=== PATIENT | male | born 1980 | race Caucasian/White ===

== ENCOUNTER 2016-11-17 08:45 | Day surgery (SDC) | payer OTHER ==
[~2016-11-17] VITALS: Ht 165.1 cm; Wt 93.1 kg
[~2016-11-17 08:45] MED LIST: AMOXICILLIN500 MG PO; IBUPROFEN600 MG PO; IBUPROFEN800 MG PO; LUMIGAN2.5 M1 OPTH; NAPROSYN500 MG PO; NAPROXEN500 MG PO; NORCO 5-325 TA1 EACH PO
--- NOTE | 2016-11-17 10:34 | NUR ---
11/17/16 1034 Allison Sanchez 1020- PT ARRIVED TO PACU WITH ORAL AIRWAY IN PLACE. ICE PLACED ON RIGHT HAND. VSS. ABD SOFT AND ROUND.
--- NOTE | 2016-11-22 07:08 | OR ---
[facility] [address] [place], [place] [address] Signed DATE OF PROCEDURE: 11/17/16 PREOPERATIVE DIAGNOSIS: Carpal tunnel syndrome, right. POSTOPERATIVE DIAGNOSIS: Carpal tunnel syndrome, right. PROCEDURE: Carpal tunnel release, right. SURGEON: Saw Freitas MD. ANESTHESIA: Was Mariam block with sedation. SPECIMENS AND COMPLICATIONS: There were no specimens or complications. TOURNIQUET TIME: Was about 25 minutes. PROCEDURE The patient was taken to the operating room. After anesthesia was performed and a Mariam block set up, the patient was gently sedated and the right upper extremity was positioned, prepped and draped in a routine sterile fashion. A volar incision was made beginning at the distal wrist flexion crease and extending distally for about 1.5 cm in line with the anterior mid axial line of the 4th ray. Skin was divided sharp l y. Subcutaneous tissue was bluntly spread. A small Heiss self-retaining retractor was placed. The transverse volar carpal ligament was identified and released with the tip of the 15 blade. Miller Porter retractor was then placed under the distal edge and the tip of a curved tenotomy scissor was used to release the transverse volar carpal ligament until the entire nerve had been decompressed distally. We then reversed direction, put the Ragnell into the proximal flap and released the distal 3 cm of the ante brachial fascia. At this point, the nerve appeared to be completely released. The wound was gently irrigated, closed in standard fashion. A sterile dressing was applied and the patient was awakened in recovery room and arrived in stable condition. Counts w ere correct and antibiotic protocols were followed. MD AZAR Miller/Harriett Electronically Signed By: SAW FREITAS MD 11/22/16 0708 PATIENT NAME: ANURADHA LIRA JR OPERATIVE REPORT DATE OF : 84 PHYSICIAN: SAW FREITAS MD REPORT #: [id number] REPORT IS CONFIDENTIAL AND NOT TO BE RELEASED WITHOUT AUTHORIZATION [facility] [address] [place] [place] [address] Signed /[id number] Electronically Signed By: SAW FREITAS MD 11/22/16 0708 PATIENT NAME: ANURADHA LIRA JR OPERATIVE REPORT DATE OF : 84 PHYSICIAN: SAW FREITAS MD REPORT #: [id number] REPORT IS CONFIDENTIAL AND NOT TO BE RELEASED WITHOUT AUTHORIZATION
== END 2016-11-17 11:42 | disposition home or self-care (01) ==
LOC: OPS 08:45 → DS 08:45 → OPS 09:45
PROVIDERS: Orthopaedic Surgery
PROC: 01N50ZZ Release Median Nerve, Open Approach (ICD-10-PCS; principal; 2016-11-17 09:45)
DX: G56.01 Carpal tunnel syndrome, right upper limb (principal)
CPT/HCPCS: 01810; J0690; J1100; J1885; J2250; J2405; J2704; J2765; J3010; J7120

== ENCOUNTER 2017-05-16 09:00 | Emergency (ER) | payer OTHER, BC ==
[~2017-05-16] VITALS: Ht 165.1 cm; Wt 93.1 kg
--- OUTSIDE RECORDS SUMMARY | ~2017-05-16 | XMS ---
Demographics + + + | Address | [address] [facility] | | | [place] [address] | + + + | Preferred Language | Unknown | + + + | Marital Status | Unknown | + + + | Roman Catholic Affiliation | Unknown | + + + | Race | Unknown | + + + | Ethnic Group | Unknown | + + + Author + + + | Author | [facility] | + + + | Organization | [facility] | + + + | Address | [address] | | | [place] [phone] | + + + | Phone | | + + + Care Team Providers + + + + | Care Life Consultant Name | Role | Phone | + + + + Unavailable | Unavailable | + + + + PROBLEMS +---------+ + + +--------+ + + | Type | Condition | ICD9-CM | [id number] | Onset | Condition | SNOMED | | | | Code | Code | Dates | Status | Code | +---------+ + + +--------+ + + | Problem | Tobacco | | Z72.0 | | Active | [id number] | | | use | | | | | | +---------+ + + +--------+ + + ALLERGIES Unknown Allergies SOCIAL HISTORY No smoking Hx information available PLAN OF CARE VITAL SIGNS MEDICATIONS Unknown Medications RESULTS No Results PROCEDURES No Known procedures IMMUNIZATIONS No Known Immunizations"
--- OUTSIDE RECORDS SUMMARY | ~2017-05-16 | XMS ---
Demographics + + + | Address | [address] | | | [place] [address] | + + + | Preferred Language | Unknown | + + + | Marital Status | Unknown | + + + | Jehovah'S Witness Affiliation | Unknown | + + + | Race | Unknown | + + + | Ethnic Group | Unknown | + + + Author + + + | Author | [facility] | + + + | Organization | [facility] | + + + | Address | [address] | | | [place] [address] | + + + | Phone | | + + + Care Team Providers + + + + | Care Reporting Lead Name | Role | Phone | + + + + Unavailable | Unavailable | + + + + PROBLEMS +---------+ + + +--------+ + + | Type | Condition | ICD9-CM | [id number] | Onset | Condition | SNOMED | | | | Code | Code | Dates | Status | Code | +---------+ + + +--------+ + + | Problem | Tobacco | | Z72.0 | | Active | [id number] | | | use | | | | | | +---------+ + + +--------+ + + ALLERGIES + + + + +---------+ | Substance | Reaction | Event Type | Date | Status | + + + + +---------+ | N.K.D.A. | Unknown | Non Drug | Oct, | Unknown | | | | Allergy | | | + + + + +---------+ SOCIAL HISTORY No smoking Hx information available PLAN OF CARE + +---------+ | Activity | Details | + +---------+ +---+ | | +---+ + + + | Follow Up | 4 Weeks Reason:null | + + + VITAL SIGNS + + + + | Height | 65 in | 2016-10-18 | + + + + | Weight | 206.8 lbs | 2016-10-18 | + + + + | BMI | 34.41 kg/m2 | 2016-10-18 | + + + + | Temperature | 97.8 degrees Fahrenheit | 2016-10-18 | + + + + | Heart Rate | 63 /min | 2016-10-18 | + + + + | Blood pressure systolic | 139 mm Hg | 2016-10-18 | + + + + | Blood pressure diastolic | 82 mm Hg | 2016-10-18 | + + + + MEDICATIONS + + + + + + + +--------+ | Medicati | Instruct | Dosage | Frequenc | Start | End Date | Duration | Status | | on | ions | | y | Date | | | | + + + + + + + +--------+ | Mobic 15 | Orally | 1 tablet | 24h | Oct, | 4 Feb, | 30 | Active | | MG | Once a | | | 2016 | 2017 | day(s) | | | | day | | | | | | | + + + + + + + +--------+ RESULTS No Results PROCEDURES No Known procedures IMMUNIZATIONS No Known Immunizations"
--- OUTSIDE RECORDS SUMMARY | ~2017-05-16 | XMS ---
Demographics + + + | Address | [address] | | | [place] [address] | + + + | Preferred Language | Unknown | + + + | Marital Status | Unknown | + + + | Latter-Day Affiliation | Unknown | + + + | Race | Unknown | + + + | Ethnic Group | Unknown | + + + Author + + + | Author | [facility] | + + + | Organization | [facility] | + + + | Address | [address] | | | [place] [phone] | + + + | Phone | | + + + Care Team Providers + + + + | Care Grocery Department Manager Name | Role | Phone | + + + + Unavailable | Unavailable | + + + + PROBLEMS +---------+ + + +--------+ + + | Type | Condition | ICD9-CM | [id number] | Onset | Condition | SNOMED | | | | Code | Code | Dates | Status | Code | +---------+ + + +--------+ + + | Problem | Tobacco | | Z72.0 | | Active | [id number] | | | use | | | | | | +---------+ + + +--------+ + + ALLERGIES Unknown Allergies SOCIAL HISTORY No smoking Hx information available PLAN OF CARE VITAL SIGNS MEDICATIONS Unknown Medications RESULTS No Results PROCEDURES No Known procedures IMMUNIZATIONS No Known Immunizations"
--- OUTSIDE RECORDS SUMMARY | ~2017-05-16 | XMS ---
Demographics + + + | Address | [address] [facility] | | | [place] [address] | + + + | Preferred Language | Unknown | + + + | Marital Status | Unknown | + + + | Sikhism Affiliation | Unknown | + + + | Race | Unknown | + + + | Ethnic Group | Unknown | + + + Author + + + | Author | [facility] | + + + | Organization | [facility] | + + + | Address | [address] | | | [place] [address] | + + + | Phone | | + + + Care Team Providers + + + + | Care Electric Motor Mechanic Name | Role | Phone | + + + + Unavailable | Unavailable | + + + + PROBLEMS +---------+ + + +--------+ + + | Type | Condition | ICD9-CM | [id number] | Onset | Condition | SNOMED | | | | Code | Code | Dates | Status | Code | +---------+ + + +--------+ + + | Problem | Tobacco | | Z72.0 | | Active | [id number] | | | use | | | | | | +---------+ + + +--------+ + + ALLERGIES Unknown Allergies SOCIAL HISTORY No smoking Hx information available PLAN OF CARE VITAL SIGNS MEDICATIONS Unknown Medications RESULTS No Results PROCEDURES No Known procedures IMMUNIZATIONS No Known Immunizations"
--- OUTSIDE RECORDS SUMMARY | ~2017-05-16 | XMS ---
Demographics + + + | Address | [address] [facility] [facility] [address] | | | [place] [address] | + + + | Preferred Language | Unknown | + + + | Marital Status | Unknown | + + + | Zoroastrianism Affiliation | Unknown | + + + | Race | Unknown | + + + | Ethnic Group | Unknown | + + + Author + + + | Author | [facility] | + + + | Organization | [facility] | + + + | Address | [address] | | | [place] [address] | + + + | Phone | | + + + Care Team Providers + + + + | Care Director Diversity Name | Role | Phone | + + + + Unavailable | Unavailable | + + + + PROBLEMS +---------+ + + +--------+ + + | Type | Condition | ICD9-CM | [id number] | Onset | Condition | SNOMED | | | | Code | Code | Dates | Status | Code | +---------+ + + +--------+ + + | Problem | Tobacco | | Z72.0 | | Active | [id number] | | | use | | | | | | +---------+ + + +--------+ + + ALLERGIES + + + + +---------+ | Substance | Reaction | Event Type | Date | Status | + + + + +---------+ | N.K.D.A. | Unknown | Non Drug | Aug, | Unknown | | | | Allergy [...] + | Height | 65 in | 2016-08-12 | + + + + | Weight | 204.6 lbs | 2016-08-12 | + + + + | BMI | 34.04 kg/m2 | 2016-08-12 | + + + + | Temperature | 98.1 degrees Fahrenheit | 2016-08-12 | + + + + | Heart Rate | 93 /min | 2016-08-12 | + + + + | Blood pressure systolic | 147 mm Hg | 2016-08-12 | + + + + | Blood pressure diastolic | 83 mm Hg | 2016-08-12 | + + + + MEDICATIONS + + + + +--------+ + +--------+ | Medicati | Instruct | Dosage | Frequenc | Start | End Date | Duration | Status | | on | ions | | y | Date | | | | + + + + +--------+ + +--------+ | Mobic 15 | Orally | 1 tablet | 24h | | | | Active | | MG | Once a | | | | | | | | | day | | | | | | | + + + + +--------+ + +--------+ RESULTS No Results PROCEDURES + + + + + | Procedure | Date Ordered | Related Diagnosis | Body Site | + + + + + | Est Level III | August 12, 2016 | | | | Intermediate | | | | + + + + + IMMUNIZATIONS No Known Immunizations"
--- OUTSIDE RECORDS SUMMARY | ~2017-05-16 | XMS ---
Demographics + + + | Address | [address] [facility] [facility] | | | [place] [address] | + + + | Preferred Language | Unknown | + + + | Marital Status | Unknown | + + + | Worship Affiliation | Unknown | + + + | Race | Unknown | + + + | Ethnic Group | Unknown | + + + Author + + + | Author | [facility] | + + + | Organization | [facility] | + + + | Address | [address] | | | [place] [address] | + + + | Phone | | + + + Care Team Providers + + + + | Care Rnp Name | Role | Phone | + + + + Unavailable | Unavailable | + + + + PROBLEMS +---------+ + + +--------+ + + | Type | Condition | ICD9-CM | [id number] | Onset | Condition | SNOMED | | | | Code | Code | Dates | Status | Code | +---------+ + + +--------+ + + | Problem | Tobacco | | Z72.0 | | Active | [id number] | | | use | | | | | | +---------+ + + +--------+ + + ALLERGIES Unknown Allergies SOCIAL HISTORY No smoking Hx information available PLAN OF CARE VITAL SIGNS MEDICATIONS Unknown Medications RESULTS No Results PROCEDURES No Known procedures IMMUNIZATIONS No Known Immunizations"
--- OUTSIDE RECORDS SUMMARY | ~2017-05-16 | XMS ---
Demographics + + + | Address | [address] | | | [place] [address] | + + + | Preferred Language | Unknown | + + + | Marital Status | Unknown | + + + | Taoism Affiliation | Unknown | + + + | Race | Unknown | + + + | Ethnic Group | Unknown | + + + Author + + + | Author | [facility] | + + + | Organization | [facility] | + + + | Address | [address] | | | [place] [address] | + + + | Phone | | + + + Care Team Providers + + + + | Care Carcass Trimmer Name | Role | Phone | + + + + Unavailable | Unavailable | + + + + PROBLEMS +---------+ + + +--------+ + + | Type | Condition | ICD9-CM | [id number] | Onset | Condition | SNOMED | | | | Code | Code | Dates | Status | Code | +---------+ + + +--------+ + + | Problem | Tobacco | | Z72.0 | | Active | [id number] | | | use | | | | | | +---------+ + + +--------+ + + ALLERGIES No Known Allergies SOCIAL HISTORY Never Assessed PLAN OF CARE + +---------+ | Activity | Details | + +---------+ +---+ | | +---+ + + + | Follow Up | 3 Months Reason:null | + + + VITAL SIGNS + + + + | Height | 65 in | 2016-11-30 | + + + + | Weight | 215.2 lbs | 2016-11-30 | + + + + | BMI | 35.81 kg/m2 | 2016-11-30 | + + + + | Temperature | 98.3 degrees Fahrenheit | 2016-11-30 | + + + + | Heart Rate | 96 /min | 2016-11-30 | + + + + | Blood pressure systolic | 149 mm Hg | 2016-11-30 | + + + + | Blood pressure diastolic | 105 mm Hg | 2016-11-30 | + + + + MEDICATIONS Unknown Medications RESULTS No Results PROCEDURES No Known procedures IMMUNIZATIONS No Known Immunizations MEDICAL (GENERAL) HISTORY + + +------+ | Type | Description | Date | + + +------+ | Medical History | Tobacco Use Disorder | | + + +------+ | Surgical History | Appendectomy | 1989 | + + +------+"
--- OUTSIDE RECORDS SUMMARY | ~2017-05-16 | XMS ---
Demographics + + + | Address | [address] [facility] | | | [place] [address] | + + + | Preferred Language | Unknown | + + + | Marital Status | Unknown | + + + | Holiness Affiliation | Unknown | + + + | Race | Unknown | + + + | Ethnic Group | Unknown | + + + Author + + + | Author | [facility] | + + + | Organization | [facility] | + + + | Address | [address] | | | [place] [address] | + + + | Phone | | + + + Care Team Providers + + + + | Care Corporate Trust Officer Name | Role | Phone | + + + + Unavailable | Unavailable | + + + + PROBLEMS +---------+ + + +--------+ + + | Type | Condition | ICD9-CM | [id number] | Onset | Condition | SNOMED | | | | Code | Code | Dates | Status | Code | +---------+ + + +--------+ + + | Problem | Tobacco | | Z72.0 | | Active | [id number] | | | use | | | | | | +---------+ + + +--------+ + + ALLERGIES No Information SOCIAL HISTORY Never Assessed PLAN OF CARE + +---------+ | Activity | Details | + +---------+ +---+ | | +---+ + + + | Follow Up | prn Reason:null | + + + VITAL SIGNS MEDICATIONS + + + + + + + +--------+ | Medicati | Instruct | Dosage | Frequenc | Start | End Date | Duration | Status | | on | ions | | y | Date | | | | + + + + + + + +--------+ | Mobic 15 | Orally | 1 tablet | 24h | Oct, | Apr, | 30 | Active | | MG | Once a | | | 2017 | 2018 | day(s) | | | | day | | | | | | | + + + + + + + +--------+ RESULTS No Results PROCEDURES + + +--------+ + | Procedure | Date Ordered | Result | Body Site | + + +--------+ + | Doctor no charge/no | Oct 26, 2016 | | | | charge for visit | | | | + + +--------+ + IMMUNIZATIONS No Known Immunizations MEDICAL (GENERAL) HISTORY + + +------+ | Type | Description | Date | + + +------+ | Medical History | Tobacco Use Disorder | | + + +------+ | Surgical History | Appendectomy | 1989 | + + +------+"
--- OUTSIDE RECORDS SUMMARY | ~2017-05-16 | XMS ---
Demographics + + + | Address | [address] [facility] [facility] | | | [place] [address] | + + + | Preferred Language | Unknown | + + + | Marital Status | Unknown | + + + | Pentecostal Affiliation | Unknown | + + + | Race | Unknown | + + + | Ethnic Group | Unknown | + + + Author + + + | Author | [facility] | + + + | Organization | [facility] | + + + | Address | [address] | | | [place] [phone] | + + + | Phone | | + + + Care Team Providers + + + + | Care Financial Auditor Name | Role | Phone | + + + + Unavailable | Unavailable | + + + + PROBLEMS +---------+ + + +--------+ + + | Type | Condition | ICD9-CM | [id number] | Onset | Condition | SNOMED | | | | Code | Code | Dates | Status | Code | +---------+ + + +--------+ + + | Problem | Tobacco | | Z72.0 | | Active | [id number] | | | use | | | | | | +---------+ + + +--------+ + + ALLERGIES Unknown Allergies SOCIAL HISTORY No smoking Hx information available PLAN OF CARE VITAL SIGNS MEDICATIONS Unknown Medications RESULTS No Results PROCEDURES No Known procedures IMMUNIZATIONS No Known Immunizations"
--- OUTSIDE RECORDS SUMMARY | ~2017-05-16 | XMS ---
Demographics + + + | Address | [address] [facility] | | | [place] [address] | + + + | Preferred Language [...] [address] | | | [place] [address] | + + + | Phone | | + + + Care Team Providers + + + + | Care Dimensional Inspector Name | Role | Phone | + + + + Unavailable | Unavailable | + + + + PROBLEMS +---------+ + + +--------+ + + | Type | Condition | ICD9-CM | [id number] | Onset | Condition | SNOMED | | | | Code | Code | Dates | Status | Code | +---------+ + + +--------+ + + | Problem | Tobacco | | Z72.0 | | Active | [id number] | | | use | | | | | | +---------+ + + +--------+ + + ALLERGIES Unknown Allergies SOCIAL HISTORY No smoking Hx information available PLAN OF CARE + +---------+ | Activity | Details | + +---------+ +---+ | | +---+ + + + | Follow Up | 2 Months Reason:null | + + + VITAL [...] Once a | | | 2016 | 2018 | day(s) | | | | day | | | | | | | + + + + + + + +--------+ RESULTS No Results PROCEDURES + + + + + | Procedure | Date Ordered | Related Diagnosis | Body Site | + + + + + | Est Level II | Oct 27, 2016 | | | | Limited | | | | + + + + + IMMUNIZATIONS No Known Immunizations"
--- OUTSIDE RECORDS SUMMARY | ~2017-05-16 | XMS ---
Demographics + + + | Address | [address] [facility] | | | [place] [address] | + + + | Preferred Language [...] [address] | | | [place] [address] | + + + | Phone | | + + + Care Team Providers + + + + | Care Hl7 Interface Developer Name | Role | Phone | + + + + Unavailable | Unavailable | + + + + PROBLEMS +---------+ + + +--------+ + + | Type | Condition | ICD9-CM | [id number] | Onset | Condition | SNOMED | | | | Code | Code | Dates | Status | Code | +---------+ + + +--------+ + + | Problem | Tobacco | | Z72.0 | | Active | [id number] | | | use | | | [...] + + + | Follow Up | 5 wk, Reason:null | + + + VITAL SIGNS + + + + | Height | 65 in | 2016-09-09 | + + + + | Weight | 204.4 lbs | 2016-09-09 | + + + + | BMI | 34.01 kg/m2 | 2016-09-09 | + + + + | Temperature | 98.3 degrees Fahrenheit | 2016-09-09 | + + + + | Heart Rate | 104 /min | 2016-09-09 | + + + + | Blood pressure systolic | 139 mm Hg | 2016-09-09 | + + + + | Blood pressure diastolic | 87 mm Hg | 2016-09-09 | + + + + MEDICATIONS + [...] 1 tablet | 24h | | | 30 | Active | | MG [...] + + | Est Level II | September 09, 2016 | | | | Limited | | | | + + + + + IMMUNIZATIONS No Known Immunizations"
--- OUTSIDE RECORDS SUMMARY | ~2017-05-16 | XMS ---
Demographics + + + | Address | [address] [facility] | | | [place] [address] | + + + | Preferred Language | Unknown | + + + | Marital Status | Unknown | + + + | Latter Day [...] [address] | | | [place] [address] | + + + | Phone | | + + + Care Team Providers + + + + | Care Processing Technologist Name | Role | Phone | + + + + Unavailable | Unavailable | + + + + PROBLEMS +---------+ + + +--------+ + + | Type | Condition | ICD9-CM | [id number] | Onset | Condition | SNOMED | | | | Code | Code | Dates | Status | Code | +---------+ + + +--------+ + + | Problem | Tobacco | | Z72.0 | | Active | [id number] | | | use | | | | | | +---------+ + + +--------+ + + ALLERGIES No Information SOCIAL HISTORY Never Assessed PLAN OF CARE VITAL SIGNS MEDICATIONS Unknown [...]
--- OUTSIDE RECORDS SUMMARY | ~2017-05-16 | XMS ---
Demographics + + + | Address | [address] [facility] | | | [place] [address] | + + + | Preferred Language | Unknown | + + + | Marital Status | Unknown | + + + | Scientologist Affiliation | Unknown | + + + | Race | Unknown | + + + | Ethnic Group | Unknown | + + + Author + + + | Author | [facility] | + + + | Organization | [facility] | + + + | Address | [address] | | | [place] [phone] | + + + | Phone | | + + + Care Team Providers + + + + | Care Supervisor [employer] Name | Role | Phone | + + + + Unavailable | Unavailable | + + + + PROBLEMS +---------+ + + +--------+ + + | Type | Condition | ICD9-CM | SOH72-KZ | Onset | Condition | SNOMED | | | | Code | Code | Dates | Status | Code | +---------+ + + +--------+ + + | Problem | Tobacco | | Z72.0 | | Active | [id number] | | | use | | | [...]
[2017-05-16] MEDS ORDERED: PIROXICAM20 MG PO (09:08)
[2017-05-16] MEDS ORDERED: GABAPENTIN300 MG PO (09:09)
== END 2017-05-16 09:14 | disposition home or self-care (01) ==
LOC: ED 09:00
DX: M25.562 Pain in left knee (principal); M25.572 Pain in left ankle and joints of left foot

== ENCOUNTER 2017-06-22 09:49 | Emergency (ER) | payer OTHER, BC ==
[~2017-06-22] VITALS: Ht 165.1 cm; Wt 97.7 kg
[~2017-06-22 09:49] MED LIST changes: +GABAPENTIN300 MG PO; +PIROXICAM20 MG PO
== END 2017-06-22 10:13 | disposition home or self-care (01) ==
LOC: ED 09:49
DX: H57.12 Ocular pain, left eye (principal)

== ENCOUNTER 2017-08-16 18:40 | Emergency (ER) | payer OTHER, BC ==
[~2017-08-16] VITALS: Ht 165.1 cm; Wt 97.7 kg
[2017-08-16] MEDS ORDERED: ACETAMINOPHEN-1 EAC1 PO (20:34)
== END 2017-08-16 20:41 | disposition home or self-care (01) ==
LOC: ED 18:40
DX: M77.11 Lateral epicondylitis, right elbow (principal); F17.200 Nicotine dependence, unspecified, uncomplicated; Z79.899 Other long term (current) drug therapy
CPT/HCPCS: 99283

== ENCOUNTER 2019-01-24 22:23 | Emergency (ER) | payer MEDICARE ==
[~2019-01-24] VITALS: Ht 165.1 cm; Wt 98.6 kg
[~2019-01-24 22:23] MED LIST changes: +ACETAMINOPHEN-1 EAC1 PO
== END 2019-01-24 23:34 | disposition home or self-care (01) ==
LOC: ED 22:23
DX: S01.512A Laceration without foreign body of oral cavity, initial encounter (principal); F17.200 Nicotine dependence, unspecified, uncomplicated; X58.XXXA Exposure to other specified factors, initial encounter
CPT/HCPCS: 99282; A9270

== ENCOUNTER 2019-12-25 19:40 | Emergency (ER) | payer MEDICARE ==
[~2019-12-25] VITALS: Ht 165.1 cm; Wt 99.9 kg
--- OUTSIDE RECORDS SUMMARY | ~2019-12-25 | XMS | Encounter Summary ---
Demographics + + + | Address | [address] | | | [place] [address] | + + + | Home Phone | | + + + | Preferred Language | Unknown | + + + | Marital Status | | + + + | Evangelical Affiliation | Unknown | + + + | Race | White | + + + | Ethnic Group | Not or | + + + Author + + + | Author | [facility] | | | and [place] | + + + | Organization | [facility] | | | and [place] | + + + | Address | Unknown | + + + | Phone | Unavailable | + + + Support + + + + + | Name | Relationship | Address | Phone | + + + + + | Lucrecia Zabala | ECON | [place] | | | | | [address] | | + + + + + | Daysi Shafer | ECON | [address] | | | | | [place] [address] | | + + + + + Care Team Providers + +------+ + | Care Claim Clerk Name | Role | Phone | + +------+ + PCP | Unavailable | + +------+ + Encounter Details +--------+ + + + + | Date | Type | Department | Care Team | Description | +--------+ + + + + | 08/30/ | Hospital | [facility] | Jaqui Hayes | | | 2011 | Encounter | MED CTR EMERGENCY | MD Ta [address] | | | | | CENTER [address] | [facility], | | | | | [place], [place] | [place] [address] | | | | | [address] | [phone] | | | | | [phone] | | | +--------+ + + + + Social History + +-------+ +--------+------+ | Tobacco Use | Types | Packs/Day | Years | Date | | | | | Used | | + +-------+ +--------+------+ | Never Assessed | | | | | + +-------+ +--------+------+ + + + | Sex Assigned at | Date Recorded | | | | + + + | Not on file | | + + + documented as of this encounter Medications at Time of Discharge + + + +---------+ + + | Medication | Sig | Dispensed | Refills | Start | End Date | | | | | | Date | | + + + +---------+ + + | gabapentin | 1 capsule by mouth | | 0 | 02/22/20 | | | (NEURONTIN) 300 mg | at bedtime for 5-7 | | | 11 | 3 | | capsule | days, then increase | | | | | | | to 1 capsule twice | | | | | | | daily, then up to 3 | | | | | | | times daily as | | | | | | | tolerated | | | | | + + + +---------+ + + | traMADol (ULTRAM) | 1-2 tablets by mouth | | 0 | 03/25/19 | | | 50 mg tablet | three times daily | | | 12 | 7 | | | as needed. Must last | | | | | | | 30 days | | | | | + + + +---------+ + + documented as of this encounter ED Notes Jaqui Hayes MD - 08/31/2011 8:59 AM PDTDATE: 08/31/2011 PRIMARY CARE PHYSICIAN: [facility] CHIEF COMPLAINT: Back injury. HISTORY OF PRESENT ILLNESS: This is a 31-year-old male who comes ambulatory to the emergenc y [facility]. The patient indicates that he jumped off a trailer from about a 3-foot heigh t 2 days ago. He had onset of pain in his low back, radiating down his left leg. He has had previous problems with thoraci c degenerative disk disease. He has received injections fro ta [facility]. He is on tramadol, was n ot able to find his tramadol and had not made an y attempts to get some refills, but is more concerned about what might be causing his back pain in a new pattern. He denies any bowel or bladder incontine nce. PAST MEDICAL HISTORY: Previous appendectomy, thoracic back pain. MEDICATIONS 1. Tramadol. 2. He took some Advil this morning. ALLERGIES: NONE. REVIEW OF SYSTEMS: As noted above. No leg weakness. PHYSICAL EXAMINATION VITAL SIGNS: Temp 98.5, respirations 18, heart rate 92, blood pressure 129/82, O2 saturatio n 99% room air, 85 kg. GENERAL: A well-appearing male. SKIN: Warm, dry. HEAD: Normocephalic, atraumatic. NECK: Nontender. Normal range of motion. BACK: He is nontender to palpation along the midline thoracic and lumbar spine. There is no bony defo rmity, step-off, no external signs of trauma. He indicates his area of pain in t he left lumbosacral a chris and down into his left hip. He has a negative straight leg raise bilaterally. Excellent strength to bilateral lower extremities. Ambulatory here without dif ficulty. EMERGENCY DEPARTMENT COURSE: Plain films of the lumbar spine were obtained. These did not s how any ev idence of fracture, were compared with his previous MR of the thoracic spine, wh ich includes one. The se films will be over-read by Radiology. He was given tramadol and naproxen here, along with a cool pack, and advised he needs routi ne doses o f anti-inflammatory. He should avoid reinjury and follow up with his primary car e. IMPRESSION LOW BACK SPRAIN. DICTATED BY: Jaqui Hayes MD Emergency Medicine JOB #: [id number] EXT JOB #:[id number] <Electronicall y Signed by Jaqui Hayes MD> 09/02/11 1152 documented in this encounter Plan of Treatment Not on filedocumented as of this encounter Procedures + +--------+ + + + | Procedure Name | Priori | Date/Time | Associated Diagnosis | Comments | | | ty | | | | + +--------+ + + + | XR LUMBAR SPINE 2 OR | | 08/31/2011 | | Results for this | | 3 VW | | 8:59 AM | | procedure are in the | | | | PDT | | results section. | + +--------+ + + + documented in this encounter Results XR Lumbar Spine 2 or 3 Vw (08/31/2011 8:59 AM PDT) + + | Specimen | + + | | + + + + + | Narrative | Performed At | + + + | [facility] Diagnostic Imaging Department | [facility] | | [address] [facility] | [facility] | | THREE VIEWS LUMBAR SPINE, | DIAG IMG | | 08/31/2011 CLINICAL HISTORY: PAIN FOLLOWING INJURY. | | | COMPARISON: Thoracic radiographs 09/28/2009. FINDINGS: Five | | | non-rib bearing, lumbar-type vertebrae are visible. There is mild, | | | generalized right stratton lumbar curvature. Lumbar vertebral height, | | | disk spaces and alignment are otherwise maintained, without evident | | | fracture, convincing spondylolysis or spondylolisthesis. Sacroiliac | | | joints, imaged s acrum, bony pelvis and lower ribs are unremarkable. | | | There is moderate formed stool within the imaged colon. | | | IMPRESSION: 1. RIGHTWARD LUMBAR CURVATURE WITHOUT EVIDENCE OF | | | TRAUMATIC BONY INJURY. 2. COLONIC STOOL RETENTION. Dictated | | | Date/Time: 08/31/2011 10:46 Transcribed Date/Time: 08/31/2011 | | | 10:52 Conference Specialist: <Electronically Signed by Yonatan Hernandez | | | MD George> 08/31/11 1145 | | + + + + + | Procedure Note | + + | Ike Light Conversion - 04/19/2013 5:33 PM [facility] | | Diagnostic Imaging Department [address] [place] [address] | | THREE VIEWS LUMBAR SPINE, 08/31/2011 CLINICAL HISTORY: | | PAIN FOLLOWING INJURY. COMPARISON: Thoracic radiographs 09/28/2009. FINDINGS: Five | | non-rib bearing, lumbar-type vertebrae are visible. There is mild, generalized | | rightward lumbar curvature. Lumbar vertebral height, disk spaces and alignment are | | otherwise maintained, without evident fracture, convincing spondylolysis or | | spondylolisthesis. Sacroiliac joints, imaged sacrum, bony pelvis and lower ribs are | | unremarkable. There is moderate formed stool within the imaged colon. IMPRESSION: 1. | | RIGHTWARD LUMBAR CURVATURE WITHOUT EVIDENCE OF TRAUMATIC BONY INJURY. 2. COLONIC STOOL | | RETENTION. Dictated Date/Time: 08/31/2011 10:46Transcribed Date/Time: 08/31/2011 | | 10:52Transcriptionist: <Electronically Signed by Yonatan Vazquez MD> 08/31/11 4195 | |FINDINGS: Five non-rib bearing, lumbar-type vertebrae are visible. There is mild, general ized right | |stratton lumbar curvature. Lumbar vertebral height, disk spaces and alignment are otherwise ma intained, | |without evident fracture, convincing spondylolysis or spondylolisthesis. Sacroiliac joints , imaged s | |acrum, bony pelvis and lower ribs are unremarkable. There is moderate formed stool within the imaged | | colon. | | | |IMPRESSION: | |1. RIGHTWARD LUMBAR CURVATURE WITHOUT EVIDENCE OF TRAUMATIC BONY INJURY. | | | |2. COLONIC STOOL RETENTION. | | | |Dictated Date/Time: 08/31/2011 10:46 | |Transcribed Date/Time: 08/31/2011 10:52 | |Conference Specialist: | |<Electronically Signed by Yonatan Vazquez MD> 08/31/11 4284 | + + + +---------+ + + | Performing | Address | City/State/Zipcode | Phone Number | | Organization | | | | + +---------+ + + | [facility] | | | | | [place] | | | | + +---------+ + + documented in this encounter Visit Diagnoses Not on filedocumented in this encounter"
--- OUTSIDE RECORDS SUMMARY | ~2019-12-25 | XMS | Encounter Summary ---
Demographics + + + | Address | [address] | | | [place] [address] | + + + | Home Phone | | + + + | Preferred Language | Unknown | + + + | Marital Status | | + + + | Spiritism Affiliation | Unknown | + + + | Race | White | + + + | Ethnic Group | Not or | + + + Author + + + | Author | [facility] | | | and [place] | + + + | Organization | [facility] | | | and [place] | + + + | Address | Unknown | + + + | Phone | Unavailable | + + + Support + + + + + | Name | Relationship | Address | Phone | + + + + + | Lucrecia Zabala | ECON | [place] | | | | | [address] | | + + + + + | Daysi Shafer | ECON | [address] | | | | | [place] [address] | | + + + + + Care Team Providers + +------+ + | Care Safety Aide Name | Role | Phone | + +------+ + | No, Physician | PCP | Unavailable | + +------+ + Reason for Referral Evaluate & Treat (Routine) +--------+ + + + + + | Status | Reason | Specialty | Diagnoses / | Referred By | Referred To | | | | | Procedures | Contact | Contact | +--------+ + + + + + | Closed | Specialty | Physical | Diagnoses | Sukhdev, | Dipesh Cabrales | | | Services | Medicine and | Carpal | Rere Cisneros, | Chilo Pace MD [address] | | | Required | Rehabilitatio | tunnel | Need | [address] | | | | n | syndrome of | updated | [place], | | | | | left wrist | address | [place] [address] | | | | | | | Phone: | | | | | | | [phone] | | | | | | | Fax: | | | | | | | [phone] | +--------+ + + + + + Reason for Visit + + + | Reason | Comments | + + + | Wrist Pain | RM6; left wrist injury repetitive use | + + + Encounter Details +--------+---------+ + + + | Date | Type | Department | Care Team | Description | +--------+---------+ + + + | 09/23/ | Office | [facility] | Rere Santizo, | Carpal tunnel | | 2017 | Visit | CARE [address] | Need updated | syndrome of left | | | | [place] [facility] [place] | address | wrist (Primary Dx) | | | | [address] | | | | | | [phone] | | | +--------+---------+ + + + Social History + + + +--------+------+ | Tobacco Use | Types | Packs/Day | Years | Date | | | | | Used | | + + + +--------+------+ | Current Every Day | Cigarettes | 0.5 | | | | Smoker | | | | | + + + +--------+------+ + + +---------+ + | Alcohol Use | Drinks/Week | oz/Week | Comments | + + +---------+ + | Yes | | | | + + +---------+ + + + + | Sex Assigned at | Date Recorded | | | | + + + | Not on file | | + + + documented as of this encounter Last Filed Vital Signs + + + + + | Vital Sign | Reading | Time Taken | Comments | + + + + + | Blood Pressure | 140/80 | 09/23/2016 9:12 AM | | | | | PDT | | + + + + + | Pulse | 81 | 09/23/2016 9:12 AM | | | | | PDT | | + + + + + | Temperature | 37.2 C (99 F) | 09/23/2016 9:12 AM | | | | | PDT | | + + + + + | Respiratory Rate | 16 | 09/23/2016 9:12 AM | | | | | PDT | | + + + + + | Oxygen Saturation | 96% | 09/23/2016 9:12 AM | | | | | PDT | | + + + + + | Inhaled Oxygen | - | - | | | Concentration | | | | + + + + + | Weight | 93.9 kg (207 lb) | 09/23/2016 9:12 AM | | | | | PDT | | + + + + + | Height | 165.1 cm (5' 5") | 09/23/2016 9:12 AM | | | | | PDT | | + + + + + | Body Mass Index | 34.45 | 09/23/2016 9:12 AM | | | | | PDT | | + + + + + documented in this encounter Patient Instructions Patient Instructions Rere Santizo MD - 09/23/2016 9:15 AM PDT Carpal Tunnel Syndrome Carpal tunnel syndrome is a painful condition of the wrist and arm. It is caused by pressur e on the median nerve. The median nerve is one of the nerves that give feeling and movement to the hand. It passes through a tunnel in the wrist called the carpal tunnel. This tunnel is made up of bones and ligaments. Narrowing of this tunnel or swelling of the tissues inside the tunnel puts press ure on the median nerve. This causes numbness, pins and needles, or electric shooting pains in your hand and forearm. Often the pain is worse at night and may wake you when you are asl eep. Carpal tunnel syndrome may occur during and with use of control pills. It i s more common in workers who must often bend their wrists. It is also common in people who w ork with power tools that cause strong vibrations. Home care Rest the painful wrist. Avoid repeated bending of the wrist back and forth. This puts pr essure on the median nerve. Avoid using power tools with strong vibrations. If you were given a splint, wear it at night while you sleep. You may also wear it durin g the day for comfort. Move your fingers and wrists often to avoid stiffness. Elevate your arms on pillows when you lie down. Try using the unaffected hand more. Try not to hold your wrists in a bent, downward position. Sometimes changes in the work place may ease symptoms. If you type most of the day, it m ay help to change the position of your keyboard or add a wrist support. Your wrist should be in a neutral position and not bent back when typing. You may wedfmif-cwb-jeudfmz pain medicine to treat pain and inflammation, unless anoth er medicine was prescribed.Anti-inflammatory pain medicines, such as ibuprofen or naproxen may be more effective than acetaminophen, which treats pain, but not inflammation.If you have chronic liver or kidney disease or ever had a stomach ulcer or GI bleeding, talk with y our doctor before using these medicines. Opioid pain medicine will only give temporary relief and does not treat the problem. If pain continues, you may need a shot of a steroid drug into your wrist. If the above methods fail, you may need surgery. This will open the carpal tunnel and re lease the pressure on the trapped nerve. Follow-up care Follow up with your healthcare provider, keely advised, if the pain doesn t begin to imp rove within the next week. If X-rays were taken,you will be notified of any new findings that may affect your care. When to seek medical advice Call your healthcare provider right away if any of these occur: Pain not improving with the above treatment Fingers or hand become cold, blue, numb, or tingly Your whole arm becomes swollen or weak Date Last Reviewed: 02/02/201519992606-9988 [employer] [address] [place] [address], [place] [address]. All [facility] ts reserved. This information is not intended as a substitute for professional medical care. Always follow your healthcare professional's instructions. documented in this encounter Progress Notes Rere Santizo MD - 09/23/2016 9:15 AM PDTFormatting of this note might be different fro m the original. Subjective: Chief Complaint: Wrist Pain (RM6; left wrist injury repetitive use) History of Present Illness: Angel is a 36 y.o. male who comes in complaining of numbness L hand comes and goes wakes hi m up at night. He is working at [employer]. He just started there and he doesn't want to claim WC. He never had this before. He is working with his hands all day. He denies any w eakness. No other complaints. Patient's medications, allergies, past medical, surgical, social and family histories were reviewed and updated as appropriate. ROS: see HPI Objective: BP 140/80 | Pulse 81 | Temp 37.2 C (99 F) (Temporal) | Resp 16 | Ht 1.651 m (5' 5") | Wt 93.9 kg (207 lb) | SpO2 96% | BMI 34.45 kg/m General Appearance: Alert, cooperative, no distress, appears stated age Both hands are symmetric. No swelling bruising or deformity. 5/5 tar leveler strength bilat. +tinels on L neg phelans bilat. Assessment and Plans: 1. Carpal tunnel syndrome of left wrist EMG 1 LIMB * [facility] [place] [facility] - AMB Referral wrist brace at home and at night Ibuprofen 600 mg po tid w food for a week Ice the wrist when he gets home from work 20 min. Avoid any activity at home that would flare up the CTS. F/u in 2 wks. This note was dictated using [employer] voice recognition software. Occasional wrong- word or s ound-alike substitutions may have occurred due to the inherent limitations of voice recognit ion software. Please read the chart carefully and recognize, using context, where these subs titutions have occurred. documented in this en counter Plan of Treatment + + +--------+ + + | Name | Type | Priori | Associated Diagnoses | Order Schedule | | | | ty | | | + + +--------+ + + | EMG 1 LIMB | Neurology | Routin | Carpal tunnel | Ordered: 09/23/2016 | | | | e | syndrome of left | | | | | | wrist | | + + +--------+ + + + + +--------+ + + | Name | Type | Priori | Associated Diagnoses | Order Schedule | | | | ty | | | + + +--------+ + + | * [facility] [place] | Outpatient | Routin | Carpal tunnel | Ordered: 11/05/2016 | | Physiatry - AMB | Referral | e | syndrome of left | | | Referral | | | wrist | | + + +--------+ + + documented as of this encounter Visit Diagnoses + + | Diagnosis | + + | Carpal tunnel syndrome of left wrist - Primary Carpal tunnel syndrome | + + documented in this encounter
--- OUTSIDE RECORDS SUMMARY | ~2019-12-25 | XMS | Encounter Summary ---
Demographics + + + | Address | [address] | | | [place] [address] | + + + | Home Phone | | + + + | Preferred Language | Unknown | + + + | Marital Status | | + + + | Methodist Affiliation | Unknown | + + + | Race | White | + + + | Ethnic Group | Not or | + + + Author + + + | Author | [facility] | | | and [place] | + + + | Organization | [facility] | | | and [place] | + + + | Address | Unknown | + + + | Phone | Unavailable | + + + Support + + + + + | Name | Relationship | Address | Phone | + + + + + | Lucrecia Zabala | ECON | [place] | | | | | [address] | | + + + + + | Daysi Lira | ECON | [address] | | | | | [place] [address] | | + + + + + Care Team Providers + +------+ + | Care Director [facility] Name | Role | Phone | + +------+ + | Lydia Simpson PA-C | PCP | | + +------+ + Encounter Details +--------+ + + + + | Date | Type | Department | Care Team | Description | +--------+ + + + + | 06/04/ | Hospital | [facility] | Byron Pryor | | | 2012 - | Encounter | MED CTR EMERGENCY | MD Leon [address] | | | | | ETOILE [address] | [facility] | | | 06/05/ | | [place] | [place] [address] | | | 2012 | | [address] | [phone] | | | | | [phone] | | | +--------+ + + + + Social History + +-------+ +--------+------+ | Tobacco Use | Types | Packs/Day | Years | Date | | | | | Used | | + +-------+ +--------+------+ | Current Every Day | | | | | | Smoker | | | | | + +-------+ +--------+------+ + + +---------+ + | Alcohol Use | Drinks/Week | oz/Week | Comments | + + +---------+ + | Not Asked | | | | + + +---------+ [...] + + + +---------+ + + | ibuprofen | Take 600 mg by mouth | | 0 | 11/24/19 | | | (ADVIL,MOTRIN) 600 | 3 times daily. | | | 12 | | | MG tablet | | | | | | + + + +---------+ + + | amoxicillin | one tablet twice | | 0 | 11/24/19 | | | (AMOXIL) 500 MG | daily for 10 days | | | 12 | 7 | | tablet | | | | | | + + + +---------+ + + | naproxen | Take 500 mg by mouth | | 0 | 11/24/19 | | | (NAPROSYN) 500 mg | every 12 hours. | | | 12 | 7 | | tablet | | | | | | + + [...] documented as of this encounter ED Notes Byron Pryor MD - 06/04/2012 11:27 PM PDT [place], [place] [address] Patient Name: ANURADHA LIRA Coco BARRY Provider: Unit #: [id number] Location: : 1980 DATE: 06/04/2012 TIME OF EXAM: 2315. REASON FOR PRESENTATION: Left testicle pain. HISTORY OF PRESENT ILLNESS: The patient is a 32-year-old male with left testicle pain that has been present for about a week. Notes some swelling in the testicle over that time span as well. Pain is moderate severity, localized to left testicle, does not radiate up into the abdome n or flank. He has no associated dysuria or hematuria. Has not had any cloudiness in his ur ine. He notes that he had some whitish discharge with some diarrhea today, but no pain in h is anus. He has bi drainage or discharge from his penis. No lesions on his penis. He has not been febrile. No chest pain, palpitations, shortness of breath, abdomen pain, v omiting, diarrhea, dysuria, hematuria, flank pain, skin rashes, lesions, or other symptoms or complaints. PAST MEDICAL HISTORY: Gastroesophageal reflux disease, status post appendectomy. FAMILY HISTORY: Noncontributory. SOCIAL HISTORY: Smokes cigarettes. Denies alcohol or street drug use. MEDICATIONS 1. Doxycycline. 2. Ibuprofen. 3. Tramadol. ALLERGIES: NO KNOWN DRUG ALLERGIES. REVIEW OF SYSTEMS: As noted in HPI, otherwise negative. PHYSICAL EXAMINATION VITAL SIGNS: Blood pressure 137/92, heart rate 111, respiratory rate 18, temperature 98.1, oxygen saturation 97% room air. GENERAL: The patient is nontoxic appearing, in no acute distress. HEENT: Normocephalic. Oropharynx moist and patent. RESPIRATORY: The patient is in no respiratory distress. ABDOMEN: Soft, nontender to palpation. No rebound, guarding, palpable mass. No CVA tendern ess to percussion. SKIN: Intact without rashes or lesions. NEUROLOGIC: The patient alert, oriented, appropriate, [facility] with normal balance and gait. EXTREMITIES: Examination of the left testicle with minimal swelling. No erythema, warmth, or fluctuance of the scrotum. Minimal tenderness of the testicle, primarily along the epidi dymis. There is no hernia. Penis is without lesions or discharge. DISCUSSION: The patient declined rectal examination. The patient is currently being treate d with doxycycline for possible sexually transmitted infection. He was tested for the last week. He also received an injection of antibiotics at his primary care physician's office. It is possible his epididymitis could be caused by E coli, which would not be covered by t hese antibiotics. Will start him on Cipro, will have him followup for an outpatient ultraso und; an emergent ultrasound is not indicated given the duration of symptoms and a relativel y benign clinical course and exam. I do not suspect torsion. The patient is to continue his current antibiotic regimen, add ciprofloxacin as directed, continue ibuprofen as prescribed for pain, and followup with his primary care doctor as wel l as for ultrasound. He is agreeable with this plan. DIAGNOSIS TESTICULAR PAIN, SUSPECT EPIDIDYMITIS. PLAN: As above. DICTATED BY: Byorn Pryor MD Emergency Medicine JOB #: [id number] EXT JOB #:[id number] <<Signature on File>> Byron Pryor MD06/05/12 2151 < documented in this encounter Plan of Treatment Not on filedocumented as of this encounter Visit Diagnoses Not on filedocumented in this encounter"
--- OUTSIDE RECORDS SUMMARY | ~2019-12-25 | XMS | Encounter Summary ---
Demographics + + + | Address | [address] | | | [place] [address] | + + + | Home Phone | | + + + | Preferred Language | Unknown | + + + | Marital Status | | + + + | Jain Affiliation | Unknown | + + + | Race | White | + + + | Ethnic Group | Not or | + + + Author + + + | Author | [facility] | | | and [place] | + + + | Organization | [facility] | | | and [place] | + + + | Address | Unknown | + + + | Phone | Unavailable | + + + Support + + + + + | Name | Relationship | Address | Phone | + + + + + | Lucrecia Zabala | ECON | [place] | | | | | [address] | | + + + + + | Daysi Shafer | ECON | [address] | | | | | [place] [address] | | + + + + + Care Team Providers + +------+ + | Care Director Of Labor Relations Name | Role | Phone | + +------+ + PCP | Unavailable | + +------+ + Encounter Details +--------+ + + + + | Date | Type | Department | Care Team | Description | +--------+ + + + + | 03/11/ | Hospital | [facility] | Elias, Eric Bellamy, | | | 2008 | Encounter | [facility] | MD [address] | | | | | CENTER [address] | [facility] [place] | | | | | [place], [place] | [place] [address] | | | | | [address] | [phone] | | | | | [phone] | | | +--------+ + + + [...] + + documented as of this encounter Plan of Treatment Not on filedocumented as of this encounter Visit Diagnoses Not on filedocumented in this encounter"
--- OUTSIDE RECORDS SUMMARY | ~2019-12-25 | XMS | Encounter Summary ---
Demographics + + + | Address | [address] | | | [place] [address] | + + + | Home Phone | | + + + | Preferred Language | Unknown | + + + | Marital Status | | + + + | Yazidism Affiliation | Unknown | + + + | Race | White | + + + | Ethnic Group | Not or | + + + Author + + + | Author | [facility] | | | and [place] | + + + | Organization | [facility] | | | and [place] | + + + | Address | Unknown | + + + | Phone | Unavailable | + + + Support + + + + + | Name | Relationship | Address | Phone | + + + + + | Lucrecia Zabala | ECON | [place] | | | | | [address] | | + + + + + | Daysi Shafer | ECON | [address] | | | | | [place] [address] | | + + + + + Care Team Providers + +------+ + | Care Hydraulic Oil Tool Operator Name | Role | Phone | + +------+ + PCP | Unavailable | + +------+ + Encounter Details +--------+ + + + + | Date | Type | Department | Care Team | Description | +--------+ + + + + | 02/19/ | Hospital | [facility] | RennyyaimavirgilioMaximiliano woodward | | | 2009 - | Encounter | MED CTR [facility] | MD Annia [address] | | | | | [address] [place] | [place] | | | 03/12/ | | [place] [address] | [address] | | | 2009 | | [phone] | | | +--------+ + + + [...]
--- OUTSIDE RECORDS SUMMARY | ~2019-12-25 | XMS | Encounter Summary ---
Demographics + + + | Address | [address] | | | [place] [address] | + + + | Home Phone | | + + + | Preferred Language | Unknown | + + + | Marital Status | | + + + | Oriental Orthodox Affiliation | Unknown | + + + | Race | White | + + + | Ethnic Group | Not or | + + + Author + + + | Author | [facility] | | | and [place] | + + + | Organization | [facility] | | | and [place] | + + + | Address | Unknown | + + + | Phone | Unavailable | + + + Support + + + + + | Name | Relationship | Address | Phone | + + + + + | Lucrecia Zabala | ECON | [place] | | | | | [address] | | + + + + + | Daysi Shafer | ECON | [address] | | | | | [place] [address] | | + + + + + Care Team Providers + +------+ + | Care Approver Name | Role | Phone | + +------+ + | No, Physician | PCP | Unavailable | + +------+ + Reason for Visit +--------+--------+ + | Reason | Onset | Comments | | | Date | | +--------+--------+ + | Other | 11/18/ | | | | 2016 | | +--------+--------+ + Encounter Details +--------+ + + + + | Date | Type | Department | Care Team | Description | +--------+ + + + + | 11/18/ | Telephone | [facility] | Rere Santizo, | Other | | 2016 | | CARE [address] | Need updated | | | | | [place] | address | | | | | [address] | | | | | | [phone] | | | +--------+ + + + + Social History + + [...] + + documented as of this encounter Miscellaneous Notes Telephone Encounter - Jamia Ortiz Cert MA - 11/21/2016 3:36 PM PDTFormatting of this no te might be different from the original. After review the office contacting pt was Physiatry. (Referral Notes Number of Notes: 7 Type Date User Summary Attachment General 11/17/2016 Osmar Ram - - Note Called patient to schedule. He requested a call back or patient will return call. elephone Nuha Mathews 11/18/2016 4:52 PM PDTContact/Caller: angel Shafer Contact Number: [phone] Provider/Nurse: armando Reason for Call: Patient stated he missed a call from urgent care on 11/17/16 Last Appointment: 09/23/16 P M PDTdocumented in this encounter Plan of Treatment Not on filedocumented as of this encounter Visit Diagnoses Not on filedocumented in this encounter"
--- OUTSIDE RECORDS SUMMARY | ~2019-12-25 | XMS | Encounter Summary ---
Demographics + + + | Address | [address] | | | [place] [address] | + + + | Home Phone | | + + + | Preferred Language | Unknown | + + + | Marital Status | | + + + | Episcopalian Affiliation | Unknown | + + + | Race | White | + + + | Ethnic Group | Not or | + + + Author + + + | Author | [facility] | | | and [place] | + + + | Organization | [facility] | | | and [place] | + + + | Address | Unknown | + + + | Phone | Unavailable | + + + Support + + + + + | Name | Relationship | Address | Phone | + + + + + | Lucrecia Zabala | ECON | [place] | | | | | [address] | | + + + + + | Daysi Shafer | ECON | [address] | | | | | [place] [address] | | + + + + + Care Team Providers + +------+ + | Care Agricultural And Forestry Supervisor Name | Role | Phone | + +------+ + | Unknown, Doctor | PCP | | + +------+ + Reason for Visit + + + | Reason | Comments | + + + | Jaw Pain | x 2 days, left side | + + + Encounter Details +--------+---------+ + + + | Date | Type | Department | Care Team | Description | +--------+---------+ + + + | 04/17/ | Office | [facility] | Debbie Gil | Acute bacterial | | 2019 | Visit | [address] | [address] | sinusitis (Primary | | | | [address] | [address] | Dx); Failure of | | | | [address] [facility] | [place], [place] | outpatient | | | | [place] [address] | [id number] | treatment; Acute | | | | [phone] | [phone] | abscess of jaw; Oral | | | | | | thrush | +--------+---------+ + + + Social History + + + +--------+------+ | Tobacco Use | Types | Packs/Day | Years | Date | | | | | Used | | + + + +--------+------+ | Current Every Day | Cigarettes | 0.5 | 15 | | | Smoker | | | | | + + + +--------+------+ + +---+---+---+ | Smokeless Tobacco: | | | | | Never Used | | | | + +---+---+---+ + + +---------+ + | Alcohol Use | Drinks/Week | oz/Week | Comments | + + +---------+ + | Yes | | | Rare | + + +---------+ + + + [...] + + + | Blood Pressure | 132/78 | 04/17/2018 10:00 AM | | | | | PST | | + + + + + | Pulse | 118 | 04/17/2018 10:00 AM | | | | | PST | | + + + + + | Temperature | 36.4 C (97.5 F) | 04/17/2018 10:00 AM | | | | | PST | | + + + + + | Respiratory Rate | 18 | 04/17/2018 10:00 AM | | | | | PST | | + + + + + | Oxygen Saturation | 98% | 04/17/2018 10:00 AM | | | | | PST | | + + + + + | Inhaled Oxygen | - | - | | | Concentration | | | | + + + + + | Weight | 99.8 kg (220 lb) | 04/17/2018 10:00 AM | | | | | PST | | + + + + + | Height | 165.1 cm (5' 5") | 04/17/2018 10:00 AM | | | | | PST | | + + + + + | Body Mass Index | 36.61 | 04/17/2018 10:00 AM | | | | | PST | | + + + + + documented in this encounter Patient Instructions Patient Instructions Debbie Gil ARNP - 04/17/2018 10:17 AM PST Sinusitis (Antibiotic Treatment) The sinuses are air-filled spaces within the bones of the face. They connect to the inside of the nose.Sinusitisis an inflammation of the tissue that lines the sinuses. Sinusitis can occur during a cold. It can also happen due to allergies to pollens and other particles in the air. Sinusitis can cause symptoms of sinus congestion and a feeling of fullness. A si nus infection causes fever, headache, and facial pain. There is often green or yellow fluid draining from the nose or into the back of the throat (post-nasal drip). You have been given antibiotics to treat this condition. Home care Take the full course of antibiotics as instructed. Do not stop taking them, even when yo u feel better. Drink plenty of water, hot tea, and other liquids. This may help thin nasal mucus. It al so may help your sinuses drain fluids. Heat may help soothe painful areas of your face. Use a towel soaked in hot water. Or, st and in the shower and direct the warm spray onto your face. Using a vaporizer along with a m enthol rub at night may also help soothe symptoms. Anexpectorantwith guaifenesin may help thin nasal mucus and help your sinuses drain fluids. You can use an ncrh-kez-joaorfgifenzewosnjm,unless a similar medicine was prescribed to you. Nasal sprays work the fastest. Use one that contains phenylephrine or oxymetazoline . First blow your nose gently. Then use the spray. Do not use these medicines more often pearl n directed on the label. If you do, your symptoms may get worse. You may also take pills pearl t contain pseudoephedrine. Don t use products that combine multiple medicines. This is bec ause side effects may be increased. Read labels. You can also ask the pharmacist for help. ( People with high blood pressure should not use decongestants. They can raise blood pressure. ) Snvg-bwa-bbucsngydqbgjtssfkwgtqtf help if allergies contributed to your sinusitis. Do not use nasal rinses or irrigation during an acute sinus infection, unless your healt hcare provider tells you to. Rinsing may spread the infection to other areas in your sinuses . Use acetaminophen or ibuprofen to control pain, unless another pain medicine was prescri bed to you. If you have chronic liver or kidney disease or ever had a stomach ulcer, talk wi th your healthcare provider before using these medicines. (Aspirin should never be taken by anyone under age 18 who is ill with a fever. It may cause severe liver damage.) Don't smoke. This can make symptoms worse. Follow-up care Follow up with your healthcare provider or our staff if you are better in 1 week. When to seek medical advice Call your healthcare provider if any of these occur: Facial pain or headache that gets worse Stiff neck Unusual drowsiness or confusion Swelling of your forehead or eyelids Vision problems, such as blurred or double vision Fever of100.4F (38C)or higher, or as directed by your healthcare provider Seizure Breathing problems Symptoms don't go away in 10 days Prevention Here are steps you can take to help prevent an infection: Keep good hand washing habits. Don t have close contact with people who have sore throats, colds, or other upper resp iratory infections. Don t smoke, and stay away from secondhand smoke. Stay up to date with of your vaccines. Date Last Reviewed: 01/11/201719995971-4812 [employer]. [address] [place] [address], [place] [address]. All righ ts reserved. This information is not intended as a substitute for professional medical care. Always follow your healthcare professional's instructions. Krystina Infection: Thrush Thrush is a fungal infection in the mouth and throat. Thrush does not usually affect health y adults. It is more common in people with a weak immune system. It is also more likely if y ou take antibiotics. Thrush is normally not contagious. Understanding fungus in the mouth and throat Your mouth and throat normally contain millions of tiny organisms. These include bacteria a nd yeasts. Many of these do not cause any problems. In fact, they may help fight disease. Yeasts are a type of fungus. A type of yeast called Krystina normally lives on the membranes of your mouth and throat. Usually, this yeast grows only in small amounts and is harmless. But in some cases, Krystina can grow out of control and cause thrush. Thrush is related to ot her kinds of Krystina infections that can grow all over the body. Thrush refers to an infecti on of only the mouth and throat. What causes thrush? Thrush happens when something lets too much Krystina grow inside your mouth and throat. Cert ain things that change the normal balance of organisms in the mouth can lead to thrush. One example is antibiotic medicine. This medicine may kill some of the normal bacteria in your m outh. Krystina can then grow freely. People on antibiotics have an increased risk for thrush. You have a higher risk for thrush if you: Wear dentures Are getting chemotherapy Are getting radiation therapy Have diabetes Have a transplanted organ Use corticosteroids, including inhaled corticosteroids for lung disease Have a weak immune system, such as from AIDS Are an older adult Symptoms of thrush Symptoms of thrush can include: A dry, cottony feeling in your mouth Cracking at the corners of the mouth Loss of taste Pain while eating or swallowing White patches on the tongue and around the sides of the mouth Diagnosing thrush Your healthcare provider will ask about your medical history and your symptoms. He or she w ill look closely at your mouth and throat. White or red patches will be scraped with a tongu e depressor. The sample will be sent to a lab to test. This test can usually confirm thrush. If you have thrush, you may also have esophageal candidiasis. This is common in people who have HIV or a weak immune system. Your healthcare provider may check for this condition with an upper endoscopy. This is a procedure to look at the esophagus. A tissue sample may be ta dino to test. Treatment for thrush Thrush is usually treated with antifungal medicine. The medicine is put directly in your mo uth and throat. You may be given a swish and swallow medicine or an antifungal lozenge . In some cases, you may need an antifungal pill. This can remove Krystina throughout your bod y. Or you may need medicine through an intravenous line ( IV). These treatments depend on ho w severe your infection is, and what other health conditions you have. If you are at high risk for thrush, you may need to keep taking oral antifungal medicine. T his is to help prevent thrush in the future. What happens if you don t get treated for thrush? If untreated, the Krystina may spread throughout your body. They may even enter your bloodst ream. This can cause serious problems, such as organ failure and even . Bloodstream inf ection may need to be treated with high doses of antifungal medicine through an IV. Systemic infection is much more likely in people who are very ill. It is also more common i n those who have serious problems with their immune system. Additional risk factors for syst emic infection in very ill people include: Central venous lines IV nutrition Use of broad-spectrum antibiotics Kidney failure Recent surgery Preventing thrush You may be able to help prevent some cases of thrush. Make sure to: Practice good oral hygiene. Try using a chlorhexidine mouthwash. Clean your dentures regularly as instructed. Make sure they fit you correctly. After using a corticosteroid inhaler, rinse out your mouth with water or mouthwash. Do not use broad-spectrum antibiotics, if possible. Get treated for health problems that increase your risk for thrush, such as diabetes. When to call the healthcare provider Call your healthcare provider right away if you have any of these: Cottony feeling in your mouth Loss of taste Pain while eating or swallowing White patches or plaques on your tongue or inside your mouth Date Last Reviewed: 07/11/201619991393-3294 [employer] [address] [place] [address], [place] [id number]. All righ ts reserved. This information is not intended as a substitute for professional medical care. Always follow your healthcare professional's instructions. Dental Abscess An abscess is a sac of pus. A dental abscess forms when a tooth or the tissue around it bec omes infected with bacteria. The bacteria can enter through a cavity or a crack in a tooth. It can also infect the gum tissue or bone around a tooth. An untreated abscess can cause the loss of the tooth. It can even spread to other parts of the body and become life-threatenin g. Symptoms of a dental abscess Signs of a dental abscess include: Toothache, often severe Tooth pain with hot, cold, or pressure Pain in the gums, cheek, or jaw Bad breath or bitter taste in the mouth Trouble swallowing or opening the mouth Fever Swollen or enlarged glands in the neck Diagnosing a dental abscess An abscess is diagnosed by looking at your teeth and gums. You will be told if any tests ar e needed, such as dental X-rays. Treating a dental abscess Treatments for a dental abscess may include the following: Antibiotic medicines. These treat the underlying infection. Pain relievers. These help you feel more comfortable. Your healthcare provider may presc ribe a medicine for you. Or you may use ntjv-pvm-elcpnwx pain relievers, such as acetaminoph en or ibuprofen. Warm saltwater rinses. These can soothe discomfort and help clear away pus. Root canal surgery. This may be done if needed to save the tooth. With a root canal, t he infected part of the tooth is removed. A special substance is then used to fill the empty space in the tooth. Draining the abscess. This may be doneif needed. Incisions are made to allow the infecte d material to drain from the tooth. Removing the tooth. This is done in cases of severe infection that can t be treated an other way. You may need to be admitted to a hospital if the infection is severe, has spread, or doesn t respond to treatment. When to call the dentist Call your dentist right away if you have any of the following: Fever of 100.4F(38C)or higher Increased pain, redness, drainage, or swelling in the treated area Swelling of the face or jawbone Pain that can't be controlled with medicines Preventing dental abscess To prevent another abscess in the future, keep your teeth clean and healthy. Mobile twice a day and floss at least once daily. See your dentist for regular tooth cleanings. And stay aw ay from sugary foods and drinks that can lead to tooth decay. Date Last Reviewed: 08/11/201619997746-7594 [employer] [address] [place] [address], [place] [address]. All righ ts reserved. This information is not intended as a substitute for professional medical care. Always follow your healthcare professional's instructions. documented in this encounter Progress Notes Debbie Gil ARNP - 04/17/2018 10:20 AM PSTFormatting of this note might be differ ent from the original. Subjective: Angel Shafer Jr. is a 38 y.o. male who presents to the clinic with a complaint of J aw Pain (x 2 days, left side) Sinusitis This is a new problem. Episode onset: over 1 month ago. Progression since onset: jaw pain s tarted 2 days ago. Maximum temperature: low grade intermittently for almost 2 weeks. His elaine n is at a severity of 8/10. Associated symptoms include chills, coughing (dry NPC), diaphore sis, ear pain, headaches, a hoarse voice, sinus pressure and sneezing (improved). Pertinent negatives include no congestion, neck pain, shortness of breath, sore throat or swollen glan ds. (Left jaw pain) Treatments tried: Augmentin. The treatment provided no relief. Patient was seen on 04/08/18 and treated for maxillary sinusitis with Augmentin 500-125 twic e daily for 10 days. He is on his last day of antibiotics and does not feel this is improvin g. He woke with his left eye matted shut 2 days ago and now has a lump and pain on his left lower jaw area. He went to his dentist yesterday and was told it was not a dental problem. No Known Allergies Medications: Patient Reported Taking Dosage amoxicillin-clavulanate (AUGMENTIN) 500-125 mg per tablet (Taking/Discontinued) Take 1 ta blet by mouth 2 times daily for 10 days. Number of times this order has been changed since signin Order [place]it [place] ibuprofen (ADVIL,MOTRIN) 600 MG tablet (Taking) Take 600 mg by mouth 3 times daily. Past Medical History He has a past medical history of Back pain, thoracic; Carpal tunnel syndrome on left; Disc displacement, thoracic; Numbness of left hand; and Thoracic spondylosis without myelopathy. Past Surgical History He has a past surgical history that includes Appendectomy and Carpal tunnel release (Right) . Social History Substance Use Topics Smoking status: Current Every Day Smoker Packs/day: 0.50 Years: 15.00 Types: Cigarettes Smokeless tobacco: Never Used Alcohol use Yes Comment: Rare Review of Systems Constitutional: Positive for chills and diaphoresis. HENT: Positive for ear pain, hoarse voice, sinus pressure and sneezing (improved). Negative for congestion and sore throat. Respiratory: Positive for cough (dry NPC). Negative for shortness of breath. Musculoskeletal: Negative for neck pain. Neurological: Positive for headaches. See HPI Objective: Vitals: 04/17/18 1000 BP: 132/78 Pulse: 118 Resp: 18 Temp: 36.4 C (97.5 F) TempSrc: Temporal SpO2: 98% Weight: 99.8 kg (220 lb) Height: 1.651 m (5' 5") Physical Exam Constitutional: He is oriented to person, place, and time. He appears well-developed and we ll-nourished. He appears ill. No distress. HENT: Head: Normocephalic and atraumatic. Right Ear: External ear and ear canal normal. Tympanic membrane is not erythematous and not bulging. A middle ear effusion (mucoid) is present. Left Ear: Tympanic membrane, external ear and ear canal normal. Tympanic membrane is not er ythematous and not bulging. No middle ear effusion. Nose: Mucosal edema, rhinorrhea and sinus tenderness (maxillary and paranasal L>R) present. Mouth/Throat: Uvula is midline and mucous membranes are normal. Oral lesions present. Denta l abscesses present. Posterior oropharyngeal edema and posterior oropharyngeal erythema pres ent. No oropharyngeal exudate or tonsillar abscesses. Significant erythema and edema of turbinates with purulent drainage visible in paranasal si nuses and purulent thick green postnasal drainage. Buccal mucosa with many white patches with surrounding erythema, erythema and thick white/y ellow coating on tongue. Currently not wearing lower denture. Left lower jaw with palpable mass over the lateral mandible adjacent and inferior to the to premolar area. Palpable from inside the buccal mucosa as well, no fluctuance noted. No curr ent drainage. Eyes: Pupils are equal, round, and reactive to light. Right eye exhibits no discharge. Left eye exhibits no discharge. Right conjunctiva is injected (mild). Left conjunctiva is inject ed (mild). Undereye dark circles. Neck: Normal range of motion. Neck supple. No tracheal deviation present. Cardiovascular: Regular rhythm, S1 normal, S2 normal and normal heart sounds. Tachycardia present. Exam reveals no gallop and no friction rub. No murmur heard. Pulmonary/Chest: Effort normal and breath sounds normal. No stridor. No respiratory distres s. He has no decreased breath sounds. He has no wheezes. He has no rhonchi. He has no rales. He exhibits no tenderness. Lymphadenopathy: Head (right side): Submandibular adenopathy present. Head (left side): Submandibular adenopathy present. He has cervical adenopathy. Neurological: He is alert and oriented to person, place, and time. Skin: Skin is warm and dry. No rash noted. Psychiatric: He has a normal mood and affect. His behavior is normal. Nursing note and vitals reviewed. Assessment: 1. Acute bacterial sinusitis cetirizine (ZYRTEC) 10 mg tablet clindamycin (CLEOCIN) 300 MG capsule DISCONTINUED: cefuroxime (CEFTIN) 250 mg tablet 2. Failure of outpatient treatment 3. Acute abscess of jaw clindamycin (CLEOCIN) 300 MG capsule DISCONTINUED: cefuroxime (CEFTIN) 250 mg tablet 4. Oral thrush nystatin (MYCOSTATIN) 100,000 units/mL suspension fluconazole (DIFLUCAN) 150 mg tablet Plan: 1. Acute bacterial sinusitis - cetirizine (ZYRTEC) 10 mg tablet; Take 1 tablet by mouth Daily for 14 days. Then as neede d for congestion/runny nose Dispense: 90 tablet; Refill: 0 - clindamycin (CLEOCIN) 300 MG capsule; Take 1 capsule by mouth 4 times daily for 14 days. Dispense: 56 capsule; Refill: 0 - Take antibiotics as prescribed, complete entire course. May take with food if GI upset oc curs. - Taking probiotics or eating yogurt may help prevent yeast overgrowth or diarrhea. - Ibuprofen as needed with food for fever/pain, may alternate with acetaminophen for better coverage. - Patient refuses to use nasal sprays. - Antihistamine daily as needed for mucous production or allergy symptoms. - Saline sprays or rinses as needed/tolerated. - Cool mist vaporizer in room or warm steamy showers to help loosen mucous and relieve jose estion. - Rest, increase fluid intake, good hand hygiene. Cover coughs and sneezes. 2. Failure of outpatient treatment - With treatment failure with Augmentin and clinical presentation of jaw/dental abscess, wi ll change antibiotic to clindamycin. - Stop Augmentin, start clindamycin. 3. Acute abscess of jaw - clindamycin (CLEOCIN) 300 MG capsule; Take 1 capsule by mouth 4 times daily for 14 days. Dispense: 56 capsule; Refill: 0 - Follow up with Dentist within 3 days, especially if swelling continues to worsen. 4. Oral thrush - nystatin (MYCOSTATIN) 100,000 units/mL suspension; Swish and spit 5 ml four times daily u p to 48 hours after symptoms resolve Indications: Candidiasis Fungal Infection of the Oroph arynx Dispense: 180 mL; Refill: 1 - fluconazole (DIFLUCAN) 150 mg tablet; Take 1 tablet today and 1 tablet on last day of ant ibiotics. Dispense: 2 tablet; Refill: 0 - Due to severity of symptoms that are interfering with dentures, will treat aggressively t o encourage oral intake and reduce discomfort. - Diflucan today and on last day of antibiotics. - Nystatin as discussed, adjunct to diflucan to help control thrush while on new course of antibiotics. See AVS for patient instructions. Diagnosis and plan including medications and side effects were discussed with the patient a nd information handout was given. Patient voices understanding of the plan and all questions were answered. Follow up with Primary Care Provider or return to clinic if not improving in 3-5 days or if symptoms worsen. documented in this encounter Plan of Treatment Not on filedocumented as of this encounter Visit Diagnoses + + | Diagnosis | + + | Acute bacterial sinusitis - Primary Acute sinusitis, unspecified | + + | Failure of outpatient treatment | + + | Acute abscess of jaw Inflammatory conditions of jaw | + + | Oral thrush Candidiasis of mouth | + + documented in this encounter
--- OUTSIDE RECORDS SUMMARY | ~2019-12-25 | XMS | Encounter Summary ---
Demographics + + + | Address | [address] | | | [place] [address] | + + + | Home Phone | | + + + | Preferred Language | Unknown | + + + | Marital Status | | + + + | Religion Affiliation | Unknown | + + + | Race | White | + + + | Ethnic Group | Not or | + + + Author + + + | Author | [facility] | | | and [place] | [...] [place] | | | | | [address] | | + + + + + | Daysi Shafer | ECON | [address] | | | | | [place] [address] | | + + + + + Care Team Providers + +------+ + | Care Websphere Architect Name | Role | Phone | + +------+ + | Unknown, Doctor | PCP | | + +------+ + Reason for Visit +--------+ + | Reason | Comments | +--------+ + | Cough | | +--------+ + Encounter Details +--------+ + + + + | Date | Type | Department | Care Team | Description | +--------+ + + + + | 04/28/ | Emergency | [facility] | Branden Jennings, | Acute bronchitis | | 2019 | | [facility] | [place] [address] | with bronchospasm | | | | CENTER [address] | [place] | (Primary Dx); | | | | [place] | [phone] | Elevated blood | | | | [phone] | | pressure reading | | | | [phone] | | | +--------+ + + + [...] + + + | Blood Pressure | 125/75 | 04/28/2019 12:59 PM | | | | | PST | | + + + + + | Pulse | 87 | 04/28/2019 12:59 PM | | | | | PST | | + + + + + | Temperature | 37.3 C (99.2 F) | 04/28/2019 10:01 AM | | | | | PST | | + + + + + | Respiratory Rate | 14 | 04/28/2019 12:59 PM | | | | | PST | | + + + + + | Oxygen Saturation | 94% | 04/28/2019 12:59 PM | | | | | PST | | + + + + + | Inhaled Oxygen | - | - | | | Concentration | | | | + + + + + | Weight | - | - | | + + + + + | Height | - | - | | + + + + + | Body Mass Index | - | - | | + + + + + documented in this encounter Discharge Instructions AttachmentsThe following attachments cannot be sent through Care Everywhere.Acute Bronchiti s, What Is (Burkinan)Bronchitis, Antibiotic Treatment (Adult) (Burkinan)documented in this enc ounter Medications at Time of Discharge + + + +---------+ + + | Medication | Sig | Dispensed | Refills | Start | End Date | | | | | | Date | | + + + +---------+ + + | clotrimazole | Slowly dissolve one | 70 | 0 | 02//20 | | | (CLOTRIMAZOLE) 10 mg | lozenge by mouth 5 | Bro | | 19 | | | bro | times a day | | | | | + + + +---------+ + + | | Take 10 mLs by mouth | 237 mL | 0 | 02/16/20 | | | dextromethorphan-gua | every 6 hours as | | | 20 | | | iFENesin | needed for Cough. | | | | | | (ROBITUSSIN-DM) | | | | | | | 10-100 mg/5 mL | | | | | | | liquid | | | | | | + + + +---------+ + + | fluconazole | Take 1 tablet today | 2 | 0 | 04/17/19 | | | (DIFLUCAN) 150 mg | and 1 tablet on last | tablet | | 19 | | | tabletIndications: | day of antibiotics. | | | | | | Oral thrush | | | | | | + + + +---------+ + + | ibuprofen | Take 600 mg by mouth | | 0 | 11/24/19 | | | (ADVIL,MOTRIN) 600 | 3 times daily. | | | 12 | | | MG tablet | | | | | | + + + +---------+ + + | nystatin | Swish and spit 5 ml | 180 mL | 1 | 04/17/19 | | | (MYCOSTATIN) 100,000 | four times daily up | | | 19 | | | units/mL | to 48 hours after | | | | | | suspensionIndication | symptoms resolve | | | | | | s: Oropharyngeal | Indications: | | | | | | Candidiasis | Candidiasis Fungal | | | | | | | Infection of the | | | | | | | Oropharynx | | | | | + + + +---------+ + + | pseudoePHEDrine | Take 1 tablet by | 24 | 0 | 04/28/19 | | | (SUDAFED CONGESTION) | mouth every 6 hours | tablet | | 20 | | | 30 mg tablet | as needed for | | | | | | | Congestion. | | | | | + + + +---------+ + + | doxycycline | Take 1 capsule by | 20 | 0 | 04/28/19 | | | (VIBRAMYCIN) 100 mg | mouth 2 times daily | capsule | | 20 | 0 | | capsule | for 10 days. | | | | | + + + +---------+ + + documented as of this encounter ED Notes Branden Jennings MD - 04/28/2019 10:05 AM PSTFormatting of this note might be different f rom the original. [facility] Angel Shafer Jr. EMERGENCY DEPARTMENT ENCOUNTER NOTE [address], [place] [address] PCP:Doctor Unknown [phone] DIAGNOSIS: ICD-10-CM ICD-9-CM 1. Acute bronchitis with bronchospasm J20.9 466.0 2. Elevated blood pressure reading R03.0 796.2 CHIEF COMPLAINT: Chief Complaint Patient presents with Cough ED Room: ED11/ED11 04/28/2019 Triage Note: Pt reports productive cough with yellow mucous, chills, fevers, and some shortness of breat h since Monday but worsening yesterday. He states he returned from a [employer] cruise that visited [place], [facility], and [place] on the . 1001 HPI Angel Shafer is a 39 y.o. male who presents to the Emergency Department presents to the E D with 2 days of symptoms. He most recently returned from his travels on April 20. His s ymptoms started on the . He was recently on a cruise as documented above that states he went to the [place] that did visit [place], and the [facility], and [place]. He retur taryn to the [facility] on 20 April. He is not any immunosuppressive therapy. He has beyer d no recent falls or injuries. He does carry history of having tobacco abuse. He is not on any immunosuppressive therapy. He reports his symptoms are predominantly myalgias arthralgias a productive cough with yel low mucus, some chills, subjective fevers, and just feeling a little tight in his chest due to coughing. He has had no rash. He has had no difficulty moving his bladder or bowels. H e said no discomfort with urination. Does not endorse individual with positive during his travels with individuals from [facility] bu t uncertain. No travel to [employer] in the last 14 days. His traveled with him and is asymp tomatic. Travelled to [place] to board ship April 13. Ship name: [employer] with ports of call in the preceding noted countries with return of the cruise line tra emil back to [place] to [facility] and return [place] on April 20. PAST MEDICAL & SURGICAL HISTORY The patient has a past medical history of Back pain, thoracic, Carpal tunnel syndrome on le ft, Disc displacement, thoracic, Numbness of left hand, and Thoracic spondylosis without mye lopathy. The patient has a past surgical history that includes Appendectomy and Carpal tunn el release (Right). 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 (Patient not taking: Reported on 07/29/2018) ibuprofen (ADVIL,MOTRIN) 600 MG tablet Take 600 mg by mouth 3 times daily. 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 The patient reports that he has been smoking cigarettes. He has a 7.50 pack-year smoking history. He has never used smokeless tobacco. He reports current alcohol use. He reports that he does not use drugs. REVIEW OF SYSTEMS As in history of present illness. A 10 system review was otherwise negative. PHYSICAL EXAM VITAL SIGNS: (first vital signs):Temp: 37.3 C (99.2 F) Pulse: 117 Resp: 16 SpO2: 98 % B P: (!) 149/94 There is no height or weight on file to calculate BMI. Vitals: 04/28/19 1028 04/28/19 1044 04/28/19 1138 04/28/19 1259 BP: 145/83 (!) 146/93 125/75 Pulse: 107 104 95 87 Resp: 16 14 Temp: TempSrc: SpO2: 97% 94% 96% 94% General: Alert, no active distress and not requiring any emergent interventions Eyes: Normal inspection, pupils equal and round, non-icteric sclera ENT: Ears normal Nose normal Pharynx normal Neck: Normal inspection Supple Full ROM Cardiovascular: Normal rate and rhythm, no extra sounds No murmurs rubs or gallops Focal PMI Respiratory: No respiratory distress or wheezing Normal excursion No retractions Abdomen: Soft, non-tender, non-distended Normal active bowel sounds Back: Normal inspection Without tenderness or deformity Skin: Color normal Warm and dry Extremities: JACKSON with equal pulses in the upper and lower extremities bilaterally Neuro: No gross motor/sensory deficit GCS 15 No cerebellar deficits Alert and oriented to person, place, time and situation. EKG LABS Results for orders placed or performed during the hospital encounter of 04/28/19 Influenza A and B RNA, NAAT Result Value Ref Range Influenza A PCR Negative Negative, Test not performed Influenza B PCR Negative Negative, Test not performed IMAGING STUIDES (X-Rays interpreted by ED Physician) No results found for this or any previous visit (from the past 360 hour(s)). ED COURSE & MEDICAL DECISION MAKING Pertinent Labs & Imaging studies were reviewed along with EMS notes and detention record s if applicable. (See chart for details) Medications and Allergy list reviewed. Nurses note and old records were reviewed 16:20 The patient was seen and examined, I considered viral etiology, laryngotracheobronchi tis, croup, bacterial etiology, bacterial tracheobronchitis, lung abscess, pertussis, mycopl asmal etiology, mycoplasmal bronchitis, chlamydial etiology and chlamydial bronchitis as a p ossible cause of cough in this patient. I have considered pneumothorax, PE, large tumor, or mass. I believe that based on the patients clinical constellation that he is low probabilit y for PE. This is a partial list of diagnoses considered. No directed travel to [place] but u [facility] as far as other occupants and other riders on the cruise ship will discuss with our i nfectious disease staff for guidance on how to pursue a potential individual with a low risk probability of Covid-19. Medical Decision Making as of Apr 28 1619 Sun Apr 28, 2019 1227 Does not feel like marked improvement with duoneb. I personally reviewed the lab results and they have been posted to the chart. Pertinent po sitive and negative findings have been addressed appropriately and I have discussed any sign ificant abnormali Reviewed the digital chest x-ray 2 view. I did not identify any obvious pneumonia, large tumor, large masses, no evidence to suggest pneumothorax. No acute cardiop ulmonary source identified. Awaiting formal interpretation by the radiologist. The patient was informed that a formal interpretation would be available the next 24 hours. The patien t would be contacted if I failed to identify a bacterial infection. Its seems like his vital signs improved with the Duoneb. Although last vital signs improved and my last witnessed oxygen saturation in the room was 98% on room air. I have discussed my clinical impression and treatment plan with the pt. We have specificall y discussed the signs and symptoms that would constitute the need for an immediate return to the ED, the importance of continued outpatient f/u and the importance of compliance with th e d/c instructions. I have answered any questions that the pt has to the best of my ability. Based upon the pt s history, physical exam, ED course, and diagnostic studies, I feel pearl t there is no current emergent medical condition that warrants admission, transfer, or furth er ED treatment at this time. Last Set of Vital Signs: Temp: 37.3 C (99.2 F) Pulse: 87 Resp: 14 SpO2: 94 % BP: 125/75 Medications albuterol-ipratropium 2.5-0.5 mg/3 mL nebulizer solution 3 mL (3 mLs Nebulization Given 04/13 08/30 1136) Vitals: 04/28/19 1028 04/28/19 1044 04/28/19 1138 04/28/19 1259 BP: 145/83 (!) 146/93 125/75 Pulse: 107 104 95 87 Resp: 16 14 Temp: TempSrc: SpO2: 97% 94% 96% 94% FINAL IMPRESSION ICD-10-CM ICD-9-CM 1. Acute bronchitis with bronchospasm J20.9 466.0 2. Elevated blood pressure reading R03.0 796.2 Follow-up Information [facility]. Specialty: Emergency Medicine Why: As needed Contact information: [address] [place] [phone] Your primary care provider in 10-14 days for your ED visit. Discharge Medication List as of 04/28/2019 1:03 PM START taking these medications Details dextromethorphan-guaiFENesin (ROBITUSSIN-DM) 10-100 mg/5 mL liquid Take 10 mLs by mouth kendra ry 6 hours as needed for Cough.Disp-237 mL, R-0, Print doxycycline (VIBRAMYCIN) 100 mg capsule Take 1 capsule by mouth 2 times daily for 10 days.D isp-20 capsule, R-0, Print pseudoePHEDrine (SUDAFED CONGESTION) 30 mg tablet Take 1 tablet by mouth every 6 hours as n eeded for Congestion.Disp-24 tablet, R-0, Print Branden Jennings. This document has been prepared with a voice recognition system. The possibility of "sound alike" bisque kiln drawer errors, addition and/or deletions may occur. If there is any question p kendell contact the author of the document. Branden Jennings MD 04/28/19 1620 Radha Noe RN - 04/28/2019 9:59 AM PSTPt reports productive cough with yellow mucous, chills, feve rs, and some shortness of breath since Monday but worsening yesterday. He states he returne d from a [employer] cruise that visited [place], [facility], and [place] on the . Elec tronically signed by Radha Cyr RN at 04/28/2019 10:01 AM PSTdocumented in this e ncounter Plan of Treatment Not on filedocumented as of this encounter Procedures + +--------+ + + + | Procedure Name | Priori | Date/Time | Associated Diagnosis | Comments | | | ty | | | | + +--------+ + + + | INFLUENZA A AND B | STAT | 04/28/2019 | | Results for this | | RNA, NAAT | | 10:29 AM | | procedure are in the | | | | PST | | results section. | + +--------+ + + + | RESPIRATORY VIRUS | ANTHONY | 04/28/2019 | | Results for this | | ANTIGENS PROFILE | | 10:29 AM | | procedure are in the | | | | PST | | results section. | + +--------+ + + + | XR CHEST PA AND | STAT | 04/28/2019 | | Results for this | | LATERAL | | 10:27 AM | | procedure are in the | | | | PST | | results section. | + +--------+ + + + documented in this encounter Results Respiratory pathogen panel, NAAT (04/28/2019 10:29 AM PST) + + + + + + | Component | Value | Ref Range | Performed | Pathologist | | | | | At | Signature | + + + + + + | Parainfluen | Not Detected | Not Detected | [facility] | | | za [address] | | | [facility] | | | | | | [facility] | | | | | | [facility] - | | | | | | LABORATORY | | + + + + + + | Adenovirus | Not Detected | Not Detected | [facility] | | | | | | [facility] | | | | | | [facility] | | | | | | [facility] - | | | | | | LABORATORY | | + + + + + + | Human | Not Detected | Not Detected | [facility] | | | Metapneumov | | | [facility] | | | irus | | | [facility]ICAL | | | | | | [facility] - | | | | | | LABORATORY | | + + + + + + | Rhinovirus/ | Detected (A) | Not Detected | [facility] | | | Enterovirus | | | [facility] | | | | | | [facility] | | | | | | [facility] - | | | | | | LABORATORY | | + + + + + + | Parainfluen | Not Detected | Not Detected | [facility] | | | za 3 | | | [facility] | | | | | | [facility] | | | | | | [facility] - | | | | | | LABORATORY | | + + + + + + + + | Specimen | + + | Tissue - Entire | | nasopharynx (body | | structure) | + + + + + + + | Performing | Address | City/State/Zipcode | Phone Number | | Organization | | | | + + + + + | [facility] | [address] | [place] | [phone] | | [facility] | | [address] | | | - LABORATORY | | | | + + + + + Influenza A and B RNA, NAAT (04/28/2019 10:29 AM PST) + + + + + + | Component | Value | Ref Range | Performed | Pathologist | | | | | At | Signature | + + + + + + | Influenza A | Negative | Negative, Test | [facility] | | | PCR | | not performed | [facility] | | | | | | MEDICAL | | | | | | CENTER - | | | | | | LABORATORY | | + + + + + + | Influenza B | Negative | Negative, Test | [facility] | | | PCR | | not performed | [facility] | | | | | | [facility] | | | | | | [facility] - | | | | | | LABORATORY | | + + + + + + + + | Specimen | + + | Tissue - Entire | | nasopharynx (body | | structure) | + + + + + + + | Performing | Address | City/State/Zipcode | Phone Number | | Organization | | | | + + + + + | [facility] | [address] | [place] | [phone] | | [facility] | | [address] | | | - LABORATORY | | | | + + + + + XR Chest PA and Lateral (04/28/2019 10:27 AM PST) + + | Specimen | + + | | + + + + + | Impressions | Performed At | + + + | No acute intrathoracic abnormality identified. Dictated and | [facility] | | Signed by: Steven Peterson MD Electronically signed: 04/28/2019 5:49 | | | PM | | + + + + + + | Narrative | Performed At | + + + | XR CHEST PA AND LATERAL 04/28/2019 10:24 AM HISTORY: COUGH. | [facility] | | COMPARISON: 03/28/2015 Findings: The bilateral lungs are clear | | | with no evidence for pleural effusion or pneumothorax. Heart size is | | | within normal limits. Pulmonary vasculature is within normal limits. | | | Aorta is normal. Mediastinum is unremarkable. No acute osseous or | | | soft tissue abnormality identified. | | + + + + + | Procedure Note | + + | Kuldeep, Rad Results In - 04/28/2019 5:52 PM PST XR CHEST PA AND LATERAL 04/28/2019 10:24 | | AMHISTORY: COUGH.COMPARISON: 03/28/2015Findings:The bilateral lungs are clear with no | | evidence for pleural effusion orpneumothorax. Heart size is within normal limits. | | Pulmonary vasculature iswithin normal limits. Aorta is normal. Mediastinum is | | unremarkable. No acuteosseous or soft tissue abnormality identified. IMPRESSION: No | | acute intrathoracic abnormality identified.Dictated and Signed by: Steven Peterson MD | | Electronically signed: 04/28/2019 5:49 PM | |The bilateral lungs are clear with no evidence for pleural effusion or | |pneumothorax. Heart size is within normal limits. Pulmonary vasculature is | |within normal limits. Aorta is normal. Mediastinum is unremarkable. No acute | |osseous or soft tissue abnormality identified. | | | |IMPRESSION: | |No acute intrathoracic abnormality identified. | | | |Dictated and Signed by: Steven Peterson MD | | Electronically signed: 04/28/2019 5:49 PM | + + + +---------+ + + | Performing | Address | City/State/Zipcode | Phone Number | | Organization | | | | + +---------+ + + | [facility] | | | | + +---------+ + + documented in this encounter Visit Diagnoses + + | Diagnosis | + + | Acute bronchitis with bronchospasm - Primary Acute bronchitis | + + | Elevated blood pressure reading Elevated blood pressure reading without diagnosis of | | hypertension | + + documented in this encounter Administered Medications + +--------+ +-------+------+------+ | Medication Order | MAR | Action | Dose | Rate | Site | | | Action | Date | | | | + +--------+ +-------+------+------+ | albuterol-ipratropium 2.5-0.5 | Given | 04/28/19 | 3 mLs | | | | mg/3 mL nebulizer solution 3 mL | | 20 11:36 | | | | | 3 mL, Nebulization, RT Once, Sun | | AM PST | | | | | 04/28/19 at 1130, For 1 dose | | | | | | + +--------+ +-------+------+------+ +---+---+ | | | +---+---+ documented in this encounter Additional Health Concerns + + + + + | Infection | Onset Date | Last Indicated | Resolved Time | + + + + + | Rule out Respiratory | 04/28/2019 | 04/28/2019 | 04/28/2019 11:02 AM | | Infection | | | PST | + + + + + documented as of this encounter
--- OUTSIDE RECORDS SUMMARY | ~2019-12-25 | XMS | Encounter Summary ---
Demographics + + + | Address | [address] | | | [place] [address] | + + + | Home Phone | | + + + | Preferred Language | Unknown | + + + | Marital Status | | + + + | Christian Affiliation | Unknown | + + + | Race | White | + + + | Ethnic Group | Not or | + + + Author + + + | Author | [facility] | | | and [place] | + + + | Organization | [facility] | | | and [place] | + + + | Address | Unknown | + + + | Phone | Unavailable | + + + Support + + + + + | Name | Relationship | Address | Phone | + + + + + | Lucrecia Zabala | ECON | [place] | | | | | [address] | | + + + + + | Daysi Lira | ECON | [address] | | | | | [place] [address] | | + + + + + Care Team Providers + +------+ + | Care Asset Protection Officer Name | Role | Phone | + +------+ + | Lydia Simpson PA-C | PCP | | + +------+ + Encounter Details +--------+ + + + + | Date | Type | Department | Care Team | Description | +--------+ + + + + | 04/13/ | Hospital | [facility] | Eric Griffin, | | | 2012 | Encounter | MED CTR EMERGENCY | MD [address] | | | | | CENTER [address] | [facility] [place] | | | | | [place] | [place] [address] | | | | | [address] | [phone] | | | | | [phone] | | | +--------+ + + + [...] + + + +---------+ + + | cyclobenzaprine | Take 10 mg by mouth | | 0 | 11/24/19 | | | (FLEXERIL) 10 mg | nightly as needed. | | | 12 | 3 | | tablet | | | | [...] + + +---------+ + + | | 1-2 tablets daily as | | 0 | 11/24/19 | | | HYDROcodone-acetamin | needed | | | 12 | 3 | | ophen (VICODIN) | | | | | | | 5-500 mg per tablet | | | | | | + + + +---------+ + + | methocarbamol | one tablet every | | 0 | 11/24/19 | | | (ROBAXIN) 500 mg | 8-12 hours as needed | | | 12 | 3 | | tablet | | | | [...] documented as of this encounter ED Notes Eric Griffin MD - 04/13/2012 11:09 [place] [address] Patient Name: ANURADHA LIRA JR Provider: Unit #: [id number] Location: : 1980 DATE: 04/13/2012 IDENTIFICATION: A 32-year-old male. CHIEF COMPLAINT: Sore throat. HISTORY OF PRESENT ILLNESS: This patient presented to the emergency department for evaluat ion. He has a white spot on the right tonsil and he is having some discomfort as well as so me pain on the side of his neck on that side at one spot where he feels a lump. No particul ar fevers, no recent cold symptoms , and he presents to the ER at this time for evaluation. PAST MEDICAL HISTORY: He has had an appendectomy. He has some chronic back pain. MEDICATIONS 1. Omeprazole. 2. Tramadol. 3. Chantix. ALLERGIES: NONE REPORTED. SOCIAL HISTORY: He is giving his own history. He is a smoker. REVIEW OF SYSTEMS HEENT: He has throat pain with a white spot on his tonsil. All other systems reviewed and found negative. PHYSICAL EXAMINATION VITAL SIGNS: Blood pressure 137/64, pulse 86, respirations 16, temperature 98.2, saturatio n 96% on room air. GENERAL: This is a well-nourished 32-year-old male. HEENT: No trauma. Pupils are equal. Conjunctivae pink. Mucous membranes are moist. Right t onsil is tender. There is a white spot on the right tonsil. The uvula is normal. Left tonsi l is normal. No sublingual swelling. NECK: Supple. There is a tender tonsillar lymph node on the right. HEART: Regular rate and rhythm. LUNGS: Clear to auscultation. CHEST: Nontender. ABDOMEN: Soft, nontender, nondistended. EXTREMITIES: Warm and well perfused without edema. Good range of motion. No joint swelling or deformity. NEUROLOGIC: He is alert, interactive. Good muscle tone and strength. EMERGENCY DEPARTMENT COURSE: The patient was seen and examined shortly after arriving in [facility] emergency department. History and physical obtained. Vital signs were noted. He does hav e tonsillar inflammation with exudate on the right tonsil with a prominent tonsillar lymph node on the right that is tender. Outpatient treatment is indicated at this time. He will b e discharged. IMPRESSION EXUDATIVE TONSILLITIS, RIGHT SIDE. PLAN: The patient will be discharged home on Pen VK for 10 days. Tylenol and ibuprofen for pain. Rest , stay well hydrated, and follow up with his primary care provider. DICTATED BY: Eric Griffin MD Emergency Medicine JOB #: [id number] EXT JOB #:[id number] <<Signature on File>> Eric Griffin MD 0421 < documented in this encounter Plan of Treatment Not on filedocumented as of this encounter Visit Diagnoses Not on filedocumented in this encounter"
--- OUTSIDE RECORDS SUMMARY | ~2019-12-25 | XMS | Encounter Summary ---
Demographics + + + | Address | [address] | | | [place] [address] | + + + | Home Phone | | + + + | Preferred Language | Unknown | + + + | Marital Status | | + + + | Pentecostalism Affiliation | Unknown | + + + | Race | White | + + + | Ethnic Group | Not or | + + + Author + + + | Author | [facility] | | | and [place] | + + + | Organization | [facility] | | | and [place] | + + + | Address | Unknown | + + + | Phone | Unavailable | + + + Support + + + + + | Name | Relationship | Address | Phone | + + + + + | Lucrecia Zabala | ECON | [place] | | | | | [address] | | + + + + + | Daysi Shafer | ECON | [address] | | | | | [place] [address] | | + + + + + Care Team Providers + +------+ + | Care Sheet Metal Duct Worker Supervisor Name | Role | Phone | + +------+ + PCP | Unavailable | + +------+ + Encounter Details +--------+ + + + + | Date | Type | Department | Care Team | Description | +--------+ + + + + | 11/28/ | Hospital | [facility] | | | | 2006 - | Encounter | MED CTR EMERGENCY | | | | | | CENTER [address] | | | | 11/29/ | | [place] | | | | 2006 | | [address] | | | | | | [phone] | | | +--------+ + + + [...]
--- OUTSIDE RECORDS SUMMARY | ~2019-12-25 | XMS | Encounter Summary ---
Demographics + + + | Address | [address] | | | [place] [address] | + + + | Home Phone | | + + + | Preferred Language | Unknown | + + + | Marital Status | | + + + | Scientology Affiliation | Unknown | + + + | Race | White | + + + | Ethnic Group | Not or | + + + Author + + + | Author | [facility] | | | and [place] | + + + | Organization | [facility] | | | and [place] | + + + | Address | Unknown | + + + | Phone | Unavailable | + + + Support + + + + + | Name | Relationship | Address | Phone | + + + + + | Lucrecia Zabala | ECON | [place] | | | | | [address] | | + + + + + | Daysi Shafer | ECON | [address] | | | | | [place] [address] | | + + + + + Care Team Providers + +------+ + | Care Pigs Feet Cleaner Name | Role | Phone | + +------+ + | Unknown, Doctor | PCP | | + +------+ + Reason for Visit + +--------+ + | Reason | Onset | Comments | | | Date | | + +--------+ + | Medication Question | 04/17/ | | | | 2018 | | + +--------+ + Encounter Details +--------+ + + + + | Date | Type | Department | Care Team | Description | +--------+ + + + + | 04/17/ | Telephone | PATIENT ENGAGEMENT | Debbie Gil | Medication Question | | 2018 | | [facility] [address] | [address] | | | | | [place] | [facility] | | | | | [place], [place] | [place], [place] | | | | | [address] | [address] | | | | | [phone] | [phone] | | | | | | | | +--------+ + + + [...] this encounter Miscellaneous Notes Telephone Encounter - Janae Kemp, Manufacturing Industrial Engineer - 04/17/2018 6:17 PM PSTPer pharm acy there is a shortage of nystatin solution. Notified patient provider will send in Rx for lozenges. P STTelephone Encounter - Debbie Gil ARNP - 04/17/2018 5:47 PM PSTPlease call phar patti to find out when they will get this in. If it is 1-2 days he can wait or it can be sent to another pharmacy. If it is longer than 2 days I would like to do lozenges or another pha rmacy, patient preference. elephone Encounter - Schuyler Galindo - 04/17/2018 12:43 PM PSTCallback Phone Numb er: [phone] Date they were seen: 04/17/2018 Reason for calling: Patient was prescribed Nyastin, he says medication is out of stock at [facility]. documented in this encounte r Plan of Treatment Not on filedocumented as of this encounter Visit Diagnoses Not on filedocumented in this encounter"
--- OUTSIDE RECORDS SUMMARY | ~2019-12-25 | XMS | Encounter Summary ---
Demographics + + + | Address | [address] | | | [place] [address] | + + + | Home Phone | | + + + | Preferred Language | Unknown | + + + | Marital Status | | + + + | Tenriism Affiliation | Unknown | + + + | Race | White | + + + | Ethnic Group | Not or | + + + Author + + + | Author | [facility] | | | and [place] | + + + | Organization | [facility] | | | and [place] | + + + | Address | Unknown | + + + | Phone | Unavailable | + + + Support + + + + + | Name | Relationship | Address | Phone | + + + + + | Lucrecia Zabala | ECON | [place] | | | | | [address] | | + + + + + | Daysi Shafer | ECON | [address] | | | | | [place] [address] | | + + + + + Care Team Providers + +------+ + | Care Registered Travel Nurse Name | Role | Phone | + +------+ + | No Physician | PCP | Unavailable | + +------+ + Encounter Details +--------+ + + + + | Date | Type | Department | Care Team | Description | +--------+ + + + + | 12/19/ | Abstract | [facility] | Dipesh Cabrales, | | | 2016 | | PHYSIATRY [address] | MD [address] | | | | | [address] | [place], [place] | | | | | [place], [place] | [address] | | | | | [address] | | | | | | [phone] | | | +--------+ + + + [...]
--- OUTSIDE RECORDS SUMMARY | ~2019-12-25 | XMS | Encounter Summary ---
Demographics + + + | Address | [address] | | | [place] [address] | + + + | Home Phone | | + + + | Preferred Language | Unknown | + + + | Marital Status | | + + + | Moravian Affiliation | Unknown | + + + | Race | White | + + + | Ethnic Group | Not or | + + + Author + + + | Author | [facility] | | | and [place] | + + + | Organization | [facility] | | | and [place] | + + + | Address | Unknown | + + + | Phone | Unavailable | + + + Support + + + + + | Name | Relationship | Address | Phone | + + + + + | Lucrecia Zabala | ECON | [place] | | | | | [address] | | + + + + + | Daysi Shafer | ECON | [address] | | | | | [place] [address] | | + + + + + Care Team Providers + +------+ + | Care Service Center Specialist Name | Role | Phone | + +------+ + PCP | Unavailable | + +------+ + Encounter Details +--------+ + + + + | Date | Type | Department | Care Team | Description | +--------+ + + + + | 10/19/ | Hospital | [facility] | | | | 2009 | Encounter | MED CTR XRAY [address] | | | | | | [place] | | | | | | [place] [address] | | | | | | [phone] | | | +--------+ + + + [...]
--- OUTSIDE RECORDS SUMMARY | ~2019-12-25 | XMS | Encounter Summary ---
Demographics + + + | Address | [address] | | | [place] [address] | + + + | Home Phone | | + + + | Preferred Language | Unknown | + + + | Marital Status | | + + + | Episcopalian Affiliation | Unknown | + + + | Race | White | + + + | Ethnic Group | Not or | + + + Author + + + | Author | [facility] | | | and [place] | + + + | Organization | [facility] | | | and [place] | + + + | Address | Unknown | + + + | Phone | Unavailable | + + + Support + + + + + | Name | Relationship | Address | Phone | + + + + + | Lucrecia Zabala | ECON | [place] | | | | | [address] | | + + + + + | Daysi Shafer | ECON | [address] | | | | | [place] [address] | | + + + + + Care Team Providers + +------+ + | Care Dehydration Unit Operator Name | Role | Phone | + +------+ + | Lydia Simpson PA-C | PCP | | + +------+ + Encounter Details +--------+ + + + + | Date | Type | Department | Care Team | Description | +--------+ + + + + | 08/02/ | Hospital | [facility] | RennyyaimaMaximiliano clancy | | | 2012 | Encounter | MED CTR XRAY [address] | [address] | | | | | [place] | [place], [place] | | | | | [facility] [place] [address] | [id number] | | | | | [phone] | | | +--------+ + + + [...]
--- OUTSIDE RECORDS SUMMARY | ~2019-12-25 | XMS | Encounter Summary ---
Demographics + + + | Address | [address] | | | [place] [address] | + + + | Home Phone | | + + + | Preferred Language | Unknown | + + + | Marital Status | | + + + | Yarsani Affiliation | Unknown | + + + | Race | White | + + + | Ethnic Group | Not or | + + + Author + + + | Author | [facility] | | | and [place] | + + + | Organization | [facility] | | | and [place] | + + + | Address | Unknown | + + + | Phone | Unavailable | + + + Support + + + + + | Name | Relationship | Address | Phone | + + + + + | Lucrecia Zabala | ECON | [place] | | | | | [address] | | + + + + + | Daysi Shafer | ECON | [address] | | | | | [place] [address] | | + + + + + Care Team Providers + +------+ + | Care Clin Application Specialist Name | Role | Phone | + +------+ + | Unknown, Doctor | PCP | | + +------+ + Reason for Visit + +--------+ + | Reason | Onset | Comments | | | Date | | + +--------+ + | Appointment Question | 04/15/ | | | | 2018 | | + +--------+ + Encounter Details +--------+ + + + + | Date | Type | Department | Care Team | Description | +--------+ + + + + | 04/15/ | Telephone | PATIENT ENGAGEMENT | Shantelle Benson | Appointment Question | | 2018 | | [facility] [address] | [address] | | | | | [address] | [address] [place] | | | | | [place] | [place] [address] | | | | | [address] | [phone] | | | | | [phone] | | | +--------+ + + + [...] Miscellaneous Notes Telephone Encounter - Janae Kemp, E Commerce Analyst - 04/15/2018 10:07 AM PSTPatient n otified, he verbalized understanding. elephone Encounter - Shantelle Benson ARNP - 04/15/19 19 10:03 AM PSTPt would need to be seen to determine cause of eye issue, is taking Augmentin should be on day 7 of this treatment, this would not cover Bacterial conjunctivitisElectron ically signed by LISA Amezcua at 04/15/2018 10:04 AM PSTTelephone Encounter - Janae Kemp, E Commerce Analyst - 04/15/2018 10:01 AM PSTPlease advise, thank you.Ashley fried signed by Janae Kemp E Commerce Analyst at 04/15/2018 10:01 AM PSTTelephone En latoya - Krystyna Mcneill - 04/15/2018 9:47 AM PSTCallback Date they were seen:04/08/2018 Reason for calling:pt calling stating that he woe up this morning and his eye was all red a nd puffy. He was recently seen with your clinic for a sinus infection and just wants to know of this could maybe be another symptom of that. He would like a call back to let him know i f something can be sent in for him or if he needs to be seen again. Please call him back, he gave verbal permission to leave a detailed VM If he doesn't answer. documented in this encount er Plan of Treatment Not on filedocumented as of this encounter Visit Diagnoses Not on filedocumented in this encounter"
--- OUTSIDE RECORDS SUMMARY | ~2019-12-25 | XMS | Encounter Summary ---
Demographics + + + | Address | [address] | | | [place] [address] | + + + | Home Phone | | + + + | Preferred Language | Unknown | + + + | Marital Status | | + + + | Anabaptist Affiliation | Unknown | + + + | Race | White | + + + | Ethnic Group | Not or | + + + Author + + + | Author | [facility] | | | and [place] | + + + | Organization | [facility] | | | and [place] | + + + | Address | Unknown | + + + | Phone | Unavailable | + + + Support + + + + + | Name | Relationship | Address | Phone | + + + + + | Lucrecia Zabala | ECON | [place] | | | | | [address] | | + + + + + | Daysi Shafer | ECON | [address] | | | | | [place] [address] | | + + + + + Care Team Providers + +------+ + | Care Locomotive Firer/Fireman Name | Role | Phone | + +------+ + PCP | Unavailable | + +------+ + Encounter Details +--------+ + + + + | Date | Type | Department | Care Team | Description | +--------+ + + + + | 03/20/ | Hospital | [facility] | John, | | | 2009 | Encounter | MED CTR EMERGENCY | Alton Pace MD [address] | | | | | [place] [address] | [address] [facility] | | | | | [place], [place] | [place] [address] | | | | | [address] | [phone] | | | | | [phone] | | | +--------+ + + + [...]
--- OUTSIDE RECORDS SUMMARY | ~2019-12-25 | XMS | Encounter Summary ---
Demographics + + + | Address | [address] | | | [place] [address] | + + + | Home Phone | | + + + | Preferred Language | Unknown | + + + | Marital Status | | + + + | Judaism Affiliation | Unknown | + + + | Race | White | + + + | Ethnic Group | Not or | + + + Author + + + | Author | [facility] | | | and [place] | + + + | Organization | [facility] | | | and [place] | + + + | Address | Unknown | + + + | Phone | Unavailable | + + + Support + + + + + | Name | Relationship | Address | Phone | + + + + + | Lucrecia Zabala | ECON | [place] | | | | | [address] | | + + + + + | Daysi Lira | ECON | [address] | | | | | [place] [address] | | + + + + + Care Team Providers + +------+ + | Care Forest Practices Field Coordinator Name | Role | Phone | + +------+ + | Lydia Simpson PA-C | PCP | | + +------+ + Encounter Details +--------+ + + + + | Date | Type | Department | Care Team | Description | +--------+ + + + + | 05/08/ | Hospital | [facility] | Byron Pryor | | | 2013 - | Encounter | MED CTR EMERGENCY | MD Leon [address] | | | | | [address] | [facility] | | | 05/09/ | | [place] | [place] [address] | | | 2013 | | [address] | [phone] | | | | | [phone] | | | +--------+ + + + [...] encounter ED Notes Byron Pryor MD - 05/09/2013 12:15 AM [place], [place] [address] Patient Name: ANURADHA LIRA Coco BARRY Provider: Unit #: [id number] Location: : 1980 DATE: 05/08/2013 TIME OF EXAM: 2240 REASON FOR PRESENTATION: Chest discomfort. HISTORY OF PRESENT ILLNESS: The patient is a 33-year-old male who presents with left upper chest discomfort radiating up towards the left shoulder. Symptoms present for the past cou ple of hours. He describes it as dull, aching and not worsened or improved by anything. It has been constant since its onset. Nothing he can think of makes the pain better or worse. He has tried changing positions. He has tried sitting in different positions without any ch marisela in symptoms. He reports that it is not worsened by taking deep breaths. He is not ligh theaded or dizzy. He has not passed out. He notes no associated shortness of breath, diapho resis, nausea. He has no swelling or pain in his extremities. He has not been otherwise ill . Has no reported injuries or traumas to the area. PAST MEDICAL HISTORY: Asthma. He does not have history of diabetes, hypertension, renal di sease. FAMILY HISTORY: No history of early coronary disease, DVT or PE. SOCIAL HISTORY: Occasional alcohol, smokes cigarettes, denies street drug use. MEDICATIONS: None. ALLERGIES: NONE. REVIEW OF SYSTEMS: As noted in HPI, otherwise negative. PHYSICAL EXAMINATION VITAL SIGNS: Blood pressure 158/102, heart rate 105, respiratory rate 16, temperature 97.7 , oxygen saturation 97% on room air. GENERAL: The patient nontoxic appearing, in no acute distress, breathing comfortably, rest ing in bed, speaking in complete sentences with normal voice. HEENT: Normocephalic. Oropharynx moist and patent. Trachea midline. HEART: Regular, no murmurs, gallops, or rubs. LUNGS: Clear, symmetric. Good air movement at the bases bilaterally. Has no reproducible c hest tenderness. ABDOMEN: Nontender. No CVA tenderness. SKIN: Intact without rashes or lesions. EXTREMITIES: Lower extremities not swollen, tender, or edematous. NEUROLOGIC: The patient is alert, oriented, appropriate, ambulatory in the emergency depar tment without difficulty. Normal balance and gait. A 12-lead EKG obtained upon arrival to the emergency department shows sinus rhythm, rate 9 6, normal axis, normal intervals, normal ST and T segments, normal EKG. D-dimer is within n ormal limits at 0.35. Troponin is undetectable at less than 0.01. Portable chest x-ray shows no focal infiltrates, no pneumothorax, normal mediastinum, norm al cardiac shadow, no acute disease, normal x-ray. On reevaluation, the patient's blood pressure, heart rate and symptoms have improved. The patient's history and physical is not concerning for acute coronary syndrome, pulmonary emb olism or other life- threatening cardiopulmonary pathology. His EKG, x-ray and blood work a re normal. He is young and without significant risk factors for cardiac or pulmonary diseas e. Given that his symptoms improved, his vital signs have normalized and his unremarkable h istory, physical, and workup outpatient treatment is indicated. If his symptoms return, lawrence nge or worsen, he should return immediately. He is otherwise to follow up with his primary care doctor for further evaluation and workup. DIAGNOSIS CHEST PAIN, NONCARDIAC, IMPROVED. PLAN: As above. DICTATED BY: Byron Pryor MD Emergency Medicine JOB #: [id number] EXT JOB #:[id number] <<Signature on File>> Byron Pryor MD05/10/13 2147 < documented in this encounter Plan of Treatment Not on filedocumented as of this encounter Procedures + +--------+ + + + | Procedure Name | Priori | Date/Time | Associated Diagnosis | Comments | | | ty | | | | + +--------+ + + + | XR CHEST AP PORTABLE | Routin | 05/09/2013 | | Results for this | | | e | 8:37 AM | | procedure are in the | | | | PST | | results section. | + +--------+ + + + | TROPONIN I | Routin | 05/08/2013 | | Results for this | | | e | 10:54 PM | | procedure are in the | | | | PST | | results section. | + +--------+ + + + | D-DIMER | Routin | 05/08/2013 | | Results for this | | | e | 10:54 PM | | procedure are in the | | | | PST | | results section. | + +--------+ + + + documented in this encounter Results XR Chest AP Portable (05/09/2013 8:37 AM PST) + + | Specimen | + + | | + + + + + | Narrative | Performed At | + + + | [facility] | [place] | | Department [address] [place] [address] [place] | [facility] | | [ rep [address]] [ rep ct [facility] | | st zip] Signed | - IMAGING | | | | | Patient Name: ANURADHA LIRA JR | | | Physician: BARRON : 1980 Age: 33 Sex: M Unit | | | #: [id number] Exam Date: 05/08/13 Location: | | | ER Report #: [id number] Page: | | | %(RAD)RES..mtdd.print.filter("pg") of %(RAD) | | | RES..mtdd.print.filter("tpg") | | | | | | Accession Number: [id number] | | | CHEST, PORTABLE CLINICAL HISTORY: CHEST PAIN. | | | COMPARISON: 08/13/2010, 12/06/2002 FINDINGS: AP | | | view of the chest demonstrates normal lungs, heart, and osseous | | | structures. IMPRESSION: 1. NORMAL CHEST X-RAY. | | | Dictated Date/Time: 05/09/2013 08:37 Transcribed | | | Date/Time: 05/09/2013 08:50 Cytotechnologist/Histotechnologist: | | | <<Signature on File>> | | | Kin | | | MD Jimmy05/09/13916 <Electronically signed by Kin Marquez MD> | | | Kin Marquez MD 05/09/1337 Cytotechnologist/Histotechnologist: [employer] | | | [id number]/27/14 0850 Byron Pryor MD | | + + + + + + + + | Performing | Address | City/State/Zipcode | Phone Number | | Organization | | | | + + + + + | [facility] | [address] | [place] | [phone] | | [facility] | | [address] | | | - IMAGING | | | | + + + + + D-Dimer (05/08/2013 10:54 PM PST) + + + + + + | Component | Value | Ref Range | Performed | Pathologist | | | | | At | Signature | + + + + + + | D-DIMER, | 0.35Comment: This | <0.50 ug/mlFEU | [facility] | | | QUANTIT[facility]IV | quantitative D-Dimer | | [facility] | | | E | assay has been evaluated | | MEDICAL | | | | for screening for | | CENTER - | | | | venous thrombotic | | LABORATORY | | | | disease, and may be | | | | | | useful in ruling out, | | | | | | but not ruling in | | | | | | disease. Values less | | | | | | than 0.50 ug/mL FEU | | | | | | (Fibrinogen Equivalent | | | | | | Units) have a negative | | | | | | predictive value of | | | | | | approximately 95% for | | | | | | ruling out large | | | | | | pulmonary emboli or | | | | | | proximal deep vein | | | | | | thrombosis. Distal DVT | | | | | | are not excluded. An | | | | | | elevated D-dimer can be | | | | | | present in patients | | | | | | with liver disease, | | | | | | , eclampsia, | | | | | | heart disease and some | | | | | | cancers among other | | | | | | conditions. The | | | | | | presence of rheumatoid | | | | | | factor at a level >50 | | | | | | IU/mL may falsely | | | | | | elevate the determined | | | | | | D-dimer levels. | | | | + + + + + + + + | Specimen | + + | | + + + + + + + | Performing | Address | City/State/Zipcode | Phone Number | | Organization | | | | + + + + + | [facility] | [address] | [place] | [phone] | | [facility] | | [address] | | | - LABORATORY | | | | + + + + + | [facility] | [address] | [place], [place] | | | [facility] | | [address], [facility] | | | - LABORATORY | | | | + + + + + Troponin I (05/08/2013 10:54 PM PST) + + + + + + | Component | Value | Ref Range | Performed | Pathologist | | | | | At | Signature | + + + + + + | Troponin I | <0.01Comment: Reference | <0.06 ng/mL | [facility] | | | | Ranges: | | [facility] | | | | 0.00-0.06 = NORMAL | | MEDICAL | | | | >0.06 | | CENTER - | | | | = SUSPICIOUS FOR | | LABORATORY | | | | MYOCARDIAL DAMAGE | | | | | | NOTE: Values greater | | | | | | than 0.50 ng/mL have | | | | | | been shown to be | | | | | | strongly associated with | | | | | | acute myocardial | | | | | | infarction. The | | | | | | [employer] | | | | | | Cardiology (ACC) | | | | | | recommends a decision | | | | | | limit of 0.06 ng/mL for | | | | | | this assay. Results | | | | | | greater than 0.06 can | | | | | | reflect a pre-infarct | | | | | | acute coronary | | | | | | syndrome, but can also | | | | | | reflect myocardial | | | | | | necrosis or injury | | | | | | that is not due to | | | | | | coronary artery | | | | | | disease. Some of these | | | | | | causes are sepsis, | | | | | | hypocolemia, atrial | | | | | | fibrillation, heart | | | | | | failure, pulmonary | | | | | | embolism, myocarditis, | | | | | | myocardial contusion, | | | | | | and renal failure. The | | | | | | diagnosis of myocardial | | | | | | infarction should be | | | | | | based on a combination | | | | | | of the patient's | | | | | | clinical presentation | | | | | | and the clinical | | | | | | laboratory test results | | | | | | (especially serial | | | | | | troponin levels). | | | | + + + + + + + + | Specimen | + + | | + + + + + + + | Performing | Address | City/State/Zipcode | Phone Number | | Organization | | | | + + + + + | [facility] | [address] | [place] | [phone] | | [facility] | | [address] | | | - LABORATORY | | | | + + + + + | [facility] | [address] | [place] | | | [facility] | | [id number] [place] [address] | | | - LABORATORY | | | | + + + + + documented in this encounter Visit Diagnoses Not on filedocumented in this encounter
--- OUTSIDE RECORDS SUMMARY | ~2019-12-25 | XMS | Encounter Summary ---
Demographics + + + | Address | [address] | | | [place] [address] | + + + | Home Phone | | + + + | Preferred Language | Unknown | + + + | Marital Status | | + + + | Latter Day Affiliation | Unknown | + + + | Race | White | + + + | Ethnic Group | Not or | + + + Author + + + | Author | [facility] | | | and [place] | + + + | Organization | [facility] | | | and [place] | + + + | Address | Unknown | + + + | Phone | Unavailable | + + + Support + + + + + | Name | Relationship | Address | Phone | + + + + + | Lucrecia Zabala | ECON | [place] | | | | | [address] | | + + + + + | Daysi Shafer | ECON | [address] | | | | | [place] [address] | | + + + + + Care Team Providers + +------+ + | Care Vallez Filter Operator Name | Role | Phone | + +------+ + | Lydia Simpson PA-C | PCP | | + +------+ + Reason for Visit +--------+--------+ + | Reason | Onset | Comments | | | Date | | +--------+--------+ + | Other | 08/01/ | Schedule MRI | | | 2012 | | +--------+--------+ + Encounter Details +--------+ + + + + | Date | Type | Department | Care Team | Description | +--------+ + + + + | 08/01/ | Telephone | [facility] | Maximiliano Macias | Other (Schedule MRI) | | 2012 | | PHYSIATRY [address] | [address] | | | | | [address] | [place], [place] | | | | | [place], [place] | [address] | | | | | [address] | | | | | | [phone] | | | +--------+ + + + [...] this encounter Miscellaneous Notes Telephone Encounter - Chayito Cisse - 08/01/2012 4:58 PM PDTLeft second voicemail for patient to call our office in regards to scheduling MRI. documented in this encounter Plan of Treatment Not on filedocumented as of this encounter Visit Diagnoses Not on filedocumented in this encounter"
--- OUTSIDE RECORDS SUMMARY | ~2019-12-25 | XMS | Encounter Summary ---
Demographics + + + | Address | [address] | | | [place] [address] | + + + | Home Phone | | + + + | Preferred Language | Unknown | + + + | Marital Status | | + + + | Methodist Affiliation | Unknown | + + + | Race | White | + + + | Ethnic Group | Not or | + + + Author + + + | Author | [facility] | | | and [place] | + + + | Organization | [facility] | | | and [place] | + + + | Address | Unknown | + + + | Phone | Unavailable | + + + Support + + + + + | Name | Relationship | Address | Phone | + + + + + | Lucrecia Zabala | ECON | [place] | | | | | [address] | | + + + + + | Daysi Shafer | ECON | [address] | | | | | [place] [address] | | + + + + + Care Team Providers + +------+ + | Care Market Basket Maker Name | Role | Phone | + +------+ + PCP | Unavailable | + +------+ + Encounter Details +--------+ + + + + | Date | Type | Department | Care Team | Description | +--------+ + + + + | 11/25/ | Hospital | [facility] | Alton Macias | | | 2011 | Encounter | MED CTR EMERGENCY | Byron Sanz MD | | | | | CENTER [address] | [address] | | | | | [place], [place] | [place], [place] | | | | | [address] | [address] | | | | | [phone] | | | +--------+ + + + [...] documented as of this encounter ED Notes Alton Macias MD - 11/26/2011 5:53 AM PDTDATE: 11/26/2011 HISTORY OF PRESENT ILLNESS: This is a 31-year-old male who presents to the emergency room w ith right- sided lower jaw pain as well as right ear pain. He states that this has been goi ng on for the last 24 hours. He has a history of dental problems. He was seen at urgent car e approximately 1 week ago and was started on antibiotics. He started penicillin. Pain went away for a few days, but has returned and in much more severe condition. The nadya ent has no nausea, no vomiting, no fever at this point. REVIEW OF SYSTEMS Complete review of systems completed by me, all components negative. PAST MEDICAL HISTORY: Multiple visits to the ER for dental pain. SOCIAL HISTORY: He currently smokes. Denies substance abuse. MEDICATIONS: None. ALLERGIES TO MEDICATIONS: NONE. PHYSICAL EXAMINATION VITAL SIGNS: Blood pressure is 134/81, heart rate of 100. Respirations 14, O2 saturation 96 %, tempera ture is 97. HEENT: Pupils equal, round and reactive to light. Extraocular movements intact. NECK: Supple, nontender, no lymphadenopathy. EARS: Tympanic membranes bilaterally are clear. Otic canals are clear. MOUTH: Dentition is poor. He has marked caries in the right lower jaw with erosion at the gum line a nd tenderness at the gum line at the right lower jaw. No appreciable abscess or swelling at this time . RESPIRATORY: Equal breath sounds bilaterally. No wheezing, rales or rhonchi. CARDIOVASCULAR: Regular rate and rhythm. ABDOMEN: Soft, nontender, no organomegaly. BACK: Normal to inspection. FURTHER DISCUSSION: The patient has appreciable dental caries with inflammation of the gums . At this point, I think that penicillin was a good effort but I would like to change the p atient to clindamyci n and have him follow in the dental clinic. CLINICAL IMPRESSION: At this time is 1. DENTAL PAIN. 2. DENTAL CARIES. DICTATED BY: Alton Macias MD Emergency Medicine JOB #: [id number] EXT JOB #:[id number] <Electronicall y Signed by Alton Macias MD> 12/01/11 0736 documented in this encounter Plan of Treatment Not on filedocumented as of this encounter Visit Diagnoses Not on filedocumented in this encounter"
--- OUTSIDE RECORDS SUMMARY | ~2019-12-25 | XMS | Encounter Summary ---
Demographics + + + | Address | [address] | | | [place] [address] | + + + | Home Phone [...] + + + | Author | [facility] | | | and [place] | + + + | Organization | [facility] | | | and [place] | + + + | Address | Unknown | + + + | Phone | Unavailable | + + + Support + + + + + | Name | Relationship | Address | Phone | + + + + + | Lucrecia Zabala | ECON | [place] | | | | | [address] | | + + + + + | Daysi Shafer | ECON | [address] | | | | | [place] [address] | | + + + + + Care Team Providers + +------+ + | Care Telephone Messenger Name | Role | Phone | + +------+ + | Unknown, Doctor | PCP | | + +------+ + Reason for Visit + + + | Reason | Comments | + + + | Testicle Pain | | + + + Encounter Details +--------+ + + + + | Date | Type | Department | Care Team | Description | +--------+ + + + + | 08/04/ | Emergency | [facility] | Freddie Reis MD | Epididymitis | | 2019 | | [facility] | [address] | (Primary Dx) | | | | CENTER [address] | [place] | | | | | [place] | [address] | | | | | [address] | | | | | | [phone] | | | +--------+ + + + [...] + + + | Blood Pressure | 130/91 | 08/04/2018 9:14 PM | | | | | PDT | | + + + + + | Pulse | 81 | 08/04/2018 9:14 PM | | | | | PDT | | + + + + + | Temperature | 36.4 C (97.5 F) | 08/04/2018 7:11 PM | | | | | PDT | | + + + + + | Respiratory Rate | 18 | 08/04/2018 9:14 PM | | | | | PDT | | + + + + + | Oxygen Saturation | 95% | 08/04/2018 9:14 PM | | | | | PDT | | + + + + + | Inhaled Oxygen | - | - | | | Concentration | | | | + + + + + | Weight | 97.1 kg (214 lb) | 08/04/2018 7:11 PM | | | | | PDT | | + + + + + | Height | 165.1 cm (5' 5") | 08/04/2018 7:11 PM | | | | | PDT | | + + + + + | Body Mass Index | 35.61 | 08/04/2018 7:11 PM | | | | | PDT | | + + + + + documented in this encounter Discharge Instructions Instructions Freddie Reis MD - 08/04/2018Fill prescription for antibiotics if different fr om your current antibiotics. Follow-up with Dr. Martin. Return for any worsening symptoms, fevers, chills. AttachmentsThe following attachments cannot be sent through Care Everywhere.Epididymitis (E dipti)Acetaminophen; Hydrocodone tablets or capsules (Italian)documented in this encounter Medications at Time of Discharge + + + +---------+ + + | Medication | Sig | Dispensed | Refills | Start | End Date | | | | | | Date | | + + + +---------+ + + | clotrimazole | Slowly dissolve one | 70 | 0 | 04/17/19 | | | (CLOTRIMAZOLE) 10 mg | [...] + +---------+ + + | | Take 1 tablet by | 12 | 0 | 08/05/19 | | | HYDROcodone-acetamin | mouth every 6 hours | tablet | | 19 | 9 | | ophen (NORCO) 5-325 | as needed for Pain | | | | | | mg per tablet | for up to 3 days. | | | | | + + + +---------+ + + | levoFLOXacin | Take 1 tablet by | 10 | 0 | 08/05/19 | | | (LEVAQUIN) 500 mg | mouth Daily for 10 | tablet | | 19 | 9 | | tablet | days. | | | | | + + + +---------+ + + documented as of this encounter ED Notes Freddie Reis MD - 08/04/2018 7:21 PM PDTFormatting of this note might be different from t apryl singh. [facility] Joseph Hollis Aceves. Emergency Department Encounter Note [address] [place] [id number] PCP:Doctor Unknown [phone] CHIEF COMPLAINT: Chief Complaint Patient presents with Testicle Pain ED Room: ED15/ED15 HPI Angel Shafer is a 38 y.o. male who presents to the Emergency Department with right testic ular pain. Patient has been having testicular pain since last Monday. He was evaluated her e and found to have a cyst. He was referred to urology. He was evaluated by Dr. Howell and diagnosed with epididymitis and placed on antibiotics. He does not know what antibiotic he was placed on. The past several days he said worsening of that right is. Denies any new s exual partners over the past 15 years. Has a history of gonorrhea but that was years ago. Denies any penile discharge, no dysuria hematuria. Denies any diarrhea or constipation. St ates that he feels like somebody kicked him in the testicles and some pain radiating up his groin. No history of kidney stones. PAST MEDICAL & SURGICAL HISTORY Past Medical History: Diagnosis Date Back pain, thoracic Carpal tunnel syndrome on left Disc displacement, thoracic Numbness of left hand Thoracic spondylosis without myelopathy Past Surgical History: Procedure Laterality Date APPENDECTOMY CARPAL TUNNEL RELEASE Right Dr. Kaur; [facility] [place]. 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 Medications Medication Sig clotrimazole (CLOTRIMAZOLE) 10 mg [...] No Known Allergies FAMILY AND SOCIAL HISTORY Family History Problem Relation Age of Onset Other (see comment) Mother Lung problems No known problems Father No known problems Maternal Grandmother No known problems Maternal Grandfather No known problems Paternal Grandmother No known problems Paternal Grandfather Diabetes Paternal Uncle Social History Socioeconomic History Marital status: Spouse name: Daysi Shafer Number of children: 5 Years of education: Not on file Highest education level: Not on file Occupational History Employer: [employer] Comment: On Leave Tobacco Use Smoking status: Current Every Day Smoker Packs/day: 0.50 Years: 15.00 Pack years: 7.50 Types: Cigarettes Smokeless tobacco: Never Used Substance and Sexual Activity Alcohol use: Yes Comment: Rare Drug use: No Comment: In past Sexual activity: Yes REVIEW OF SYSTEMS As in history of present illness. A 10 system review was otherwise negative. PHYSICAL EXAM VITAL SIGNS: (first vital signs):Temp: 36.4 C (97.5 F) Pulse: 110 Resp: 12 SpO2: 97 % B P: (!) 133/93 Body mass index is 35.61 kg/m. Constitutional: male patient, pleasant male in no acute distress HEENT: Atraumatic, PERRL, Oropharynx benign. Neck: Supple with full range of motion. Respiratory: Good air movement bilaterally. Cardiovascular: Normal S1 S2 Abdomen: Soft, nontender, nondistended, no CVA tenderness : Anam at bedside RN, tenderness over the inferior pole of the right testicle, positive cremasteric reflex, no erythema, no ecchymosis Extremities: Nontender. Skin: Warm, Dry, No rashes Neurologic: Alert & oriented. Psychiatric: Normal mood, affect and judgement. EKG 12-lead EKG shows LABS Results for orders placed or performed during the hospital encounter of 08/04/18 Urinalysis with Microscopic with Culture if Indicated Result Value Ref Range Color Yellow Light Yellow, Yellow, Straw Clarity Clear Clear pH, Urine 5.0 5.0 - 8.0 Specific [place] 1.027 1.001 - 1.030 Protein, Urine 30 mg/dL (A) Negative Blood, Urine Negative Negative Glucose, Urine Negative Negative Ketones, Urine Negative Negative Bilirubin, Urine Negative Negative Nitrite, Urine Negative Negative Leukocyte Esterase, Urine Negative Negative Urobilinogen, Urine 2.0 mg/dL (A) 0.2 mg/dL, 1.0 mg/dL, Negative WBC UA 0-2 0 - 2 /HPF RBC UA 0-2 0 - 2 /HPF SQUAMOUS EPITHELIAL UA 0-2 0 - 2 /LPF BACTERIA UA Negative Negative /HPF MUCUS UA Present (A) Negative /LPF URINE COMMENT Urine Culture Not Indicated IMAGING STUDIES (X-Rays interpreted by ED Physician) Ultrasound revealed a fluid collection in inferior pole. That location was where he was mo st sensitive per pattern grader cutter ED COURSE & MEDICAL DECISION MAKING Pertinent Labs & Imaging studies were reviewed along with EMS notes and penitentiary record s if applicable. (See chart for details) Medications and Allergy list reviewed. Nurses note and old records were reviewed The patient was seen and examined, Patient has been on antibiotics since Monday. Unsure what antibiotics he is on right now. We do not have medical records of [facility] and write it was closed. He will be given a prescription for Levaquin for 10 days if the antibiotic is different from what he is currently on. He will be given a pressures were pain medication. Encouraged a follow-up w isma Howell. Asked him to return for any worsening symptoms. Last Set of Vital Signs: Temp: 36.4 C (97.5 F) Pulse: 81 Resp: 18 SpO2: 95 % BP: (!) 13 FINAL IMPRESSION ICD-10-CM ICD-9-CM 1. EpididymitisAcute N45.1 604.90 Follow-up Information Doctor Unknown. Contact information: [phone] [facility]. Specialty: Emergency Medicine Why: If symptoms worsen Contact information: [address] [facility] [address] Discharge Medication List as of 08/04/2018 21:52 START taking these medications Details HYDROcodone-acetaminophen (NORCO) 5-325 mg per tablet Take 1 tablet by mouth every 6 hours as needed for Pain for up to 3 days.Disp-12 tablet, R-0, Print levoFLOXacin (LEVAQUIN) 500 mg tablet Take 1 tablet by mouth Daily for 10 days.Disp-10 tabl et, R-0, Normal Freddie Reis MD 08/04/182199 É MANUELRingVarun garza RN - 08/04/2018 7:13 PM PDTPt. Seen here last Monday for groin pain. He saw urologist and he was put on antibiotics not getting better. He has epidydimitis. documented in this encounter Plan of Treatment Not on filedocumented as of this encounter Procedures + +--------+ + + + | Procedure Name | Priori | Date/Time | Associated Diagnosis | Comments | | | ty | | | | + +--------+ + + + | US SCROTUM AND | STAT | 08/04/2018 | | Results for this | | TESTICLES | | 9:17 PM | | procedure are in the | | | | PDT | | results section. | + +--------+ + + + | URINALYSIS WITH | STAT | 08/04/2018 | | Results for this | | MICROSCOPIC WITH | | 8:05 PM | | procedure are in the | | CULTURE IF INDICATED | | PDT | | results section. | + +--------+ + + + documented in this encounter Results US Scrotum And Testicles (08/04/2018 9:17 PM PDT) + + | Specimen | + + | | + + + + + | Narrative | Performed At | + + + | US SCROTUM AND TESTICLES 08/04/2018 8:25 PM HISTORY: TESTICLE | [facility] | | PAIN. COMPARISON: 07/29/2018. PROTOCOL: Santos scale and Doppler | | | images of the scrotum. FINDINGS: Right testicle: The parenchyma | | | is normal with normal color flow. The testicle measures 4.1 x 2.5 x | | | 3.1 cm. Spermatocele/epididymal head cyst measures 7 mm. 9 mm | | | hypoechoic cystic lesion along the inferior epididymis is new since | | | prior examination and correlates with patient's area of pain. | | | Asymmetrically increased size of the right epididymis. Normal with | | | normal color flow. Small hydrocele. Left testicle: The parenchyma | | | is normal with normal color flow. The testicle measures 4.3 x 2.7 x | | | 3.1 cm. The left epididymis is normal with normal color flow. Small | | | varicocele is noted. Small left-sided hydrocele. IMPRESSION - 9 | | | mm hypoechoic cystic lesion along the inferior epididymis is new since | | | prior examination and correlates with patient's area of pain. | | | Asymmetric size with enlargement of the right epididymis in comparison | | | to the left. No suspicious abnormal color flow in this area to | | | suggest epididymitis at this time. The preliminary findings were | | | conveyed to the ordering provider, by the pattern grader cutter, immediately | | | following the exam. Dictated and Signed by: Steven Peterson MD | | | Electronically signed: 08/05/2018 11:26 AM | | + + + + + | Procedure Note | + + | Kuldeep, Rad Results In - 08/05/2018 11:29 AM PDT US SCROTUM AND TESTICLES 08/04/2018 8:25 | | PM HISTORY: TESTICLE PAIN.COMPARISON: 07/29/2018.PROTOCOL: Santos scale and Doppler images | | of the scrotum.FINDINGS:Right testicle: The parenchyma is normal with normal color | | flow. The testiclemeasures 4.1 x 2.5 x 3.1 cm. Spermatocele/epididymal head cyst | | measures 7 mm. 9mm hypoechoic cystic lesion along the inferior epididymis is new since | | priorexamination and correlates with patient's area of pain. Asymmetrically | | increasedsize of the right epididymis. Normal with normal color flow. Small | | hydrocele.Left testicle: The parenchyma is normal with normal color flow. The | | testiclemeasures 4.3 x 2.7 x 3.1 cm. The left epididymis is normal with normal | | colorflow. Small varicocele is noted. Small left-sided hydrocele.IMPRESSION -9 mm | | hypoechoic cystic lesion along the inferior epididymis is new since priorexamination and | | correlates with patient's area of pain.Asymmetric size with enlargement of the right | | epididymis in comparison to theleft. No suspicious abnormal color flow in this area to | | suggest epididymitis atthis time.The preliminary findings were conveyed to the ordering | | provider, by thesonographer, immediately following the exam.Dictated and Signed by: Steven | | MD Nicholas Electronically signed: 08/05/2018 11:26 AM | |measures 4.3 x 2.7 x 3.1 cm. The left epididymis is normal with normal color | |flow. Small varicocele is noted. Small left-sided hydrocele. | | | |IMPRESSION - | |9 mm hypoechoic cystic lesion along the inferior epididymis is new since prior | |examination and correlates with patient's area of pain. | | | |Asymmetric size with enlargement of the right epididymis in comparison to the | |left. No suspicious abnormal color flow in this area to suggest epididymitis at | |this time. | | | |The preliminary findings were conveyed to the ordering provider, by the | |pattern grader cutter, immediately following the exam. | | | |Dictated and Signed by: Steven Peterson MD | | Electronically signed: 08/05/2018 11:26 AM | + + + +---------+ + + | Performing | Address | City/State/Zipcode | Phone Number | | Organization | | | | + +---------+ + + | [facility] | | | | + +---------+ + + Urinalysis with Microscopic with Culture if Indicated (08/04/2018 8:05 PM PDT) + + + + + + | Component | Value | Ref Range | Performed | Pathologist | | | | | At | Signature | + + + + + + | Color, | Yellow | Light Yellow, | [facility] | | | Urine | | Yellow, Straw | [facility] | | | | | | [facility] | | | | | | [facility] - | | | | | | LABORATORY | | + + + + + + | Clarity, | Clear | Clear | [facility] | | | Urine | | | [facility] | | | | | | [facility] | | | | | | [facility]ENTER - | | | | | | LABORATORY | | + + + + + + | pH, Urine | 5.0 | 5.0 - 8.0 | [facility] | | | | | | [facility] | | | | | | [facility] | | | | | | C[facility] - | | | | | | LABORATORY | | + + + + + + | Specific | 1.027 | 1.001 - 1.030 | [facility] | | | [place], | | | [facility] | | | Urine | | | MEDICAL | | | | | | CENTER - | | | | | | LABORATORY | | + + + + + + | Protein, | 30 mg/dL (A) | Negative | [facility] | | | Urine | | | [facility] | | | | | | [facility] | | | | | | CENTER - | | | | | | LABORATORY | | + + + + + + | Blood, | Negative | Negative | [facility] | | | Urine | | | [facility] | | | | | | [facility] | | | | | | CENTER - | | | | | | LABORATORY | | + + + + + + | Glucose, | Negative | Negative | [facility] | | | Urine | | | [facility] | | | | | | [facility] | | | | | | CENTER - | | | | | | LABORATORY | | + + + + + + | Ketones, | Negative | Negative | [facility] | | | Urine | | | [facility] | | | | | | [facility] | | | | | | CENTER - | | | | | | LABORATORY | | + + + + + + | Bilirubin, | Negative | Negative | [facility] | | | Urine | | | [facility] | | | | | | [facility] | | | | | | CENTER - | | | | | | LABORATORY | | + + + + + + | Nitrite, | Negative | Negative | [facility] | | | Urine | | | [facility] | | | | | | [facility] | | | | | | CENTER - | | | | | | LABORATORY | | + + + + + + | Leukocyte | Negative | Negative | [facility] | | | Esterase, | | | [facility] | | | Urine | | | MEDICAL | | | | | | CENTER - | | | | | | LABORATORY | | + + + + + + | Urobilinoge | 2.0 mg/dL (A) | 0.2 mg/dL, 1.0 | [facility] | | | n, Urine | | mg/dL, Negative | [facility] | | | | | | [facility] | | | | | | CENTER - | | | | | | LABORATORY | | + + + + + + | White Blood | 0-2 | 0 - 2 /HPF | [facility] | | | Cells, | | | [facility] | | | Urine | | | MEDICAL | | | | | | CENTER - | | | | | | LABORATORY | | + + + + + + | Red Blood | 0-2 | 0 - 2 /HPF | [facility] | | | Cells, | | | [facility] | | | Urine | | | MEDICAL | | | | | | CENTER - | | | | | | LABORATORY | | + + + + + + | Squamous | 0-2 | 0 - 2 /LPF | [facility] | | | Epithelial | | | [facility] | | | Cells, | | | MEDICAL | | | Urine | | | CENTER - | | | | | | LABORATORY | | + + + + + + | Bacteria, | Negative | Negative /HPF | [facility] | | | Urine | | | [facility] | | | | | | MEDICAL | | | | | | CENTER - | | | | | | LABORATORY | | + + + + + + | Mucus, | Present (A) | Negative /LPF | [facility] | | | Urine | | | [facility] | | | | | | MEDICAL | | | | | | CENTER - | | | | | | LABORATORY | | + + + + + + | Urine | Urine Culture Not | | [facility] | | | Comment | Indicated | | [facility] | | | | | | [facility] | | | | | | [facility] - | | | | | | LABORATORY | | + + + + + + + + | Specimen | + + | Urine - Urine | | specimen obtained by | | clean catch | | procedure (specimen) | + + + + + + + | Performing | Address | City/State/Zipcode | Phone Number | | Organization | | | | + + + + + | [facility] | [address] | [place] | [phone] | | [facility] | | [address] | | | - LABORATORY | | | | + + + + + documented in this encounter Visit Diagnoses + + | Diagnosis | + + | Epididymitis - Primary Orchitis and epididymitis, unspecified | + + documented in this encounter Administered Medications + + + + +------+------+ | Medication Order | MAR | Action | Dose | Rate | Site | | | Action | Date | | | | + + + + +------+------+ | HYDROcodone-acetaminophen | Dispense | 08/05/19 | 1 tablet | | | | (NORCO) 5-325 mg per tablet (ER | to Home | 19 9:55 | | | | | Prepack) 1 tablet 1 tablet, | | PM PDT | | | | | Oral, EVERY 6 HOURS PRN, pain, | | | | | | | Starting 08/04/18 at 2150, | | | | | | | Patient Address: [address] [place] [address], | | | | | | | [place] [address], | | | | | | + + + + +------+------+ +---+---+ | | | +---+---+ documented in this encounter
--- OUTSIDE RECORDS SUMMARY | ~2019-12-25 | XMS | Encounter Summary ---
Demographics + + + | Address | [address] | | | [place] [address] | + + + | Home Phone | | + + + | Preferred Language | Unknown | + + + | Marital Status | | + + + | Hoahaoism Affiliation | Unknown | + + + | Race | White | + + + | Ethnic Group | Not or | + + + Author + + + | Author | [facility] | | | and [place] | + + + | Organization | [facility] | | | and [place] | + + + | Address | Unknown | + + + | Phone | Unavailable | + + + Support + + + + + | Name | Relationship | Address | Phone | + + + + + | Lucrecia Zabala | ECON | [place] | | | | | [address] | | + + + + + | Daysi Shafer | ECON | [address] | | | | | [place] [address] | | + + + + + Care Team Providers + +------+ + | Care Computer System Technician Name | Role | Phone | + +------+ + PCP | Unavailable | + +------+ + Encounter Details +--------+ + + + + | Date | Type | Department | Care Team | Description | +--------+ + + + + | 12/09/ | Hospital | [facility] | RennyyaimavirgilioMaximiliano woodward | | | 2009 - | Encounter | MED CTR OP REHAB | MD Annia [address] | | | | | [address] | [place] | | | 12/10/ | | [facility] [place] [address] | [address] | | | 2009 | | [phone] | | | +--------+ + + + [...]
--- OUTSIDE RECORDS SUMMARY | ~2019-12-25 | XMS | Encounter Summary ---
Demographics + + + | Address | [address] | | | [place] [address] | + + + | Home Phone | | + + + | Preferred Language | Unknown | + + + | Marital Status | | + + + | Protestant Affiliation | Unknown | + + + | Race | White | + + + | Ethnic Group | Not or | + + + Author + + + | Author | [facility] | | | and [place] | + + + | Organization | [facility] | | | and [place] | + + + | Address | Unknown | + + + | Phone | Unavailable | + + + Support + + + + + | Name | Relationship | Address | Phone | + + + + + | Lucrecia Z[place]ala | ECON | [place] | | | | | [address] | | + + + + + | Daysi Shafer | ECON | [address] | | | | | [place] [address] | | + + + + + Care Team Providers + +------+ + | Care Elementary Reading Tutor Name | Role | Phone | + +------+ + PCP | Unavailable | + +------+ + Encounter Details +--------+ + + + + | Date | Type | Department | Care Team | Description | +--------+ + + + + | 07/20/ | Hospital | [facility] | Jaqui Hayes | | | 2009 | Encounter | MED CTR EMERGENCY | MD Todd [address] | | | | | CENTER [address] | [facility], | | | | | [place], [place] | [place] [address] | | | | | [address] | [phone] | | | | | [phone] | | | +--------+ + + + [...]
--- OUTSIDE RECORDS SUMMARY | ~2019-12-25 | XMS | Encounter Summary ---
Demographics + + + | Address | [address] | | | [place] [address] | + + + | Home Phone | | + + + | Preferred Language | Unknown | + + + | Marital Status | | + + + | Lutheran Affiliation | Unknown | + + + | Race | White | + + + | Ethnic Group | Not or | + + + Author + + + | Author | [facility] | | | and [...] [place], [place] | | | | | [address] | | + + + + + | Daysi Shafer | ECON | [address] | | | | | [place] [address] | | + + + + + Care Team Providers + +------+ + | Care Finance Assistant Name | Role | Phone | + +------+ + | Lydia Simpson PA-C | PCP | | + +------+ + Reason for Visit +--------+--------+ + | Reason | Onset | Comments | | | Date | | +--------+--------+ + | Other | 05/23/ | | | | 2012 | | +--------+--------+ + Encounter Details +--------+ + + + + | Date | Type | Department | Care Team | Description | +--------+ + + + + | 05/23/ | Telephone | [facility] | Maximiliano Macias | Other | | 2012 | | PHYSIATRY [address] | | | | | [address] [facility] [address] | [place], [place] | | | | | [place], [place] | [address] | | | | | [address] | | | | | | [phone] | | | +--------+ + + + [...] Notes Telephone Encounter - Chayito Cisse - 05/23/2012 4:59 PM PDTLeft message for patient malick o call our office. Needing to get him scheduled for the MRI Thoracic spine that was approved . documented in this enco unter Plan of Treatment Not on filedocumented as of this encounter Visit Diagnoses Not on filedocumented in this encounter"
--- OUTSIDE RECORDS SUMMARY | ~2019-12-25 | XMS | Clinical Summary ---
Demographics + + + | Address | [address] | | | [place] [address] | + + + | Home Phone | | + + + | Preferred Language | Unknown | + + + | Marital Status | | + + + | Denominational Affiliation | Unknown | + + + | Race | White | + + + | Ethnic Group | Not or | + + + Author + + + | Author | [facility] | | | [...] [place] | | | | | [address] | | + + + + + | Daysi Shafer | ECON | [address] | | | | | [place] [address] | | + + + + + Care Team Providers + +------+ + | Care Direct Chill Caster Name | Role | Phone | + +------+ + | Mariella Doctor | PCP | | + +------+ + Allergies No Known Allergies Medications + + + +---------+------+------+-------+ | Medication | Sig | Dispensed | Refills | Star | End | Statu | | | | | | t | Date | s | | | | | | Date | | | + + + +---------+------+------+-------+ | ibuprofen | Take 600 mg by mouth | | 0 | 11/11 | | Activ | | (ADVIL,MOTRIN) 600 | 3 times daily. | | | 05/30 | | e | | MG tablet | | | | 12 | | | + + + +---------+------+------+-------+ +---+ + | | Additional | | | InformationPatient | | | not taking. 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 Reported | | | on 07/29/2018 10:37 | | | AM | +---+ + + + +--------+---+------+---+-------+ | fluconazole | Take 1 tablet today | 2 | 0 | 02/0 | | Activ | | (DIFLUCAN) 150 mg | and 1 tablet on last | tablet | | 07/30 | | e | | tabletIndications: | day of antibiotics. | | | 19 | | | | Oral thrush | | | | | | | + + +--------+---+------+---+-------+ +---+ + | | Additional | | | InformationPatient | | | not taking. Reported | | | on 07/29/2018 10:37 | | | AM | +---+ + + + +--------+---+------+---+-------+ | clotrimazole | Slowly dissolve one | 70 | 0 | 02/0 | | Activ | | (CLOTRIMAZOLE) 10 mg | lozenge by mouth 5 | Bro | | 20 | | e | | bro | times a day | | | 19 | | | + + +--------+---+------+---+-------+ +---+ + | | Additional | | | InformationPatient | | | not taking. Reported | | | on 07/29/2018 10:37 | | | AM | +---+ + + + + +---+------+---+-------+ | | Take 10 mLs by mouth | 237 mL | 0 | 02/1 | | Activ | | dextromethorphan-gua | every 6 hours as | | | 620 | | e | | iFENesin | needed for Cough. | | | 20 | | | | (ROBITUSSIN-DM) | | | | | | | | 10-100 mg/5 mL | | | | | | | | liquid | | | | | | | + + + +---+------+---+-------+ | pseudoePHEDrine | Take 1 tablet by | 24 | 0 | 02/ | | Activ | | (SUDAFED CONGESTION) | mouth every 6 hours | tablet | | 6/20 | | e | | 30 mg tablet | as needed for | | | 20 | | | | | Congestion. | | | | | | + + + +---+------+---+-------+ Active Problems + + + | Problem | Noted Date | + + + | UNSPECIFIED DISORDER TEETHandSUPPORTING STRUCTURES | 11/11/2011 | + + + + + | Overview: ICD-10 Record update | + + + +---+ | THORACIC SPONDYLOSIS WITHOUT MYELOPATHY | | + +---+ | NECK PAIN | | + +---+ | BACK PAIN, THORACIC REGION | | + +---+ | THORACIC DISC DISPLACEMENT | | + +---+ Immunizations + + + + | Name | Administration Dates | Next Due | + + + + | INFLUENZA, | 03/12/2014 | | | UNSPECIFIED | | | | FORMULATION | | | + + + + | TDAP, (ADOL/ADULT) | 04/16/2012 | | + + + + Family History + + +------+ + | Medical History | Relation | Name | Comments | + + +------+ + | No known problems | Father | | | + + +------+ + | No known problems | Maternal | | | | | Grandfath | | | | | er | | | + + +------+ + | No known problems | Maternal | | | | | Grandmoth | | | | | er | | | + + +------+ + | Other (see comment) | Mother | | Lung problems | + + +------+ + | No known problems | Paternal | | | | | Grandfath | | | | | er | | | + + +------+ + | No known problems | Paternal | | | | | Grandmoth | | | | | er | | | + + +------+ + | Diabetes | Paternal | | | | | Uncle | | | + + +------+ + + +------+ + + | Relation | Name | Status | Comments | + +------+ + + | Father | | | | + +------+ + + | Maternal Grandfather | | | | + +------+ + + | Maternal Grandmother | | | | + +------+ + + | Mother | | | Lung problems | | | | (Age | | | | | 32) | | + +------+ + + | Paternal Grandfather | | | | + +------+ + + | Paternal Grandmother | | | | + +------+ + + | Paternal Uncle | | Alive | | + +------+ + + Social History + + + [...] on file | | + + + Last Filed Vital Signs + + + [...] | | + + + + + Plan of Treatment + + + + + | Health Maintenance | Due Date | Last | Comments | | | | Done | | + + + + + | Hepatitis C | | | | | Screening | 3 | | | + + + + + | Med Mgmt: BUN | | | | | | 3 | | | + + + + + | Med Mgmt: Cr | | | | | | 3 | | | + + + + + | Medication | | | | | Management | 3 | | | + + + + + | Vaccine: | | | | | Pneumococcal 19-64 | 9 | | | | (1 of 1 - PPSV23) | | | | + + + + + | Vaccine: Influenza | | 03/12/20 | | | (#1) | 0 | 14 | | + + + + + | Vaccine: | | 04/16/19 | | | Dtap/Tdap/Td (2 - | 3 | 13 | | | Td) | | | | + + + + + Results Not on filefrom Last 3 Months Insurance +--------+--------+ +--------+-------+---------+------+ | Payer | Benefi | Subscriber | Effect | Phone | Address | Type | | | t Plan | ID | giana | | | | | | / | | Dates | | | | | | Group | | | | | | +--------+--------+ +--------+-------+---------+------+ | ARMAS | ARMAS | [id number] | 09/11/19 | | | PPO | | | ADD | | 19-Pre | | | | | | CHOICE | | sent | | | | | | FRST | | | | | | | | HLTH | | | | | | +--------+--------+ +--------+-------+---------+------+ + +--------+ +--------+ + + | Guarantor Name | Accoun | Relation to | Date | Phone | Billing Address | | | t Type | Patient | of | | | | | | | | | | + +--------+ +--------+ + + | Angel Shafer | Person | Self | [birth year] | [address] | | Jr. | al/Fam | | 1981 | [phone] | [place] [address] | | | deepti | | | 5 (Home) | | + +--------+ +--------+ + + Advance Directives + + + + + | Type | Date Recorded | Patient | Explanation | | | | Medical Records Assistant | | + + + + + | Power of | | | | | Graphic Design Assistant | | | | + + + + + | Advance | 07/29/2018 10:25 | | | | Directive | AM | | | + + + + +
--- OUTSIDE RECORDS SUMMARY | ~2019-12-25 | XMS | Encounter Summary ---
Demographics + + + | Address | [address] | | | [place] [address] | + + + | Home Phone | | + + + | Preferred Language | Unknown | + + + | Marital Status | | + + + | Uatsdin Affiliation | Unknown | + + + | Race | White | + + + | Ethnic Group | Not or | + + + Author + + + | Author | [facility] | | | and [place] [...] [place] | | | | | [address] | | + + + + + | Daysi Shafer | ECON | [address] | | | | | [place] [address] | | + + + + + Care Team Providers + +------+ + | Care Sales Outfitter Name | Role | Phone | + +------+ + PCP | Unavailable | + +------+ + Encounter Details +--------+ + + + + | Date | Type | Department | Care Team | Description | +--------+ + + + + | 01/16/ | Hospital | [facility] | | | | 2002 | Encounter | [facility] EM[facility] | | | | | | CENTER [address] | | | | | | [place] | | | | | | [address] | | | | | | [phone] | | | +--------+ + + + [...]
--- OUTSIDE RECORDS SUMMARY | ~2019-12-25 | XMS | Encounter Summary ---
Demographics + + + | Address | [address] | | | [place] [address] | + + + | Home Phone | | + + + | Preferred Language | Unknown | + + + | Marital Status | | + + + | Samaritan Affiliation | Unknown | + + + | Race | White | + + + | Ethnic Group | Not or | + + + Author + + + | Author | [facility] | | | and [place] | + + + | Organization | [facility] | | | and [place] | + + + | Address | Unknown | + + + | Phone | Unavailable | + + + Support + + + + + | Name | Relationship | Address | Phone | + + + + + | Lucrecia Zabala | ECON | [place] | | | | | [address] | | + + + + + | Daysi Shafer | ECON | [address] | | | | | [place] [address] | | + + + + + Care Team Providers + +------+ + | Care Human Factors Engineer Name | Role | Phone | + +------+ + PCP | Unavailable | + +------+ + Encounter Details +--------+ + + + + | Date | Type | Department | Care Team | Description | +--------+ + + + + | 10/18/ | Hospital | [facility] | Jaqui Hayes | | | 2010 | Encounter | MED CTR EMERGENCY | MD Todd [address] | | | | | CENTER [address] | [facility], | | | | | [place], [place] | [place] [address] | | | | | [address] | [phone] | | | | | [phone] | | | +--------+ + + + [...] encounter ED Notes Jaqui Hayes MD - 10/18/2010 12:57 AM PDTDATE: 10/18/2010 PRIMARY CARE: Lydia Nelson at the [facility] CHIEF COMPLAINT: Dental pain. HISTORY OF PRESENT ILLNESS: This is a 30-year-old male who comes ambulatory to the [facility] ent. The patient has multiple carious and eroded teeth. He complains of pain of the left mandible wor sening over the last 24 hours so he came in for evaluation. He has be en referred to an oral surgeon b ut he was not able to afford the cost. PAST MEDICAL HISTORY: Previous appendectomy, GERD. MEDICATIONS: His records indicate he took something earlier but not specifically by name. REVIEW OF SYSTEMS: He has not had any facial swelling. PHYSICAL EXAMINATION VITAL SIGNS: Temperature 95.8, respirations 20, heart rate 108, blood pressure 130/82, O2 saturation 97% on room air. GENERAL: A well-appearing male. SKIN: Warm, dry. HEENT: There is no facial erythema or induration. Oral exam: He is fully able to open his mouth. The re is no trismus. Floor of the mouth is soft. There are multiple carious and ero ded teeth, #20, 19, 1 8, and I believe 17 as well. There are definite gingival inflammatory change. There is no prema purul ence. EMERGENCY DEPARTMENT COURSE: The patient was offered and given a dental block with bupivac bassem. He w ill be given some pen VK and Colliers out of our night stock and a total of 20 anni tional Colliers as well as 5 more days of penicillin. He was given a handout on definitive car e. IMPRESSION: DENTAL PAIN, EARLY ODONTOGENIC ABSCESS. DICTATED BY: Jaqui Hayes MD Emergency Medicine JOB #: [id number] EXT JOB #:[id number] <Electronicall y Signed by Jaqui Hayes MD> 12/15/10 1600 documented in this encounter Plan of Treatment Not on filedocumented as of this encounter Visit Diagnoses Not on filedocumented in this encounter"
--- OUTSIDE RECORDS SUMMARY | ~2019-12-25 | XMS | Encounter Summary ---
Demographics + + + | Address | [address] | | | [place] [address] | + + + | Home Phone | | + + + | Preferred Language | Unknown | + + + | Marital Status | | + + + | Baptist Affiliation | Unknown | + + + | Race | White | + + + | Ethnic Group | Not or | + + + Author + + + | Author | [facility] | | | and [place] | + + + | Organization | [facility] | | | and [place] | + + + | Address | Unknown | + + + | Phone | Unavailable | + + + Support + + + + + | Name | Relationship | Address | Phone | + + + + + | Lucrecia Zabala | ECON | [place] | | | | | [address] | | + + + + + | Daysi Shafer | ECON | [address] | | | | | [place] [address] | | + + + + + Care Team Providers + +------+ + | Care Professor Of Journalism Name | Role | Phone | + +------+ + PCP | Unavailable | + +------+ + Encounter Details +--------+ + + + + | Date | Type | Department | Care Team | Description | +--------+ + + + + | 11/22/ | Abstract | [facility] | DATA MIGRATION TEJINDER | | | 2011 | | Conversion Location | SR | | | | | [address] [facility] | | | | | | [place], [place] | | | | | | [address] | | | | | | [phone] | | | +--------+ + + + [...] + | Blood Pressure | 140/80 | 11/11/2011 12:00 AM | | | | | PDT | | + + + + + | Pulse | - | - | | + + + + + | Temperature | - | - | | + + + + + | Respiratory Rate | - | - | | + + + + + | Oxygen Saturation | - | - | | + + + + + | Inhaled Oxygen | - | - | | | Concentration | | | | + + + + + | Weight | 86.2 kg (190 lb) | 11/11/2011 12:00 AM | | | | | PDT | | + + + + + | Height | 163.8 cm (5' 4.5") | 10/22/2009 12:00 AM | | | | | PDT | | + + + + + | Body Mass Index | 32.11 | 10/22/2009 12:00 AM | | | | | PDT | | + + + + + documented in this encounter Plan of Treatment Not on filedocumented as of this encounter Visit Diagnoses Not on filedocumented in this encounter
--- OUTSIDE RECORDS SUMMARY | ~2019-12-25 | XMS | Encounter Summary ---
Demographics + + + | Address | [address] | | | [place] [address] | + + + | Home Phone | | + + + | Preferred Language | Unknown | + + + | Marital Status | | + + + | Christianity Affiliation | Unknown | + + + | Race | White | + + + | Ethnic Group | Not or | + + + Author + + + | Author | [facility] | | | and [place] | + + + | Organization | [facility] | | | and [place] | + + + | Address | Unknown | + + + | Phone | Unavailable | + + + Support + + + + + | Name | Relationship | Address | Phone | + + + + + | Lucrecia Zabala | ECON | [place] | | | | | [address] | | + + + + + | Daysi Shafer | ECON | [address] | | | | | [place] [address] | | + + + + + Care Team Providers + +------+ + | Care Rate Quoting Operator Name | Role | Phone | + +------+ + PCP | Unavailable | + +------+ + Encounter Details +--------+ + + + + | Date | Type | Department | Care Team | Description | +--------+ + + + + | 08/03/ | Hospital | [facility] | | | | 2011 | Encounter | MED CTR EMERGENCY | | | | | | CENTER [address] | | | | | | [place] | | | | | | [address] | | | | | | [phone] | | | +--------+ + + + [...]
--- OUTSIDE RECORDS SUMMARY | ~2019-12-25 | XMS | Encounter Summary ---
Demographics + + + | Address | [address] | | | [place] [address] | + + + | Home Phone | | + + + | Preferred Language | Unknown | + + + | Marital Status | | + + + | Shinto Affiliation | Unknown | + + + | Race | White | + + + | Ethnic Group | Not or | + + + Author + + + | Author | [facility] | | | and [place] | + + + | Organization | [facility] | | | and [place] | + + + | Address | Unknown | + + + | Phone | Unavailable | + + + Support + + + + + | Name | Relationship | Address | Phone | + + + + + | Lucrecia Zabala | ECON | [place] | | | | | [address] | | + + + + + | Daysi Shafer | ECON | [address] | | | | | [place] [address] | | + + + + + Care Team Providers + +------+ + | Care It Quality Assurance Analyst Name | Role | Phone | + +------+ + PCP | Unavailable | + +------+ + Encounter Details +--------+ + + + + | Date | Type | Department | Care Team | Description | +--------+ + + + + | 09/28/ | Hospital | [facility] | | | | 2009 | Encounter | MED CTR XRAY [address] | | | | | | [place] | | | | | | [place] [address] | | | | | | [phone] | | | +--------+ + + + [...]
--- OUTSIDE RECORDS SUMMARY | ~2019-12-25 | XMS | Encounter Summary ---
Demographics + + + | Address | [address] | | | [place] [address] | + + + | Home Phone | | + + + | Preferred Language | Unknown | + + + | Marital Status | | + + + | Adventist Affiliation | Unknown | + + + | Race | White | + + + | Ethnic Group | Not or | + + + Author + + + | Author | [facility] | | | and [place] | + + + | Organization | [facility] | | | and [place] | + + + | Address | Unknown | + + + | Phone | Unavailable | + + + Support + + + + + | Name | Relationship | Address | Phone | + + + + + | Lucrecia Zabala | ECON | [place] | | | | | [address] | | + + + + + | Daysi Shafer | ECON | [address] | | | | | [place] [address] | | + + + + + Care Team Providers + +------+ + | Care Trailer Steerer Name | Role | Phone | + +------+ + | Lydia Simpson PA-C | PCP | | + +------+ + Encounter Details +--------+ + + + + | Date | Type | Department | Care Team | Description | +--------+ + + + + | 06/06/ | Hospital | [facility] | Byron Pryor | | | 2012 - | Encounter | MED CTR XRAY [address] | MD [place] [address] | | | | | [place] | [address] [place] | | | 06/08/ | | [place] [address] | [place] [address] | | | 2012 | | [phone] | [phone] | | | | | | | [...] + + | US SCROTUM AND | Routin | 06/06/2012 | | Results for this | | TESTICLES | e | 10:27 AM | | procedure are in the | | | | PDT | | results section. | + +--------+ + + + documented in this encounter Results US Scrotum And Testicles (06/06/2012 10:27 AM PDT) + + | Specimen | + + | | + + + + + | Narrative | Performed At | + + + | [facility] | [place] | | Department [address] | [facility] | | [ rep [address]] [ rep [facility] | | [facility]] Signed | - IMAGING | | | | | Patient Name: SORAYAANURADHA Coco BARRY | | | Physician: BARRON : 1980 Age: 32 Sex: M Unit | | | #: [id number] Exam Date: 06/06/12 Location: | | | [facility] Report #: [id number] Page: | | | %(RAD)RES..mtdd.print.filter("pg") of %(RAD) | | | RES..mtdd.print.filter("tpg") | | | | | | Accession Number: [id number] | | | ULTRASOUND OF THE SCROTUM CLINICAL HISTORY: LEFT SCROTAL | | | PAIN. COMPARISON: None. PROTOCOL: Ultrasound | | | images of the scrotum. FINDINGS: The right testicle is | | | 4.4 x 1.9 x 2.8 cm. The parenchyma is normal. There is a tiny | | | hypoechoic structure with vascular flow, consistent with a blood | | | vessel. There is normal color flow to the testicle. The right | | | epididymis is normal with normal color flow. There is minimal | | | hydrocele. The left testicle is 4.3 x 2.3 x 2.8 cm. The | | | parenchyma is normal. There is normal color flow. The left | | | epididymis is normal with normal color flow. Mild left hydrocele is | | | seen. A few veins are observed in the lateral and posterior aspects | | | of the scrotum which do not show impressive Valsalva response. | | | IMPRESSION: 1. NO EVIDENCE FOR LEFT TESTICULAR TORSION, | | | NORMAL RIGHT TESTICLE. 2. MINIMAL RIGHT, MILD LEFT | | | HYDROCELES. 3. A FEW VEINS IN THE LATERAL AND POSTERIOR | | | ASPECT OF THE LEFT SCROTUM THAT DO NOT SHOW IMPRESSIVE VALSALVA | | | RESPONSES. Dictated Date/Time: 06/06/2012 10:27 | | | Transcribed Date/Time: 06/06/2012 11:55 Incinerator Attendant: | | | <<Signature on File>> | | | Kin | | | MD Jimmy06/06/12 1329 <Electronically signed by Kin Marquez MD> | | | Kin Marquez MD 06/06/12 1027 Incinerator Attendant: [employer] | | | [id number]/27/13 1155 Byron Pryor MD | | | | | + + + + + + + + | Performing | Address | City/State/Zipcode | Phone Number | | Organization | | | | + + + + + | [facility] | [address] | [place] | [phone] | | [facility] | | [address] | | | - IMAGING | | | | + + + + + documented in this encounter Visit Diagnoses Not on filedocumented in this encounter
--- OUTSIDE RECORDS SUMMARY | ~2019-12-25 | XMS | Encounter Summary ---
Demographics + + + | Address | [address] [facility] | | | [place] [address] | + + + | Home Phone | | + + + | Preferred Language | Unknown | + + + | Marital Status | | + + + | Baptism Affiliation | Unknown | + + + | Race | White | + + + | Ethnic Group | Not or | + + + Author + + + | Author | [facility] | | | and [place] | + + + | Organization | [facility] | | | and [place] | + + + | Address | Unknown | + + + | Phone | Unavailable | + + + Support + + + + + | Name | Relationship | Address | Phone | + + + + + | Lucrecia Zabala | ECON | [place] | | | | | [address] | | + + + + + | Daysi Lira | ECON | [address] | | | | | [place] [address] | | + + + + + Care Team Providers + +------+ + | Care Industry Analyst Name | Role | Phone | + +------+ + PCP | Unavailable | + +------+ + Encounter Details +--------+ + + + + | Date | Type | Department | Care Team | Description | +--------+ + + + + | 03/13/ | Hospital | [facility] | Byron Pryor | | | 2012 | Encounter | MED CTR EMERGENCY | MD [address] | | | | | [place] [address] | [facility] | | | | | [place], [place] | [place] [address] | | | | | [address] | [phone] | | | | | [phone] | | | +--------+ + + + [...] as of this encounter ED Notes Byron Pyror MD - 03/13/2012 6:36 AM [facility] [place] [address] Patient Name: ANURADHA LIRA Provider: Unit #: [id number] Location: : 1980 DATE: 03/13/2012 TIME OF EXAM: 06. REASON FOR PRESENTATION: Sore throat. HISTORY OF PRESENT ILLNESS: The patient is a 31-year-old male who presents with chief comp laint of sore throat. He feels like he is having acid reflux. He has had acid reflux proble ms in the past. Describes the pain as burning, coming up into his throat with a bad taste. He is not running fever. He is not been nauseated. He has not actually vomited. No diarrhea or constipation. No dysuria, hematuria , flank pain. He has not noted any bloody stools or dark tarry stools. No other symptoms or complaints. PAST MEDICAL HISTORY: Gastroesophageal reflux disease. FAMILY HISTORY: Noncontributory. SOCIAL HISTORY: No alcohol, drug, or tobacco use. MEDICATIONS 1. Amoxicillin. 2. Hydrocodone/acetaminophen. 3. Tramadol. 4. Mylanta type medication for reflux. ALLERGIES: NONE. REVIEW OF SYSTEMS As noted in HPI. PHYSICAL EXAMINATION VITAL SIGNS: Blood pressure 127/88, heart rate 84, respiratory rate 12, temperature 98.6, oxygen saturation 97%. GENERAL: Nontoxic appearing, no acute distress. HEENT: Normocephalic. Oropharynx moist and patent. No erythema, exudate or swelling. NECK: Supple. No meningismus. HEART: Regular. No murmurs, gallops, or rubs. LUNGS: Clear, symmetric, good air movement. ABDOMEN: Soft, nontender to palpation. No rebound, guarding, or palpable mass. SKIN: Intact without rash, lesions. NEUROLOGIC: The patient is alert, oriented, appropriate, ambulatory in the emergency depar tment without difficulty. DISCUSSION: The patient here with symptoms consistent with gastric reflux. Will treat with GI cocktail and provide him prescription for Prilosec. He is to return here if symptoms ch marisela or worsen or if new symptoms develop. DIAGNOSIS GASTRIC REFLUX. PLAN: As above. DICTATED BY: Byron Pryor MD Emergency Medicine JOB #: [id number] EXT JOB #:[id number] <<Signature on File>> Byron Pryor MD03/18/12 5420 < documented in this encounter Plan of Treatment Not on filedocumented as of this encounter Visit Diagnoses Not on filedocumented in this encounter"
--- OUTSIDE RECORDS SUMMARY | ~2019-12-25 | XMS | Encounter Summary ---
Demographics + + + | Address | [address] [facility] [facility] | | | [place] [address] | + + + | Home Phone [...] Author + + + | Author | [facility] | | | and [place] | + + + | Organization | [facility] | | | and [place] | + + + | Address | Unknown | + + + | Phone | Unavailable | + + + Support + + + + + | Name | Relationship | Address | Phone | + + + + + | Lucrecia Zabala | ECON | [place] | | | | | [address] | | + + + + + | Dayis Shafer | ECON | [address] | | | | | [place] [address] | | + + + + + Care Team Providers + +------+ + | Care Straightedge Worker Name | Role | Phone | + +------+ + | Unknown, Doctor | PCP | | + +------+ + Reason for Referral Evaluate & Treat (Routine) +--------+ + + + + + | Status | Reason | Specialty | Diagnoses / | Referred By | Referred To | | | | | Procedures | Contact | Contact | +--------+ + + + + + | Closed | Specialty | Physical | Diagnoses | Cabrales, | Dipesh Cabrales | | | Services | Medicine and | Numbness | Dipesh Pace MD | Chilo Pace MD [address] | | | Required | Rehabilitatio | and tingling | [address] | | | | n | in left | [address] | [place], | | | | | hand Left | [place], | [place] [address] | | | | | hand | [place] [address] | Phone: | | | | | weakness | Phone: | [phone] | | | | | Left hand | [phone] | Fax: | | | | | pain | Fax: | [phone] | | | | | Procedures | [phone] | | | | | | DOS 01/25/17 | | | +--------+ + + + + + Reason for Visit + + + | Reason | Comments | + + + | Numbness | left hand | + + + | Carpal Tunnel | post op one month carpal tunnel release | + + + Evaluate & Treat (Routine) +--------+ + + [...] Rehabilitatio | tunnel | Need | [address] | | | | n | syndrome of | updated | [place], | | | | | left wrist | address | [place] [address] | | | | | | | Phone: | | | | | | | [phone] | | | | | | | Fax: | | | | | | | [phone] | +--------+ + + + + + Encounter Details +--------+---------+ + + + | Date | Type | Department | Care Team | Description | +--------+---------+ + + + | 12/23/ | Office | [facility] | Dipesh Cabrales, | Numbness and | | 2017 | Visit | PHYSIATRY [address] | MD [address] | tingling in left | | | | [address] | [place] | hand (Primary Dx); | | | | [place] | [id number] | Left hand weakness; | | | | [address] | | Left hand pain; | | | | [phone] | | History of carpal | | | | | | tunnel surgery of | | | | | | right wrist; | | | | | | Crushing injury of | | | | | | right elbow, | | | | | | subsequent | | | | | | encounter; Family | | | | | | history of diabetes | | | | | | mellitus | +--------+---------+ + + + Social History [...] + + + | Blood Pressure | 136/92 | 12/23/2016 10:55 AM | | | | | PDT | | + + + + + | Pulse | 70 | 12/23/2016 10:55 AM | | | | | PDT | | + + + + + | Temperature | - | - | | + + + + + | Respiratory Rate | 18 | 12/23/2016 10:55 AM | | | | | PDT | | + + + + + | Oxygen Saturation | - | - | | + + + + + | Inhaled Oxygen | - | - | | | Concentration | | | | + + + + + | Weight | 99.8 kg (220 lb) | 12/23/2016 10:55 AM | | | | | PDT | | + + + + + | Height | 165.1 cm (5' 5") | 12/23/2016 10:55 AM | | | | | PDT | | + + + + + | Body Mass Index | 36.61 | 12/23/2016 10:55 AM | | | | | PDT | | + + + + + documented in this encounter Patient Instructions Patient Instructions Mariama Griffin RN - 12/23/2016 8:20 AM PDTPurchase and wear carpal tunnel wrist splints. Wear them at night, only at night, every night, never during waking hours. Make sure they are not too tight. They only need to prevent the wrists from bending during sleep. Please attend your scheduled nerve conduction study and EMG appointment. Nerve conduction studies and EMG require a great deal of time to complete. If you will be unable to make your appointment please contact the clinic at least one full business day alida or to your appointment . Missed appoints without cancellation will only be re scheduled once. Children under the age of 13 are not permitted in the room during the nerve study. If acco mpanied by children under the age of 13, they will need an adult to supervise them, while ey wait in the lobby. Prior to your appointment wash the skin with soap and water. This is to remove any of the natural oils on the skin which may interfere with the completion of the study. Please do not wear any lotion prior to the study as lotion may also interfere with the comp letion of the study. When attending your study please bring appropriate attire. If you are having a study of th e upper extremities please bring a short sleeve shirt to wear during the study. If you are having a study of the lower extremities please bring shorts to wear during the study. At the time of your study, please remind the physician if you are taking any blood thinning medications such as Coumadin, or heparin. At the time of your study, please remind the physician if you have an implanted electronic device such as a pacemaker. documented in this encounter Progress Notes Dipesh Cabrales MD - 12/23/2016 8:20 AM PDTFormatting of this note might be different fro m the original. Physical Medicine & Rehabilitation Consult Referring Provider: Rere Santizo MD Date of Service: 12/23/16 Patient ID: Angel Shafer Jr. is a 36 y.o. male with left hand numbness, history of right sided carpal tunnel post op one month. HPI Angel Shafer Jr. reports that he started having numbness in the left upper extremit y, in June of 2016. He reports left hand symptoms started after starting increased use of the left hand using a air drill while at work. Angel Shafer Jr. reports having to us e his left hand due to a right elbow crush injury and right carpal tunnel syndrome. Angel Shafer Jr. is right handed. Angel Shafer Jr. is one month post op from a right carpal tunnel surgical release with Dr. Freitas. His symptoms have been improving overtime s jada being off of work, but he still continues to have symptoms. Angel Shafer Jr. denies neck pain. He report that his pain is not associated with his upper extremity symptoms. He rate his neck pain as 0 on a numerical pain scale. His upper extremity numbness is intermittent, occurring about every several times daily, an d lasting 10-15 seconds per episode. His upper extremity numbness is strongest over the first, second, and third fingers. His upper extremity numbness is exacerbated by: use of air drill, sleep, driving, talking on the phone, all activity and gripping. His upper extremity numbness is reduced by: rest, shaking hands and changing activity. His numbness does not wake him from sleep. Angel Shafer Jr. denies weakness. He denies dropping objects. Angel Shafer Jr. denies taking blood thinning medications such as Coumadin or hepar in. He denies having implanted electronic device such as a pacemaker. He denies a history of diabetes. Angel Shafer Jr. reports a family history of diabe angelica. He denies a history of thyroid disease. He denies a history of rheumatoid arthritis. He denies a history of chemical exposure. He denies a history of frequent alcohol consumption. Angel Shafer Jr. reports that they have had previous nerve conduction study. Past Medical History Past Medical History: Diagnosis Date Back pain, thoracic Carpal tunnel syndrome on left Disc displacement, thoracic Numbness of left hand Thoracic spondylosis without myelopathy Past Surgical History Past Surgical History: Procedure Laterality Date APPENDECTOMY CARPAL TUNNEL RELEASE Right Dr. Kaur; [facility] [place]. Family History: Family History Problem Relation Age of Onset Other (see comment) Mother Lung problems No Known Problems Father No Known Problems Maternal Grandmother No Known Problems Maternal Grandfather No Known Problems Paternal Grandmother No Known Problems Paternal Grandfather Diabetes Paternal Uncle Social History: Social History Social History Marital status: Spouse name: Daysi Shafer Number of children: 5 Years of education: N/A Occupational History [employer] Social History Main Topics Smoking status: Current Every Day Smoker Packs/day: 0.50 Years: 15.00 Types: Cigarettes Smokeless tobacco: Never Used Alcohol use Yes Comment: Rare Drug use: No Comment: In past Sexual activity: Yes Other Topics Concern Not on file Social History Narrative No narrative on file Allergies: No Known Allergies Medications: Outpatient Encounter Prescriptions as of 12/23/2016 Medication Sig Dispense Refill ibuprofen (ADVIL,MOTRIN) 600 MG tablet Take 600 mg by mouth 3 times daily. meloxicam (MOBIC) 15 mg tablet Take 15 mg by mouth Daily. No facility-administered encounter medications on file as of 12/23/2016. Review of Systems: Review of Systems Constitutional: Negative for chills, diaphoresis, fever, malaise/fatigue and weight loss. HENT: Negative for congestion, ear discharge, ear pain, hearing loss, nosebleeds, sinus elaine n, sore throat and tinnitus. Eyes: Negative for blurred vision, double vision, photophobia, pain, discharge and redness. Glasses Respiratory: Negative for cough, hemoptysis, sputum production, shortness of breath, wheezi ng and stridor. Cardiovascular: Negative for chest pain, palpitations, orthopnea, claudication, leg swellin g and PND. Gastrointestinal: Negative for abdominal pain, blood in stool, constipation, diarrhea, hear tburn, melena, nausea and vomiting. Genitourinary: Negative for dysuria, flank pain, frequency, hematuria and urgency. Musculoskeletal: Negative for back pain, falls, joint pain, myalgias and neck pain. Hand pain Skin: Negative for itching and rash. Neurological: Positive for tingling. Negative for dizziness, tremors, sensory change, speec h change, focal weakness, seizures, loss of consciousness, weakness and headaches. Endo/Heme/Allergies: Negative for environmental allergies and polydipsia. Does not bruise/b leed easily. Psychiatric/Behavioral: Negative for depression, hallucinations, memory loss, substance abu se and suicidal ideas. The patient is not nervous/anxious and does not have insomnia. Vitals: 12/23/16 1055 BP: (!) 136/92 Pulse: 70 Resp: 18 Objective Physical Exam: General Appearance: Alert and Oriented to person, place, time and situation, no distress. Limited examination of right upper extremity due to right elbow crush injury and recent rig ht carpal tunnel release HEENT: PERRL, conjunctiva clear, no scleral icterus, EOM's intact Neck: No tenderness to cervical paraspinal muscles, normal ROM Heart: Regular Rate and Rhythm Lungs: No audible wheezing or crackles. Abdomen: Soft, non-tender, non-distended Back: Symmetric Extremities: No clubbing, cyanosis or edema in all four extremities Skin Carpal tunnel scar to Neurological: Cranial Nerves: Grossly Intact Speech: Normal Sensory: Intact to light touch and pin prick in all four extremities. hyperesthesic to righ t hand Motor: Normal 5/5 strength in left upper extremity including biceps, triceps, wrist dorsiflexion, and finger abduction. Hand guest services officer. 4-/5 to right and 4/5 left. 4/5 wrist dorsiflexion on the right. 4-/5 right biceps* inhibition due to pain, and NT right triceps Reflexes: 2+ normal and symmetric over the brachioradialis of both upper extremities. Right biceps 1+ , left biceps 2+ Tinel's test positive over the median nerve at left wrists. NT on the right*p/o carpal tunn el release Database: No imaging to review at this time. Assessment 1. Numbness and tingling in left hand 2. Left hand weakness 3. Left hand pain 4. History of carpal tunnel surgery of right wrist 5. Crushing injury of right elbow, subsequent encounter 6. Family history of diabetes mellitus Plan 1. The differential diagnosis for Angel Shafer Jr.'s symptoms included, but are no t limited to: left carpal tunnel syndrome. Angel Shafer Jr.'s clinical presentatio n is most consistent with left carpal tunnel syndrome. 2.Today we reviewed that the nerve study will hopefully help us localize the origin of symp toms. We discussed that if carpal tunnel syndrome is discovered, that the nerve study can h elp determine if the carpal tunnel syndrome is mild, moderate or severe. We discussed that if carpal tunnel is mild the treatments tend to be conservative such as antiinflammatories, hand therapy, wrist splints and sometimes steroid injection. We discussed that moderate and severe carpal tunnel syndrome generally require surgical release. We discussed that with s evere carpal tunnel syndrome there may be permanent damage to the nerve that does not resolv e despite adequate surgical release. We discussed natural progress of carpal tunnel syndrom e. We reviewed that carpal tunnel if left untreated, tends to get progressively worse over time. We discussed that if severe carpal tunnel syndrome is left untreated that the amount of permanent nerve damage can get worse leading to worse disability. Today we discussed how to prepare for nerve conduction study and EMG. We discussed not wea ring lotion and bringing a short sleeve shirt to wear. We discussed the process of the test , which involves small shocks to the nerves and that the study may include pin sticks, witho ut shock into the muscles. 3. Angel Shafer Jr. will have a 2 hour glucose competed to evaluate for evidence of diabetes, as this may contribute to the development of carpal tunnel syndrome. Today we re viewed the association between carpal tunnel syndrome and diabetes. Since he has had right CTS with release and now left sided symptoms, screening for diabetes is prudent. 4. Angel Shafer Jr. was advised to purchase and wear a left wrist carpal tunnel wri st splint. He was advised to wear it at night, only at night, every night, never during wak ing hours. He was advised to make sure it is not too tight, it only needs to prevent the wr ist from bending during sleep. 5. Angel Joseph Hollis AcevseDionte will be scheduled to return to the clinic for a left upper ext remity nerve conduction study to evaluate for the differential diagnosis above. Will plan to review lab results at this time. Thank you for allowing me to be involved in the care of your patient. If you have any ques tions regarding the care of your patient please don't hesitate to call. Approximately 45 minutes was spent face to face with Angel Shafer Jr., over half of which was spent formulating and discussing their medical treatment plan. I, Dipesh Cabrales MD personally performed the services described in this documentation, as scribed by in my presence, Mariama Griffin RN and are both accurate and complete. Dipesh Cabrales MD - 12/23/2016 documented in this en counter Plan of Treatment + +------+--------+ + + | Name | Type | Priori | Associated Diagnoses | Order Schedule | | | | ty | | | + +------+--------+ + + | Glucose Tolerance | Lab | Routin | Numbness and | 1 Occurrences | | Test, 2Hr | | e | tingling in left | starting 12/23/2016 | | | | | hand History Of | until 12/23/2017 | | | | | Carpal Tunnel | | | | | | Surgery Of Right | | | | | | Wrist | | + +------+--------+ + + + + +--------+ + + | Name | Type | Priori | Associated Diagnoses | Order Schedule | | | | ty | | | + + +--------+ + + | * [facility] [place] | Outpatient | Routin | Numbness and | Ordered: 12/23/2016 | | Physiatry - AMB | Referral | e | tingling in left | | | Referral | | | hand Left hand | | | | | | weakness Left hand | | | | | | pain | | + + +--------+ + + documented as of this encounter Visit Diagnoses + + | Diagnosis | + + | Numbness and tingling in left hand - Primary Disturbance of skin sensation | + + | Left hand weakness Muscle weakness (generalized) | + + | Left hand pain Pain in limb | + + | History of carpal tunnel surgery of right wrist | + + | Crushing injury of right elbow, subsequent encounter | + + | Family history of diabetes mellitus | + + documented in this encounter
--- OUTSIDE RECORDS SUMMARY | ~2019-12-25 | XMS | Encounter Summary ---
Demographics + + + | Address | [address] [facility] | | | [place] [address] | + + + | Home Phone | | + + + | Preferred Language | Unknown | + + + | Marital Status | | + + + | Uatsdin Affiliation | Unknown | + + + | Race | White | + + + | Ethnic Group | Not or | + + + Author + + + | Author | [facility] | | | and [place] | + + + | Organization | [facility] | | | and [place] | + + + | Address | Unknown | + + + | Phone | Unavailable | + + + Support + + + + + | Name | Relationship | Address | Phone | + + + + + | Lucrecia Zabala | ECON | [place] | | | | | [address] | | + + + + + | Daysi Shafer | ECON | [address] | | | | | [place] [address] | | + + + + + Care Team Providers + +------+ + | Care Social Service Director Name | Role | Phone | + +------+ + PCP | Unavailable | + +------+ + Encounter Details +--------+ + + + + | Date | Type | Department | Care Team | Description | +--------+ + + + + | 12/06/ | Hospital | [facility] | Brian Arias | | | 2002 | Encounter | [facility] | MD [address] | | | | | [place] [address] | [facility] | | | | | [place], [place] | [place] [address] | | | | | [address] | [phone] | | | | | [phone] | | | +--------+ + + + [...]
--- OUTSIDE RECORDS SUMMARY | ~2019-12-25 | XMS | Encounter Summary ---
Demographics + + + | Address | [address] [facility] | | | [place] [address] | + + + | Home Phone | | + + + | Preferred Language | Unknown | + + + | Marital Status | | + + + | Episcopalian Affiliation | Unknown | + + + | Race | White | + + + | Ethnic Group | Not or | + + + Author + + + | Author | [facility] | | | and [place] | + + + | Organization | [facility] | | | and [place] | + + + | Address | Unknown | + + + | Phone | Unavailable | + + + Support + + + + + | Name | Relationship | Address | Phone | + + + + + | Lucrecia [place]abala | ECON | [place] | | | | | [address] | | + + + + + | Daysi Shafer | ECON | [address] | | | | | [place] [address] | | + + + + + Care Team Providers + +------+ + | Care Spa Director/Finance Name | Role | Phone | + +------+ + | No, Physician | PCP | Unavailable | + +------+ + Reason for Visit +--------+--------+ + | Reason | Onset | Comments | | | Date | | +--------+--------+ + | Other | 09/23/ | Referral question | | | 2017 | | +--------+--------+ + Encounter Details +--------+ + + + + | Date | Type | Department | Care Team | Description | +--------+ + + + + | 09/23/ | [facility] | [facility] | Rere Santizo, | Other (Referral | | 2016 | | CARE [address] | Need updated | question) | | | | [place] | address | | | | | [address] | | | | | | [phone] | | | +--------+ + + + [...] this encounter Miscellaneous Notes Telephone Encounter - Rere Santizo MD - 09/26/2016 5:04 PM PDTIt doesn't really matter b/c they will see him for L wrist. Note says L wrist but Dean might have put R wrist b/c PSR put R. elephone E ramana - [place], Robyn Ziegler RN - 09/24/2016 8:00 AM PDTPatient states the referral indicted on his AVS indicates he is being referred for evaluation o his right wrist. He wishes to be certain the referral is for his left wrist. The ICD.9 code may need to be changed in the referral request.Robyn Childress RN documented in this enc ounter Plan of Treatment Not on filedocumented as of this encounter Visit Diagnoses Not on filedocumented in this encounter"
--- OUTSIDE RECORDS SUMMARY | ~2019-12-25 | XMS | Encounter Summary ---
Demographics + + + | Address | [address] | | | [place] [address] | + + + | Home Phone [...] + | Author | [facility] | | | and [place] | + + + | Organization | [facility] | | | and [place] | + + + | Address | Unknown | + + + | Phone | Unavailable | + + + Support + + + + + | Name | Relationship | Address | Phone | + + + + + | Lucrecia Zabala | ECON | [place] | | | | | [address] | | + + + + + | Daysi Shafer | ECON | [address] | | | | | [place] [address] | | + + + + + Care Team Providers + +------+ + | Care Technical Services Librarian Name | Role | Phone | + +------+ + PCP | Unavailable | + +------+ + Encounter Details +--------+ + + + + | Date | Type | Department | Care Team | Description | +--------+ + + + + | 08/13/ | Hospital | [facility] | Nam Vo, | | | 2010 | Encounter | MED CTR EMERGENCY | MD [address] | | | | | CENTER [address] | [place], [place] | | | | | [place], [place] | [address] | | | | | [address] | | | | | | [phone] | | | +--------+ + + + [...] documented as of this encounter ED Notes Nam Vo MD - 08/13/2010 3:32 AM PDTDATE: 08/13/2010 CHIEF COMPLAINT: Cough. HISTORY OF PRESENT ILLNESS: Angel is a 30-year-old male who states he has had a week of gr adually wo rsening cough. He was coughing a great deal tonight and was unable to sleep. He coughed up a couple s treaks of blood so he came to the ER for further evaluation. He said he thinks he has had fevers. He has had no nausea, no vomiting, no diarrhea. He denies bein g short of breath. He has never had any bl ood clots or risks for blood clots but said he j ust cannot seem to stop coughing. He states it was a couple streaks. There were no large ch unks or clots of blood. He has never had anything like this bef ore. He said he has also be en coughing up quite a bit of sputum. PAST MEDICAL HISTORY: Negative, except for chronic back pain. SOCIAL HISTORY: He smokes. REVIEW OF SYSTEMS: All systems reviewed were negative except as noted in the HPI. PHYSICAL EXAMINATION GENERAL: This is a 30-year-old male who is quite anxious. INITIAL VITALS: BP 142/98, pulse 88, respirations 18, temperature 96.5, saturations 96% on room air. HEENT: Pupils equally round and reactive to light. Mucous membranes are moist. Nasal passa ges are cl ear. Trachea is midline. CHEST: Lungs are clear to auscultation bilaterally. No rales. No wheezes. CARDIOVASCULAR: Rate and rhythm is regular. ABDOMEN: Nontender, nondistended. EXTREMITIES: No edema. SKIN: No rash. EMERGENCY DEPARTMENT COURSE AND STUDIES: He had a chest x-ray done. There is no evidence o f pneumoni a, pneumothorax, widened mediastinum, pleural effusion, mass, or other cause of his symptoms. ASSESSMENT: This is a 30-year-old male with an upper respiratory tract infection, most lik sharri an ear ly pneumonia with some mild hemoptysis. He has no evidence or reason to have TB. He was placed on Zit hromax and told to come back if it gets worse, otherwise to follow up with his regular doctor. DIAGNOSIS: EARLY PNEUMONIA AND HEMOPTYSIS. DISPOSITION: Home. DICTATED BY: Nam Vo M.D. Emergency Medicine JOB #: [id number] EXT JOB #:[id number] <Electronicall y Signed by Nam Vo MD> 08/22/10 0806 documented in this encounter Plan of Treatment Not on filedocumented as of this encounter Procedures + +--------+ + + + | Procedure Name | Priori | Date/Time | Associated Diagnosis | Comments | | | ty | | | | + +--------+ + + + | XR CHEST AP PORTABLE | | 08/13/2010 | | Results for this | | | | 3:32 AM | | procedure are in the | | | | PDT | | results section. | + +--------+ + + + documented in this encounter Results XR Chest AP Portable (08/13/2010 3:32 AM PDT) + + | Specimen | + + | | + + + + + | Narrative | Performed At | + + + | [facility] Diagnostic Imaging Department | [facility] | | [address] | [facility] | | CHEST PORTABLE, 08/13/2010 | DIAG IMG | | CLINICAL HISTORY: COUGH. COMPARISON: 12/06/2002 | | | FINDINGS: Frontal view of the chest by portable technique. Lungs | | | are clear. No pneumothorax. No l arge effusion. Cardiac | | | silhouette, given technique is not enlarged. Osseous structures are | | | unremark able. IMPRESSION: 1. NO ACUTE DISEASE. | | | Dictated Date/Time: 08/13/2010 09:19 Transcribed Date/Time: | | | 08/13/2010 12:01 Voice Teacher: <Electronically Signed | | | by Angel Wolf MD> 08/13/10 1742 | | + + + + + | Procedure Note | + + | Kuldeep, Rad Conversion - 04/19/2013 3:04 PM [facility] | | Diagnostic Imaging Department [address] [place] [address] | | CHEST PORTABLE, 08/13/2010 CLINICAL HISTORY: COUGH. | | COMPARISON: 12/06/2002 FINDINGS: Frontal view of the chest by portable technique. | | Lungs are clear. No pneumothorax. No large effusion. Cardiac silhouette, given | | technique is not enlarged. Osseous structures are unremarkable. IMPRESSION: 1. NO | | ACUTE DISEASE. Dictated Date/Time: 08/13/2010 09:19Transcribed Date/Time: 08/13/2010 | | 12:01Transcriptionist: <Electronically Signed by Angel Wolf MD> 08/13/10 | | 1742 | | | |COMPARISON: 12/06/2002 | | | |FINDINGS: Frontal view of the chest by portable technique. Lungs are clear. No pneumotho rax. No l | |arge effusion. Cardiac silhouette, given technique is not enlarged. Osseous structures ar e unremark | |able. | | | |IMPRESSION: | |1. NO ACUTE DISEASE. | | | |Dictated Date/Time: 08/13/2010 09:19 | |Transcribed Date/Time: 08/13/2010 12:01 | |Voice Teacher: | |<Electronically Signed by Angel Wolf MD> 08/13/10 1742 | + + + +---------+ + + | Performing | Address | City/State/Zipcode | Phone Number | | Organization | | | | + +---------+ + + | [facility] | | | | | [facility] | | | | + +---------+ + + documented in this encounter Visit Diagnoses Not on filedocumented in this encounter"
--- OUTSIDE RECORDS SUMMARY | ~2019-12-25 | XMS | Encounter Summary ---
Demographics + + + | Address | [address] | | | [place] [address] | + + + | Home Phone | | + + + | Preferred Language | Unknown | + + + | Marital Status | | + + + | Church Affiliation | Unknown | + + + | Race | White | + + + | Ethnic Group | Not or | + + + Author + + + | Author | [facility] | | | and [place] | + + + | Organization | [facility] | | | and [place] | + + + | Address | Unknown | + + + | Phone | Unavailable | + + + Support + + + + + | Name | Relationship | Address | Phone | + + + + + | Lucrecia Zabala | ECON | [place] | | | | | [address] | | + + + + + | Daysi Shafer | ECON | [address] | | | | | [place] [address] | | + + + + + Care Team Providers + +------+ + | Care Probate Clerk Name | Role | Phone | + +------+ + | No, Physician | PCP | Unavailable | + +------+ + Reason for Visit + + + | Reason | Comments | + + + | Oral Swelling | | + + + Encounter Details +--------+ + + + + | Date | Type | Department | Care Team | Description | +--------+ + + + + | 03/28/ | Emergency | [facility] | Jade Drew | Throat pain in adult | | 2016 | | MED CTR EMERGENCY | MD [address] [facility] | (Primary Dx) | | | | [place] [address] | [facility] | | | | | [place], [place] | [place] [address] | | | | | [address] | [phone] | | | | | [phone] | | | | | | | Byron Pryor | | | | | | MD Leon [address] | | | | | [facility] | | | | | | [place] [address] | | | | | | [phone] | | | | | | | [...] + + + | Blood Pressure | 140/72 | 03/28/2015 12:51 PM | | | | | PST | | + + + + + | Pulse | 87 | 03/28/2015 12:51 PM | | | | | PST | | + + + + + | Temperature | 37.5 C (99.5 F) | 03/28/2015 10:38 AM | | | | | PST | | + + + + + | Respiratory Rate | 16 | 03/28/2015 12:51 PM | | | | | PST | | + + + + + | Oxygen Saturation | 99% | 03/28/2015 10:38 AM | | | | | PST | | + + + + + | Inhaled Oxygen | - | - | | | Concentration | | | | + + + + + | Weight | 86.2 kg (190 lb) | 03/28/2015 10:38 AM | | | | | PST | | + + + + + | Height | 165.1 cm (5' 5") | 03/28/2015 10:38 AM | | | | | PST | | + + + + + | Body Mass Index | 31.62 | 03/28/2015 10:38 AM | | | | | PST | | + + + + + documented in this encounter Discharge Instructions Instructions Jade Drew MD - 03/28/2015Please keep yourself well-hydrated, use ibuprofen as needed for discomfort and drink cool liquids for comfort. Monitor your symptoms, and if the irritation does not seem to resolve in the next couple of days, please follow-up with referred ENT for further evaluation. If you find yourself having progressively shortness of breath, difficulty breathing, diffic ulty swallowing, or any other worrisome complaints then returning immediately to the emergen cy room for further evaluation. documented in this encounter Medications at Time of [...] documented as of this encounter ED Notes Jade Drew MD - 03/28/2015 11:01 AM PSTFormatting of this note might be differe nt from the original. [facility] Angel Shafer Jr. Emergency Department Encounter Note [address] [place] [address] PCP:No Physician on file [phone] CHIEF COMPLAINT: Oral Swelling ED Room: ED01/ED01 ED Triage Notes Thi Simpson RN 03/28/2015 10:40 Pt reports swelling in his throat for the past three days, still able to swallow food but s tates it feels very tight. Symptoms started after inhaling some sawdust. HPI Angel Shafer is a 35 y.o. male who presents to the Emergency Department, accompanied by h imself, with the above noted complaint(s). Patient states that he was working with some [employer] and inhaled some sawdust as a result of it. He reports excessive coughing at the time but no coughing currently. He states since then he has had gradually increasing tight sensatio n in his throat, with sensation of swelling. He states that it is not painful but it feels tight when he tries to swallow food or drink liquids. Patient states that he also feels lik e he is getting a little lightheaded feeling like his airway might be a little bit constrict ed. He states that he is not wheezing, not having any productive cough, no fevers. He carlos es any sick contacts. He denies any recent travels. PAST MEDICAL & SURGICAL HISTORY History reviewed. No pertinent past medical history. Past Surgical History Procedure Laterality Date Appendectomy CURRENT MEDICATIONS Discharge Medication List as of 03/28/2015 12:48 CONTINUE these medications which have NOT CHANGED Details amoxicillin (AMOXIL) 500 MG tablet one tablet twice daily for 10 days ibuprofen (ADVIL,MOTRIN) 600 MG tablet Take 600 mg by mouth 3 times daily. naproxen (NAPROSYN) 500 mg tablet Take 500 mg by mouth every 12 hours. traMADol (ULTRAM) 50 mg tablet 1-2 tablets by mouth three times daily as needed. Must last 30 days ALLERGIES No Known Allergies FAMILY AND SOCIAL HISTORY No family history on file. History Social History Marital Status: Spouse Name: N/A Number of Children: N/A Years of Education: N/A Social History Main Topics Smoking status: Current Every Day Smoker -- 0.50 packs/day Types: Cigarettes Smokeless tobacco: None Alcohol Use: Yes Drug Use: No Sexual Activity: None Other Topics Concern None Social History Narrative REVIEW OF SYSTEMS As in history of present illness. A 10 system review was otherwise negative. PHYSICAL EXAM VITAL SIGNS: (first vital signs):Temp: 37.5 C (99.5 F) Pulse: 87 Resp: 16 SpO2: 99 % BP : 144/84 mmHg General Appearance: male patient, well developed, well nourished, in no acute distress HEENT: Atraumatic, PERRL, EAC clear bilaterally. bilat TMs unremarkable, Nares clear with s cant mucopurulent rhinorrhea, Oropharynx benign with pink and moist mucous membranes. No ton sillar erythema, edema or exudates. Neck: Neck is supple with full range of motion, without lymphadenopathy or meningismus. Respiratory: Good inspiratory effort, nonlabored breathing, adequate chest excursion. No stridor noted. No wheezes or rales or rhonchi are appreciated on ausculation. Cardiovascular: Regular rate and rhythm. No murmurs, gallops or rubs appreciated on exam. Skin: Warm, dry, no rashes noted Neurologic: Alert & oriented. Cranial nerves II-XII grossly intact. No focal deficits. Spe ech normal. Psychiatric: Normal mood, normal affect. IMAGING STUIDES (X-Rays interpreted by ED Physician) Xr Neck Soft Tissue 03/28/2015 EXAM: XR NECK SOFT TISSUE dated 03/28/2015 12:00 AM HISTORY:ORAL SWELLING COMP ARISON: None. FINDINGS:Frontal and lateral views of the cervical soft tissues. No radiopaq ue foreign bodies. No precervical soft tissue thickening. Normal size and appearance of th e epiglottis. Grossly unremarkable osseous structures. IMPRESSION - No radiopaque foreign bodies. No plain film evidence for soft tissue abnormality. Note: Consider CT as warrante d for more sensitive evaluation of the cervical and paracervical soft tissues. Dictated and Signed by: Angel Wolf MD Electronically signed: 03/28/2015 12:18 PM Xr Chest Ap Portable 03/28/2015 EXAM: XR CHEST AP PORTABLE dated 03/28/2015 11:15 AM HISTORY: inhalation of saw dust Comparison: None. TECHNIQUE: A single portable view of the chest. FINDINGS: The lung s are symmetrically aerated. They are clear. There are no large pleural effusions. There is no pneumothorax. The cardiac and mediastinal contours are not enlarged. The visible oss eous structures are unremarkable. IMPRESSION - No acute disease. Dictated and Signed b y: Angel Wolf MD Electronically signed: 03/28/2015 12:17 PM ED COURSE & MEDICAL DECISION MAKING Pertinent Labs & Imaging studies were reviewed. See chart for details. (EMS notes and Nursi ng home records reviewed, if applicable.) Medications and Allergy list reviewed. Nurses note and old records were reviewed The patient was seen and examined, presenting with Oral Swelling Patient is a very pleasant 35-year-old male who inhaled or ingested some sawdust a few days ago while at work. He now presents with complaints of pain in his throat with some sensati on as if he is not able to breathe very well. He reports initial coughing spell after inhal ation, but denies any coughing spells at this time. He denies any active pain but some mild generalized discomfort. Physical examination was unremarkable, posterior oropharynx clear, vitals stable with normal pulse ox and normal respiratory rate. Chest examination was unre markable with no significant stridor, wheezing, rhonchi. Workup with chest x-ray as well as soft tissue neck is unremarkable, as noted above. Patient was offered medications for symp traci management, but patient declines as he reports no pain at this time. Meds ordered: None Reviewed results with patient. Advised patient of no significant physical exam findings. Advised of stable vitals including pulse ox and respiratory rate as well as blood pressure a nd pulse. Advised of no significant findings neck and chest x-ray. Advised treatment with the following: Close monitoring, appropriate fluid hydration, follow up for further evaluation with referred ENT, as noted below, if symptoms do not improve. Stress importance of close follow-up with regular provider for reevaluation, and further wo rkup as needed if symptoms do not improve or resolve. Patient has remained hemodynamically stable, maintaining adequate oxygen saturation without supplemental oxygen, and no respiratory distress with normal respiratory rate and normal bl ood pressure and pulse. Patient does exhibit a low-grade temp but is uncertain of its signi ficance as he is not exhibiting any productive cough or showing any radiographic abnormality . There is some concern for possible pneumonitis but again no radiographic findings on ches t x-ray at this time and appears relatively asymptomatic without any cough. Patient is disc harged home in good and stable condition. Last Set of Vital Signs: Temp: 37.5 C (99.5 F) Pulse: 87 Resp: 16 SpO2: 99 % BP: 140/72 mmHg FINAL IMPRESSION ICD-10-CM ICD-9-CM 1. Throat pain in adult R07.0 784.1 Follow-up Information Follow up with Jose F Ojeda MD In 2 days. Specialty: Otolaryngology Why: As needed Contact information: [address] [address] Follow up with [facility]. Specialty: Emergency Medicine Why: If symptoms worsen Contact information: [address] [facility] [address] Discharge Medication List as of 03/28/2015 12:48 Jade Drew MD 03/29/15 0005 do cumented in this encounter Miscellaneous Notes ED Triage Notes - Thi Simpson RN - 03/28/2015 10:38 AM PSTPt reports swelling in his th roat for the past three days, still able to swallow food but states it feels very tight. Sy mptoms started after inhaling some sawdust.Electronically signed by Thi Simpson RN at 10:40 AM PSTdocumented in this encounter Plan of Treatment Not on filedocumented as of this encounter Procedures + +--------+ + + + | Procedure Name | Priori | Date/Time | Associated Diagnosis | Comments | | | ty | | | | + +--------+ + + + | XR CHEST AP PORTABLE | STAT | 03/28/2015 | | Results for this | | | | 11:25 AM | | procedure are in the | | | | PST | | results section. | + +--------+ + + + | XR NECK SOFT TISSUE | STAT | 03/28/2015 | | Results for this | | | | 11:18 AM | | procedure are in the | | | | PST | | results section. | + +--------+ + + + documented in this encounter Results XR Chest AP Portable (03/28/2015 11:25 AM PST) + + | Specimen | + + | | + + + + + | Narrative | Performed At | + + + | EXAM: XR CHEST AP PORTABLE dated 03/28/2015 11:15 AM HISTORY: | [facility] | | inhalation of sawdust Comparison: None. TECHNIQUE: A single | | | portable view of the chest. FINDINGS: The lungs are symmetrically | | | aerated. They are clear. There are no large pleural effusions. | | | There is no pneumothorax. The cardiac and mediastinal contours | | | are not enlarged. The visible osseous structures are unremarkable. | | | IMPRESSION - No acute disease. Dictated and Signed by: | | | Angel Wolf MD Electronically signed: 03/28/2015 12:17 PM | | + + + + + | Procedure Note | + + | Kuldeep, Rad Results In - 03/28/2015 1:34 PM PST EXAM: XR CHEST AP PORTABLE dated | | 03/28/2015 11:15 AMHISTORY: inhalation of sawdustComparison: None.TECHNIQUE: A single | | portable view of the chest.FINDINGS:The lungs are symmetrically aerated. They are | | clear. There are no largepleural effusions. There is no pneumothorax. The cardiac and | | mediastinalcontours are not enlarged. The visible osseous structures are unremarkable. | | IMPRESSION -No acute disease. Dictated and Signed by: Angel Wolf MD | | Electronically signed: 03/28/2015 12:17 PM | | | |FINDINGS: | |The lungs are symmetrically aerated. They are clear. There are no large | |pleural effusions. There is no pneumothorax. The cardiac and mediastinal | |contours are not enlarged. The visible osseous structures are unremarkable. | | | |IMPRESSION - | | | |No acute disease. | | | |Dictated and Signed by: Angel Wolf MD | | Electronically signed: 03/28/2015 12:17 PM | + + + +---------+ + + | Performing | Address | City/State/Zipcode | Phone Number | | Organization | | | | + +---------+ + + | [facility] | | | | + +---------+ + + XR Neck Soft Tissue (03/28/2015 11:18 AM PST) + + | Specimen | + + | | + + + + + | Narrative | Performed At | + + + | EXAM: XR NECK SOFT TISSUE dated 03/28/2015 12:00 AM HISTORY:ORAL | [facility] | | SWELLING COMPARISON: None. FINDINGS:Frontal and lateral views | | | of the cervical soft tissues. No radiopaque foreign bodies. No | | | precervical soft tissue thickening. Normal size and appearance of | | | the epiglottis. Grossly unremarkable osseous structures. | | | IMPRESSION - No radiopaque foreign bodies. No plain film | | | evidence for soft tissue abnormality. Note: Consider CT as | | | warranted for more sensitive evaluation of the cervical and | | | paracervical soft tissues. Dictated and Signed by: Angel Milner | | | MD Maryann Electronically signed: 03/28/2015 12:18 PM | | + + + + + | Procedure Note | + + | Kuldeep, Rad Results In - 03/28/2015 1:34 PM PST EXAM: XR NECK SOFT TISSUE dated | | 03/28/2015 12:00 AMHISTORY:ORAL SWELLINGCOMPARISON: None.FINDINGS:Frontal and lateral | | views of the cervical soft tissues. No radiopaqueforeign bodies. No precervical soft | | tissue thickening. Normal size andappearance of the epiglottis. Grossly unremarkable | | osseous structures.IMPRESSION -No radiopaque foreign bodies.No plain film evidence for | | soft tissue abnormality.Note: Consider CT as warranted for more sensitive evaluation of | | the cervical andparacervical soft tissues.Dictated and Signed by: Angel Wolf MD | | Electronically signed: 03/28/2015 12:18 PM | |appearance of the epiglottis. Grossly unremarkable osseous structures. | | | |IMPRESSION - | | | |No radiopaque foreign bodies. | | | |No plain film evidence for soft tissue abnormality. | | | |Note: Consider CT as warranted for more sensitive evaluation of the cervical and | |paracervical soft tissues. | | | |Dictated and Signed by: Angel Wolf MD | | Electronically signed: 03/28/2015 12:18 PM | + + + +---------+ + + | Performing | Address | City/State/Zipcode | Phone Number | | Organization | | | | + +---------+ + + | [facility] | | | | + +---------+ + + documented in this encounter Visit Diagnoses + + | Diagnosis | + + | Throat pain in adult - Primary | + + documented in this encounter
--- OUTSIDE RECORDS SUMMARY | ~2019-12-25 | XMS | Encounter Summary ---
Demographics + + + | Address | [address] | | | [place] [address] | + + + | Home Phone | | + + + | Preferred Language | Unknown | + + + | Marital Status | | + + + | Bahai Affiliation | Unknown | + + + | Race | White | + + + | Ethnic Group | Not or | + + + Author + + + | Author | [facility] | | | and [place] [...] [place] | | | | | [address] | | + + + + + | Daysi Shafer | ECON | [address] | | | | | [place] [address] | | + + + + + Care Team Providers + +------+ + | Care Behaviour Support Teacher Name | Role | Phone | + +------+ + PCP | Unavailable | + +------+ + Encounter Details +--------+ + + + + | Date | Type | Department | Care Team | Description | +--------+ + + + + | 03/14/ | Hospital | [facility] | | | | 2009 | Encounter | MED CTR EMERGENCY | | | | | | CENTER [address] | | | | | | [place] | | | | | | [address] | | | | | | [phone] | | | +--------+ + + + [...]
--- OUTSIDE RECORDS SUMMARY | ~2019-12-25 | XMS | Encounter Summary ---
Demographics + + + | Address | [address] | | | [place] [address] | + + + | Home Phone | | + + + | Preferred Language | Unknown | + + + | Marital Status | | + + + | Methodist Affiliation | Unknown | + + + | Race | White | + + + | Ethnic Group | Not or | + + + Author + + + | Author | [facility] | | | and [place] | + + + | Organization | [facility] | | | and [place] | + + + | Address | Unknown | + + + | Phone | Unavailable | + + + Support + + + + + | Name | Relationship | Address | Phone | + + + + + | Lucrecia Zabala | ECON | [place] | | | | | [address] | | + + + + + | Daysi Shafer | ECON | [address] | | | | | [place] [address] | | + + + + + Care Team Providers + +------+ + | Care Title Camera Operator Name | Role | Phone | + +------+ + | Lydia Simpson PA-C | PCP | | + +------+ + Reason for Visit +--------+--------+ + | Reason | Onset | Comments | | | Date | | +--------+--------+ + | Other | 04/06/ | | | | 2012 | | +--------+--------+ + Encounter Details +--------+ + + + + | Date | Type | Department | Care Team | Description | +--------+ + + + + | 04/06/ | Telephone | [facility] | Maximiliano Macias | Other | | 2012 | | PHYSIATRY [address] | | | | [address] [facility] [address] | [place], [place] | | | | | [place], [place] | [address] | | | | | [address] | | | | | | [phone] | | | +--------+ + + + [...] this encounter Miscellaneous Notes Telephone Encounter - Neeta Palma - 04/12/2012 3:48 PM PSTPatient is going to see PCP and have them send chart notes to Dr Macias. elephone Encounter - Neeta Palma - 04/12/2012 3:38 P M PSTLeft message for patient to call office. Patient has O[employer] insurance listed. Need new ref erral for insurance. elephone Encounter - Chayito Cisse - 04/12/2012 10:36 AM PSTPlease schedule patient for follow up visit. Injections that we did last time were in the office visit. Thanks.Yesenia gill signed by Chayito Cisse at 04/12/2012 10:37 AM PSTTelephone Encounter - Inna Stern - 04/06/2012 5:13 PM PSTCall from patient inquiring about injection. Please advise and return call documented in th is encounter Plan of Treatment Not on filedocumented as of this encounter Visit Diagnoses Not on filedocumented in this encounter"
--- OUTSIDE RECORDS SUMMARY | ~2019-12-25 | XMS | Encounter Summary ---
Demographics + + + | Address | [address] | | | [place] [address] | + + + | Home Phone | | + + + | Preferred Language | Unknown | + + + | Marital Status | | + + + | Yazdanism Affiliation | Unknown | + + + | Race | White | + + + | Ethnic Group | Not or | + + + Author + + + | Author | [facility] | | | and [place] | + + + | Organization | [facility] | | | and [place] | + + + | Address | Unknown | + + + | Phone | Unavailable | + + + Support + + + + + | Name | Relationship | Address | Phone | + + + + + | Lucrecia Zabala | ECON | [place] | | | | | [address] | | + + + + + | Daysi Shafer | ECON | [address] | | | | | [place] [address] | | + + + + + Care Team Providers + +------+ + | Care Energy Sales Consultant Name | Role | Phone | + +------+ + | Doctor Mariella | PCP | | + +------+ + Reason for Visit +--------+ + | Reason | Comments | +--------+ + | Cough | since the beginning of the month | +--------+ + Encounter Details +--------+---------+ + + + | Date | Type | Department | Care Team | Description | +--------+---------+ + + + | 04/08/ | Office | [facility] | Blood, Shantelle | Acute non-recurrent | | 2019 | Visit | [facility] [address] | [address] | maxillary sinusitis | | | | [address] | [address] | (Primary Dx) | | | | [address] [facility] | [place] [address] | | | | | [place] [address] | [phone] | | | | | [phone] | | | +--------+---------+ + + + [...] + + + | Blood Pressure | 130/74 | 04/08/2018 12:25 PM | | | | | PST | | + + + + + | Pulse | 96 | 04/08/2018 12:25 PM | | | | | PST | | + + + + + | Temperature | 36.2 C (97.1 F) | 04/08/2018 12:25 PM | | | | | PST | | + + + + + | Respiratory Rate | 18 | 04/08/2018 12:25 PM | | | | | PST | | + + + + + | Oxygen Saturation | 98% | 04/08/2018 12:25 PM | | | | | PST | | + + + + + | Inhaled Oxygen | - | - | | | Concentration | | | | + + + + + | Weight | 99.8 kg (220 lb) | 04/08/2018 12:25 PM | | | | | PST | | + + + + + | Height | 165.1 cm (5' 5") | 04/08/2018 12:25 PM | | | | | PST | | + + + + + | Body Mass Index | 36.61 | 04/08/2018 12:25 PM | | | | | PST | | + + + + + documented in this encounter Patient Instructions Patient Instructions Shantelle BensonLISA - 04/08/2018 12:34 PM PST Sinusitis (Antibiotic Treatment) The sinuses are [...] sinuses drain fluids. You can use an hpdu-qrk-csewcuteekgwqxqrdgp,unless a similar medicine was prescribed to you. [...] decongestants. They can raise blood pressure. ) Vcwm-pqp-wssrqamygsycrzwgmokssisn help if allergies contributed to your sinusitis. [...] with of your vaccines. Date Last Reviewed: 01/11/201719992732-3504 [employer]. [address] [place] [address], [place] [address]. All righ ts reserved. This information is not intended as a substitute for professional medical care. Always follow your healthcare professional's instructions. documented in this encounter Progress Notes Shantelle BensonLISA - 04/08/2018 12:40 PM PSTFormatting of this note might be dif ferent from the original. Subjective: Angel Shafer Jr. is a 38 y.o. male who presents to the clinic with a complaint of C ough (since the beginning of the month) Cough This is a new problem. The current episode started 1 to 4 weeks ago. The problem has been w axing and waning. The problem occurs every few hours. The cough is productive of sputum. Ass ociated symptoms include chills, ear congestion, headaches, nasal congestion, postnasal drip , rhinorrhea, a sore throat and sweats. Pertinent negatives include no chest pain, ear pain, fever, heartburn, hemoptysis, myalgias, shortness of breath, weight loss or wheezing. Nothi ng aggravates the symptoms. He has tried rest and OTC cough suppressant for the symptoms. Th e treatment provided mild relief. There is no history of asthma, bronchiectasis, bronchitis, COPD, emphysema, environmental allergies or pneumonia. dental pressure No Known Allergies Medications: Patient Reported Taking Dosage ibuprofen (ADVIL,MOTRIN) 600 MG tablet (Taking) Take [...] Rare Review of Systems Constitutional: Positive for activity change, appetite change, chills and fatigue. Negative for fever and weight loss. HENT: Positive for congestion, postnasal drip, rhinorrhea, sinus pain, sinus pressure and s ore throat. Negative for ear pain. Eyes: Negative. Respiratory: Positive for cough. Negative for hemoptysis, shortness of breath and wheezing. Cardiovascular: Negative. Negative for chest pain. Gastrointestinal: Negative. Negative for heartburn. Endocrine: Negative. Genitourinary: Negative. Musculoskeletal: Negative. Negative for myalgias. Skin: Negative. Allergic/Immunologic: Negative. Negative for environmental allergies. Neurological: Positive for headaches. Hematological: Negative. Psychiatric/Behavioral: Negative. See HPI Objective: Vitals: 04/08/18 1225 BP: 130/74 Pulse: 96 Resp: 18 Temp: 36.2 C (97.1 F) TempSrc: Temporal SpO2: 98% Weight: 99.8 kg (220 lb) Height: 1.651 m (5' 5") No LMP for male patient. Physical Exam Constitutional: He is oriented to person, place, and time. Vital signs are normal. He appea rs well-developed and well-nourished. He is cooperative. HENT: Head: Normocephalic. Head is with raccoon's eyes. Right Ear: Hearing, external ear and ear canal normal. Tympanic membrane is erythematous. Left Ear: Hearing, tympanic membrane, external ear and ear canal normal. Nose: Mucosal edema, rhinorrhea and sinus tenderness present. Right sinus exhibits maxillar y sinus tenderness. Left sinus exhibits maxillary sinus tenderness. Mouth/Throat: Uvula is midline. Mucous membranes are dry. Oropharyngeal exudate (thick reis purulent exudate), posterior oropharyngeal edema (cobblestone appearance) and posterior orop haryngeal erythema present. Bilateral turbinate petechiae Neck: Normal range of motion. Cardiovascular: Normal rate, regular rhythm, S1 normal, S2 normal, normal heart sounds and normal pulses. Pulses: Radial pulses are 2+ on the right side, and 2+ on the left side. Pulmonary/Chest: Effort normal and breath sounds normal. Lymphadenopathy: He has cervical adenopathy. Right cervical: Superficial cervical adenopathy present. Left cervical: Superficial cervical adenopathy present. Neurological: He is alert and oriented to person, place, and time. He has normal strength. Skin: Skin is warm, dry and intact. Psychiatric: He has a normal mood and affect. His speech is normal and behavior is normal. Judgment and thought content normal. Cognition and memory are normal. Nursing note and vitals reviewed. Assessment: 1. Acute non-recurrent maxillary sinusitis amoxicillin-clavulanate (AUGMENTIN) 500-125 mg per tablet Plan: 1. Acute non-recurrent maxillary sinusitis - amoxicillin-clavulanate (AUGMENTIN) 500-125 mg per tablet; Take 1 tablet by mouth 2 times daily for 10 days. Dispense: 20 tablet; Refill: 0 Take the full course of antibiotics as instructed. Do not stop taking them, even if you feel better. Drink plenty of water, hot tea, and other liquids. This may help thin mucus. It also may promote sinus drainage. Heat may help soothe painful areas of the face. Use a towel soaked in hot water. Or, sta nd in the shower and direct the hot spray onto your face. Using a vaporizer along with a men thol rub at night may also help. Anexpectorantcontaining guaifenesin may help thin the mucus and promote drainage fro m the sinuses. Sbrt-act-hnhxrjyiqrdpprxxnvgncls be used unless a similar medicine was prescribed. N hilda sprays work the fastest. Use one that contains phenylephrine or oxymetazoline. First bl ow the nose gently. Then use the spray. Do not use these medicines more often than directed on the label or symptoms may get worse. You may also use tablets containing pseudoephedrine. Avoid products that combine ingredients, because side effects may be increased. Read labels . You can also ask the pharmacist for help. (NOTE:Persons with high blood pressure should not use decongestants. They can raise blood pressure.) Wywj-gxu-rkorrvmyafoysmptmmkavafa help if allergies contributed to your sinusitis. Do not use nasal rinses or irrigation during an acute sinus infection, unless told to by your health care provider. Rinsing may spread the infection to other sinuses. Use acetaminophen or ibuprofen to control pain, unless another pain medicine was prescri bed. (If you have chronic liver or kidney disease or ever had a stomach ulcer, talk with you r doctor before using these medicines. Aspirin should never be used in anyone under 18 years of age who is ill with a fever. It may cause severe liver damage.) Don't smoke. This can worsen symptoms. See AVS for patient instructions. Diagnosis and plan including medications and side effects were discussed with the patient, information handout was given. Patient voices understanding of the plan and all questions we re answered. Follow up with Primary Care Provider or return to clinic if not improving in 1 week or if s ymptoms worsen. documented in this encounter Plan of Treatment Not on filedocumented as of this encounter Visit Diagnoses + + | Diagnosis | + + | Acute non-recurrent maxillary sinusitis - Primary | + + documented in this encounter
--- OUTSIDE RECORDS SUMMARY | ~2019-12-25 | XMS | Encounter Summary ---
Demographics + + + | Address | [address] | | | [place] [address] | + + + | Home Phone | | + + + | Preferred Language | Unknown | + + + | Marital Status | | + + + | Sabianist Affiliation | Unknown | + + + | Race | White | + + + | Ethnic Group | Not or | + + + Author + + + | Author | [facility] | | | and [place] | + + + | Organization | [facility] | | | and [place] | + + + | Address | Unknown | + + + | Phone | Unavailable | + + + Support + + + + + | Name | Relationship | Address | Phone | + + + + + | Lucrecia Zabala | ECON | [place] | | | | | [address] | | + + + + + | Daysi Shafer | ECON | [address] | | | | | [place] [address] | | + + + + + Care Team Providers + +------+ + | Care Press Shop Supervisor Name | Role | Phone | + +------+ + | Lydia Simpson PA-C | PCP | | + +------+ + Reason for Referral Diagnostic/Screening (Routine) +--------+--------+ + + + + | Status | Reason | Specialty | Diagnoses / | Referred By | Referred To | | | | | Procedures | Contact | Contact | +--------+--------+ + + + + | Closed | | Radiology | Diagnoses | | [facility] | | | | | Thoracic | [facility], | Imaging [address] | | | | | back pain | Maximiliano Milner MD | [address] | | | | | Procedures | [address] | [address] [place] | | | | | MRI Thoracic | [address] [place] | [place] | | | | | Spine wo | [place] | [address] | | | | | Contrast | [address] | Phone: | | | | | | Phone: | [phone] | | | | | | [phone] | Fax: | | | | | | Fax: | [phone] | | | | | | [phone] | | +--------+--------+ + + + + Reason for Visit + + + | Reason | Comments | + + + | Back Pain | Upper back pain between the shoulder blades | + + + Evaluate & Treat (Routine) +--------+--------+ + + + + | Status | Reason | Specialty | Diagnoses / | Referred By | Referred To | | | | | Procedures | Contact | Contact | +--------+--------+ + + + + | Closed | | Physical | Diagnoses | Calvin, | Gilberto, | | | | Medicine and | Pain in | Lydia Woo, | Maximiliano Milner MD | | | | Rehabilitatio | thoracic | PA-C [address] | | | | n | spine | [address] | [address] [place] | | | | | | [place], | [place], [place] | | | | | | [place] | [address] Phone: | | | | | | [address] | [phone] | | | | | | Phone: | Fax: | | | | | | [phone] | [phone] | | | | | | Fax: | | | | | | | [phone] | | +--------+--------+ + + + + Encounter Details +--------+---------+ + + + | Date | Type | Department | Care Team | Description | +--------+---------+ + + + | 05/23/ | Office | [facility] | Maximiliano Macias | Thoracic back pain | | 2012 | Visit | PHYSIATRY [address] | T[address] | (Primary Dx); BACK | | | | [address] | [address] [place] | PAIN, THORACIC | | | | [place], [place] | [address] | REGION; Thoracic | | | | [address] | | spondylosis without | | | | [phone] | | myelopathy | +--------+---------+ + + + Social History + +-------+ [...] + + + | Blood Pressure | 135/89 | 05/23/2012 10:41 AM | | | | | PDT | | + + + + + | Pulse | 80 | 05/23/2012 10:41 AM | | | | | PDT [...] Weight | 86.2 kg (190 lb) | 05/23/2012 10:41 AM | | | | | PDT | | + + + + + | Height | 162.6 cm (5' 4") | 05/23/2012 10:41 AM | | | | | PDT | | + + + + + | Body Mass Index | 32.61 | 05/23/2012 10:41 AM | | | | | PDT | | + + + + + documented in this encounter Progress Maximiliano Donohue MD - 05/23/2012 10:52 AM PDT Subjective: Patient ID: Angel Sepulveda Hollis Lauren is a 32 y.o. male. Chief Complaint Patient presents with Back Pain Upper back pain between the shoulder blades HPI The patient is being seen today in follow-up for complaints of upper back pain between the shoulder blades. The patient's symptoms began after a slip and fall in March 2009. He has been seen for this complaint on multiple occasions previously. He has had multiple treatmen ts but nothing has ever provided much relief. He describes his symptoms as aching. His sympt oms have been constant. His symptoms worsen with increased activity such as bending, twistin g, lifting,etc... His symptoms improve with the use of medications which dull the pain. He cannot find a comf ortable position to relieve the pain. He describes numbness in the upper back, nothing in th e extremities. He denies weakness. Treatments for these complaints have included the use of Tramadol, Advil and trigger point injections. He has also tried physical therapy in the past which he states made the pain worse. Prior injections have included a trigger point type injection with Kenalog in the region of greatest pain. MRI of the thoracic spine was reviewed in detail today. Patient's medications, allergies, past medical, surgical, social and family histories were reviewed and updated as appropriate. Review of Systems No complaints other than those listed above in HPI. Objective: Physical Exam Nursing note and vitals reviewed. Constitutional: He is oriented to person, place, and time. He appears well-developed and we ll-nourished. HENT: Head: Normocephalic and atraumatic. Neck: No tracheal deviation present. Cardiovascular: Normal rate and regular rhythm. Pulmonary/Chest: Effort normal and breath sounds normal. No respiratory distress. Lymphadenopathy: He has no cervical adenopathy. Neurological: He is alert and oriented to person, place, and time. He has normal strength. No cranial nerve deficit or sensory deficit. He displays a negative Romberg sign. Coordinati on and gait normal. He displays no Babinski's sign on the right side. He displays no Babinsk i's sign on the left side. Reflex Scores: Tricep reflexes are 2+ on the right side and 2+ on the left side. Bicep reflexes are 2+ on the right side and 2+ on the left side. Brachioradialis reflexes are 2+ on the right side and 2+ on the left side. Patellar reflexes are 2+ on the right side and 2+ on the left side. Achilles reflexes are 2+ on the right side and 2+ on the left side. Skin: Skin is warm, dry and intact. No abrasion, no bruising, no ecchymosis, no laceration and no rash noted. Psychiatric: He has a normal mood and affect. His speech is normal and behavior is normal. Thought content normal. Cognition and memory are normal. Musculoskeletal: Range of motion testing of the cervical spine was unremarkable. Spurling sign was negative. Shoulder examination shows well preserved range of motion with external r otation, internal rotation and abduction. Strength testing, including strength testing of the infraspinatus, supraspinatus and subscapularis, in bilateral upper extremities showed 5/ 5 strength with no focal weakness. He localized the majority of the pain to midline at appro ximately T4. Assessment: 1. Thoracic back pain 2. BACK PAIN, THORACIC REGION 3. Thoracic spondylosis without myelopathy Plan: 1. Given the chronicity and constancy of the pain and the lack of reIief from conservative measures I agreed to order a new MRI of the thoracic spine for further evaluation. The prio r images did not show any significant pathology in the region of pain. This will be schedul ed in the near future once it has been approved by his insurance. 2. The patient was given a prescription for a TENS unit trial. 3. The patient may want to consider a trial of home child care provider. documented in this encounter Plan of Treatment + +---------+--------+ + + | Name | Type | Priori | Associated Diagnoses | Order Schedule | | | | ty | | | + +---------+--------+ + + | MRI Thoracic Spine | Imaging | Routin | Thoracic back pain | Expected: | | wo Contrast | | e | | 05/23/2012, Expires: | | | | | | 05/23/2013 | + +---------+--------+ + + documented as of this encounter Visit Diagnoses + + | Diagnosis | + + | Thoracic back pain - Primary Pain in thoracic spine | + + | BACK PAIN, THORACIC REGION Pain in thoracic spine | + + | Thoracic spondylosis without myelopathy | + + documented in this encounter
--- OUTSIDE RECORDS SUMMARY | ~2019-12-25 | XMS | Encounter Summary ---
Demographics + + + | Address | [address] [facility] | | | [place] [address] | + + + | Home Phone | | + + + | Preferred Language | Unknown | + + + | Marital Status | | + + + | Episcopal Affiliation | Unknown | + + + | Race | White | + + + | Ethnic Group | Not or | + + + Author + + + | Author | [facility] | | | and [place] | + + + | Organization | [facility] | | | and [place] | + + + | Address | Unknown | + + + | Phone | Unavailable | + + + Support + + + + + | Name | Relationship | Address | Phone | + + + + + | Lucrecia Zabala | ECON | [place] | | | | | [address] | | + + + + + | Daysi Shafer | ECON | [address] | | | | | [place] [address] | | + + + + + Care Team Providers + +------+ + | Care Durable Medical Equipment Technician Name | Role | Phone | + +------+ + | Unknown, Doctor | PCP | | + +------+ + Reason for Referral Evaluate & Treat (Urgent) +--------+ + + + + + | Status | Reason | Specialty | Diagnoses / | Referred By | Referred To | | | | | Procedures | Contact | Contact | +--------+ + + + + + | Closed | Specialty | Urology | Diagnoses | | [place], | | | Services | | Epididymal | John, | Kwesi Dennis MD | | | Required | | cyst | [place] A, | [address] | | | | | Scrotal pain | [address] [place] | | | | | | [address] | [place], [place] | | | | | | [place], | [address] | | | | | | [place] | Phone: | | | | | | [address] | [phone] | | | | | | Phone: | Fax: | | | | | | [phone] | [phone] | | | | | | Fax: | | | | | | | [phone] | | +--------+ + + + + + Reason for Visit + + + | Reason | Comments | + + + | Groin Pain | | + + + Encounter Details +--------+ + + + + | Date | Type | Department | Care Team | Description | +--------+ + + + + | 07/29/ | Emergency | [facility] | [place], | Epididymal cyst | | 2019 | | [facility] | Alton Pace MD [address] | (Primary Dx); | | | | CENTER [address] | [address] [place] | Scrotal pain | | | | [place] | [place] [address] | | | | | [address] | [phone] | | | | | [phone] | | | +--------+ + + + [...] + + + | Blood Pressure | 129/80 | 07/29/2018 12:28 PM | | | | | PDT | | + + + + + | Pulse | 83 | 07/29/2018 12:28 PM | | | | | PDT | | + + + + + | Temperature | 36.1 C (97 F) | 07/29/2018 10:39 AM | | | | | PDT | | + + + + + | Respiratory Rate | 16 | 07/29/2018 10:36 AM | | | | | PDT | | + + + + + | Oxygen Saturation | 96% | 07/29/2018 12:28 PM | | | | | PDT | | + + + + + | Inhaled Oxygen | - | - | | | Concentration | | | | + + + + + | Weight | 95.3 kg (210 lb) | 07/29/2018 10:38 AM | | | | | PDT | | + + + + + | Height | 165.1 cm (5' 5") | 07/29/2018 10:38 AM | | | | | PDT | | + + + + + | Body Mass Index | 34.95 | 07/29/2018 10:38 AM | | | | | PDT | | + + + + + documented in this encounter Discharge Instructions Instructions Alton Lopez MD - 07/29/2018Wear supportive underwear as discussed Follow-up with Dr. Howell Return for any concerns documented in this encounter Medications at Time [...] as of this encounter ED Notes Alton Lopez MD - 07/29/2018 10:39 AM PDTFormatting of this note might be differe nt from the original. [facility] Angel Shafer Jr. Emergency Department Encounter Note [address] [place] [id number] PCP:Doctor Mariella DIAGNOSIS: 1. Epididymal cyst 2. Scrotal pain CHIEF COMPLAINT: Chief Complaint Patient presents with Groin Pain Mode of Arrival: walk-in ED Room: ED14 HPI Angel Shafer is a 38 y.o. male who presents to the Emergency Department for evaluation of groin pain. The patient's had 2 days of right-sided groin pain. Symptoms started with a s uprapubic discomfort but then he felt a lump in his right testicle which has persisted. He states he feels "like I just had a vasectomy." He has not had injury or trauma. No fevers or chills. No dysuria or hematuria. He has had appendectomy BUN no other previous abdomina l surgeries. PAST MEDICAL & SURGICAL HISTORY Patient Active Problem List Diagnosis Date Noted THORACIC SPONDYLOSIS WITHOUT MYELOPATHY NECK PAIN BACK PAIN, THORACIC REGION THORACIC DISC DISPLACEMENT UNSPECIFIED DISORDER TEETHandSUPPORTING STRUCTURES 11/11/2011 Note Last Updated: 12/13/2014 ICD-10 Record update Past Surgical History: Procedure Laterality Date APPENDECTOMY CARPAL TUNNEL RELEASE Right [facility] Kaur[facility] [place] 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 Use r may not have seen previous data.) Resp: 16 SpO2: 95 %(Simultaneous filing. User may not beyer ve seen previous data.) BP: (!) 151/93(Simultaneous filing. User may not have seen previous data.) Body mass index is 34.95 kg/m. Constitutional: Well-appearing male patient. HEENT: Atraumatic. Neck: Supple with full range of motion. Chest: Good air movement bilaterally. No wheezes, No rales. Cardiovascular: Normal S1 S2 Abdomen: Soft, mild suprapubic tenderness, no tenderness elsewhere, no rebound, guarding, or masses, bowel tones normal and no pulsatile masses. : Normal external genitalia. No discharge, rashes, or lesions. Left testicle normal and nontender. Right testicle is tender with an appreciable mass on the posterior medial aspec t Back: Within normal limits No CVA tenderness Extremities: Nontender. Neurologic: Alert & oriented. No focal deficits, Gait and speech are normal Psychiatric: Normal mood, affect and judgement. LABS Results for orders placed or performed during the hospital encounter of 07/29/18 Urinalysis With Microscopic Result Value Ref Range Color Yellow Light Yellow, Yellow, Straw Clarity Clear Clear pH, Urine 6.0 5.0 - 8.0 Specific [place] 1.021 1.001 - 1.030 Protein, Urine 30 mg/dL (A) Negative Blood, Urine Negative Negative Glucose, Urine Negative Negative Ketones, Urine Negative Negative Bilirubin, Urine Negative Negative Nitrite, Urine Negative Negative Leukocyte Esterase, Urine Negative Negative Urobilinogen, Urine Negative 0.2 mg/dL, 1.0 mg/dL, Negative WBC UA 0-2 0 - 2 /HPF RBC UA 0-2 0 - 2 /HPF SQUAMOUS EPITHELIAL UA 0-2 0 - 2 /LPF BACTERIA UA Negative Negative /HPF MUCUS UA Present (A) Negative /LPF IMAGING STUDIES (X-Rays interpreted by ED Physician) Ultrasound of the scrotum and testicles, per report from the html web developer, shows an 8 mil limeter epididymal cyst but no other acute findings. Nothing to suggest torsion or an acute infectious process ED COURSE & MEDICAL DECISION MAKING Pertinent Labs & Imaging studies were reviewed along with EMS notes and longterm record s if applicable. (See chart for details) Medications and Allergy list reviewed. Nurses note and old records were reviewed The patient was seen and examined, urinalysis was obtained and unremarkable. Ultrasound sh ows an epididymal cyst but is otherwise unremarkable. The patient was referred to Dr. Diya duarte for consultation for any ongoing pain and for further evaluation of this cyst. I did lacho mmend supportive undergarments and anti-inflammatories in the interim. Follow up information and return precautions were discussed in detail at the bedside prior to discharge and all questions were answered. Last Set of Vital Signs: Temp: 36.1 C (97 F) Pulse: 83 Resp: 16 SpO2: 96 % BP: 129/80 FINAL IMPRESSION ICD-10-CM ICD-9-CM 1. Epididymal cyst N50.3 608.89 2. Scrotal pain N50.82 608.9 Follow-up Information Kwesi Howell MD. Specialty: Urology Contact information: [address] [facility] [address] Discharge Medication List as of 07/29/2018 12:34 Portions of this chart were created with [employer] voice recognition software. Inadvertent so und alike substitutions may be present and are unintentional Alton Lopez MD 07/29/18 1323 Florentin, Kasia Pace RN - 07/29/2018 10:35 AM PDTC/o right groin pain x 2 days. C/o small lump to right testicle. documented in this enco unter Plan of Treatment + + +--------+ + + | Name | Type | Priori | Associated Diagnoses | Order Schedule | | | | ty | | | + + +--------+ + + | [facility] - | Outpatient | Routin | Epididymal cyst | Ordered: 07/29/2018 | | [place] | Referral | e | Scrotal pain | | + + +--------+ + + documented as of this encounter Procedures + +--------+ + + + | Procedure Name | Priori | Date/Time | Associated Diagnosis | Comments | | | ty | | | | + +--------+ + + + | US SCROTUM AND | STAT | 07/29/2018 | | Results for this | | TESTICLES | | 12:06 PM | | procedure are in the | | | | PDT | | results section. | + +--------+ + + + | URINALYSIS WITH | STAT | 07/29/2018 | | Results for this | | MICROSCOPIC | | 11:24 AM | | procedure are in the | | | | PDT | | results section. | + +--------+ + + + documented in this encounter Results US Scrotum And Testicles (07/29/2018 12:06 PM PDT) + + | Specimen | + + | | + + + + + | Narrative | Performed At | + + + | TECHNIQUE: B-mode ultrasound with color and duplex doppler of the | [facility] | | testes and scrotum CLINICAL INFORMATION: Rt testicular pain/lump. | | | History of varicocele years ago. COMPARISONS: None available. | | | FINDINGS: RIGHT SCROTUM: Testicle: Normal in size and | | | echotexture, without focal lesion. Color Doppler: Normal color | | | Doppler flow pattern of the testicle. Size: 4.4 x 2.0 x 2.9 cm | | | Epididymis: There is an epididymal head cyst with layering internal | | | debris measuring up to 8 mm. LEFT SCROTUM: Testicle: Normal | | | in size and echotexture, without focal lesion. Color Doppler: Normal | | | color Doppler flow pattern of the testicle. Size: 4.5 x 2.4 x 3.0 cm | | | Epididymis: Normal. No hyperemia. HYDROCELE: Small bilateral | | | hydroceles. VARICOCELE: Small left varicocele. IMPRESSION | | | - No testicular mass or evidence of torsion. Right epididymal | | | head cyst with internal debris, probable small spermatocele. Small | | | bilateral hydroceles. Small left varicocele. Notification: A | | | preliminary report was relayed to the ordering provider by the | | | echo vascular technologist immediately following the exam. Dictated | | | and Signed by: Wander Porter MD Electronically signed: 07/29/2018 | | | 12:58 PM | | + + + + + | Procedure Note | + + | Kuldeep, Rad Results In - 07/29/2018 1:01 PM PDT TECHNIQUE: B-mode ultrasound with color | | and duplex doppler of the testes andscrotumCLINICAL INFORMATION: Rt testicular | | pain/lump. History of varicocele years ago.COMPARISONS: None available.FINDINGS: RIGHT | | SCROTUM:Testicle: Normal in size and echotexture, without focal lesion. Color Doppler: | | Normal color Doppler flow pattern of the testicle.Size: 4.4 x 2.0 x 2.9 cmEpididymis: | | There is an epididymal head cyst with layering internal debrismeasuring up to 8 mm.LEFT | | SCROTUM:Testicle: Normal in size and echotexture, without focal lesion. Color Doppler: | | Normal color Doppler flow pattern of the testicle.Size: 4.5 x 2.4 x 3.0 cmEpididymis: | | Normal. No hyperemia.HYDROCELE:Small bilateral hydroceles.VARICOCELE:Small left | | varicocele.IMPRESSION - No testicular mass or evidence of torsion.Right epididymal head | | cyst with internal debris, probable small spermatocele.Small bilateral hydroceles. | | Small left varicocele. Notification: A preliminary report was relayed to the ordering | | provider by theultrasound technologist immediately following the exam.Dictated and | | Signed by: Wander Porter MD Electronically signed: 07/29/2018 12:58 PM | |measuring up to 8 mm. | | | | | |LEFT SCROTUM: | |Testicle: Normal in size and echotexture, without focal lesion. | |Color Doppler: Normal color Doppler flow pattern of the testicle. | |Size: 4.5 x 2.4 x 3.0 cm | |Epididymis: Normal. No hyperemia. | | | | | |HYDROCELE: | |Small bilateral hydroceles. | | | |VARICOCELE: | |Small left varicocele. | | | | | |IMPRESSION - | |No testicular mass or evidence of torsion. | | | |Right epididymal head cyst with internal debris, probable small spermatocele. | | | |Small bilateral hydroceles. Small left varicocele. | | | |Notification: A preliminary report was relayed to the ordering provider by the | |echo vascular technologist immediately following the exam. | | | |Dictated and Signed by: Wander Porter MD | | Electronically signed: 07/29/2018 12:58 PM | + + + +---------+ + + | Performing | Address | City/State/[facility] Cent[facility]ode | Phone Number | | Organization | | | | + +---------+ + + | [facility] | | | | + +---------+ + + Urinalysis With Microscopic (07/29/2018 11:24 AM PDT) + + + + + + [...] + + + | pH, Urine | 6.0 | 5.0 - 8.0 | [facility] | | | | [facility] | | [facility] | | | [facility] - | | | | | | LABORATORY | | + + + + + + | Specific | 1.021 | 1.001 - 1.030 | [facility] | | | [place], | | | [facility] | | [...] + + + + | Urobilinoge | Negative | 0.2 mg/dL, 1.0 | [facility] | [...] | Specimen | + + | Urine | + + + + + + + | Performing | Address | City/State/Zipcode | Phone Number | | Organization | | | | + + + + + | [facility] | [address] | [place] | [phone] | | [facility] | | [address] | | | - LABORATORY | | | | + + + + + documented in this encounter Visit Diagnoses + + | Diagnosis | + + | Epididymal cyst - Primary Other specified disorder of male genital organs | + + | Scrotal pain Unspecified disorder of male genital organs | + + documented in this encounter
--- OUTSIDE RECORDS SUMMARY | ~2019-12-25 | XMS | Encounter Summary ---
Demographics + + + | Address | [address] | | | [place] [address] | + + + | Home Phone [...] + + + | Author | [facility] | | | and [place] | + + + | Organization | [facility] | | | and [place] | + + + | Address | Unknown | + + + | Phone | Unavailable | + + + Support + + + + + | Name | Relationship | Address | Phone | + + + + + | Lucrecia Zabala | ECON | [place] | | | | | [address] | | + + + + + | Daysi Shafer | ECON | [address] | | | | | [place] [address] | | + + + + + Care Team Providers + +------+ + | Care Houseperson Name | Role | Phone | + +------+ + PCP | Unavailable | + +------+ + Encounter Details +--------+ + + + + | Date | Type | Department | Care Team | Description | +--------+ + + + + | 12/15/ | Hospital | [facility] | RennyyaimavirgilioMaximiliano woodward | | | 2009 - | Encounter | [facility] | MD Annia [address] | | | | | [address] [place] | [place] | | | 01/10/ | | [facility] [place] [address] | [address] | | | 2009 | | [phone] | | | +--------+ + + + [...]
== END 2019-12-25 20:12 | disposition home or self-care (01) ==
LOC: ED 19:40
DX: T18.108A Unspecified foreign body in esophagus causing other injury, initial encounter (principal); F17.200 Nicotine dependence, unspecified, uncomplicated
CPT/HCPCS: 99283